=== PATIENT | female | born 1970 | race Caucasian/White ===

== ENCOUNTER 2016-08-02 15:43 | Emergency (ER) | payer SELFPAY ==
--- NOTE | 2016-08-02 16:34 | ER Document Report ---
ED Medical Screen (RME) - General Chief Complaint: Breathing Difficulty Stated Complaint: BREATHING ISSUES Notes: 46 yo female c/o cough and difficulty breathing x 1 month. symptoms worse since New Years Mayela. Seen in ED 07/03 for same. Treated with abx, steroids, inhalers and breathing treatments. Symptoms improved briefly. + wheezing, nonproductive cough. + [place]. no hx/o asthma or COPD. + previous smoker. stopped last month since getting sick. + Hx/o Lupus, Fibro. + fever. + headaches TRAVEL OUTSIDE OF THE [place] IN LAST 30 DAYS: No - Related Data Allergies/Adverse Reactions: acetaminophen [From Percocet] Allergy (Verified 05/09/14 19:49) aspirin [Aspirin] Allergy (Verified 05/09/14 19:49) citalopram hydrobromide [From Celexa] Allergy (Verified 09/20/14 15:21) hydrocortisone [Hydrocortisone] Allergy (Verified 09/20/14 15:21) morphine [Morphine] Allergy (Verified 05/09/14 19:49) NSAIDS (Non-Steroidal Anti-Inflamma [Nsaids] Allergy (Verified 05/09/14 19:49) oxycodone HCl [From Percocet] Allergy (Verified 05/09/14 19:49) pregabalin [From Lyrica] Allergy (Verified 09/20/14 15:21) Sulfa (Sulfonamide Antibiotics) Allergy (Verified 05/09/14 19:49) Past Medical History - Social History Chew tobacco use (# tins/day): No Frequency of alcohol use: None Drug Abuse: None Pulmonary Medical History: Reports: Hx COPD Neurological Medical History: Reports: Hx Migraine - Immunizations Hx Diphtheria, Pertussis, Tetanus Vaccination: No Physical Exam - Vital signs Vitals: Temp Pulse Resp BP Pulse Ox 98.2 F 107 H 20 126/64 H 96 08/02/16 16:03 08/02/16 16:03 08/02/16 16:03 08/02/16 16:03 08/02/16 16:03 Course - Vital Signs Vital signs: Temp Pulse Resp BP Pulse Ox 98.2 F 107 H 20 126/64 H 96 08/02/16 16:03 08/02/16 16:03 08/02/16 16:03 08/02/16 16:03 08/02/16 16:03
[2016-08-02] MEDS ORDERED: PREDNISONE 20 MG TABLET PO ONE ×2 (16:35→18:16)
[2016-08-02] MEDS ORDERED: ALBUTEROL SULFATE 0.083% NEB 2.5 MG/3 ML AMPUL NEB ONE ×2 (16:35→17:48)
[2016-08-02 17:20] LABS: ALANINE AMINOTRANSFERASE 29 U/L (9-52); ALBUMIN 4.9 g/dL (3.5-5.0); ALKALINE PHOSPHATASE 96 U/L (38-126); ANION GAP 14 (5-19); ASPARTATE AMINO TRANSFERASE 21 U/L (14-36); BILIRUBIN,TOTAL 0.4 mg/dL (0.2-1.3); BLOOD UREA NITROGEN 14 mg/dL (7-20); CALCIUM 9.9 mg/dL (8.4-10.2); CARBON DIOXIDE 22 mmol/L (22-30); CHLORIDE 105 mmol/L (98-107); CREATININE RESULT 0.72 mg/dL (0.52-1.25); GLUCOSE 89 mg/dL (75-110); POTASSIUM 4.7 mmol/L (3.6-5.0); SODIUM 141.3 mmol/L (137-145); TOTAL PROTEIN 7.8 g/dL (6.3-8.2)
[2016-08-02] MEDS ORDERED: IPRATROPIUM/ALBUTEROL 0.5-2.5 MG/3 ML AMPUL NEB ONE ×2 (17:47→18:16)
[2016-08-02 17:50] LABS: ABSOLUTE BASOPHILS # (AUTO) 0.1 10^3/uL (0.0-0.2); ABSOLUTE EOSINOPHILS # (AUTO) 0.5 10^3/uL (0.0-0.6); ABSOLUTE LYMPHOCYTES (AUTO) 1.4 10^3/uL (0.5-4.7); ABSOLUTE MONOCYTES (AUTO) 0.4 10^3/uL (0.1-1.4); ABSOLUTE NEUT (AUTO) 2.9 10^3/uL (1.7-8.2); BASOPHILS % (AUTO) 1.3 % (0-2); EOSINOPHILS % (AUTO) 9.4 % (0-6); HEMATOCRIT 31.2 % (36.0-47.0); HEMOGLOBIN 9.5 g/dL (12.0-15.5); HGB HCT DIFFERENCE -2.7; LYMPHOCYTES % (AUTO) 27.5 % (13-45); MEAN CORPUSCULAR HEMOGLOBIN 18.4 pg (27.0-33.4); MEAN CORPUSCULAR HGB CONC 30.5 g/dL (32.0-36.0); MEAN CORPUSCULAR VOLUME 60 fl (80-97); MONOCYTES % (AUTO) 7.1 % (3-13); RED BLOOD COUNT 5.18 10^6/uL (3.72-5.28); RED CELL DISTRIBUTION WIDTH 21.1 % (11.5-14.0); SEGMENTED NEUTROPHILS % (AUTO) 54.7 % (42-78); WHITE BLOOD COUNT 5.2 10^3/uL (4.0-10.5)
[2016-08-02 17:58] LABS: ANISOCYTOSIS 3+; HYPOCHROMASIA SLIGHT; MICROCYTOSIS 3+; OVALOCYTES SLIGHT; TEAR DROP CELLS SLIGHT
[2016-08-02 18:00] LABS: POIKILOCYTOSIS 1+; TARGET CELLS 1+
--- NOTE | 2016-08-02 18:08 | ER Document Report ---
ED Respiratory Problem - General Chief Complaint: Breathing Difficulty Stated Complaint: BREATHING ISSUES Notes: The patient is a 46-year-old female, past medical history former smoker (quit one month ago), presents with 1 month of dry cough. She was placed on azithromycin, steroids and albuterol 4 weeks ago with mild relief of her symptoms. Her symptoms started back when she was running around her [place]. Her family members had similar symptoms, but their cough resolved. She tried her albuterol without much relief. She denies chest pain, fevers, sputum, leg swelling, nausea, vomiting, back pain or recent travel. TRAVEL OUTSIDE OF THE [place] IN LAST 30 DAYS: No - Related Data Allergies/Adverse Reactions: acetaminophen [From Percocet] Allergy (Verified 05/09/14 19:49) aspirin [Aspirin] Allergy (Verified 05/09/14 19:49) citalopram hydrobromide [From Celexa] Allergy (Verified 09/20/14 15:21) hydrocortisone [Hydrocortisone] Allergy (Verified 09/20/14 15:21) morphine [Morphine] Allergy (Verified 05/09/14 19:49) NSAIDS (Non-Steroidal Anti-Inflamma [Nsaids] Allergy (Verified 05/09/14 19:49) oxycodone HCl [From Percocet] Allergy (Verified 05/09/14 19:49) pregabalin [From Lyrica] Allergy (Verified 09/20/14 15:21) Sulfa (Sulfonamide Antibiotics) Allergy (Verified 05/09/14 19:49) Past Medical History - Social History Smoking Status: Current Some Day Smoker Chew tobacco use (# tins/day): No Frequency of alcohol use: None Drug Abuse: None Family History: Reviewed & Not Pertinent Patient has suicidal ideation: No Patient has homicidal ideation: No Pulmonary Medical History: Reports: Hx COPD Neurological Medical History: Reports: Hx Migraine - Immunizations Hx Diphtheria, Pertussis, Tetanus Vaccination: No Review of Systems - Review of Systems Notes: REVIEW OF SYSTEMS: CONSTITUTIONAL: Denies fever, chills, or sweats. Denies recent illness. EENT: Denies eye, ear, throat, or mouth pain or symptoms. Denies nasal or sinus congestion. CARDIOVASCULAR: Denies chest pain. RESPIRATORY: +cough, wheezing GASTROINTESTINAL: Denies abdominal pain. Denies nausea, vomiting, or diarrhea. Denies constipation. Last BM: GENITOURINARY: Denies difficulty urinating, painful urination, burning, frequency, or blood in urine. FEMALE GENITOURINARY: Denies vaginal bleeding, abnormal or irregular periods. MUSCULOSKELETAL: Denies neck or back pain or joint pain or swelling. SKIN: Denies rash or skin lesions. HEMATOLOGIC: Denies easy bruising or bleeding. LYMPHATIC: Denies swollen, enlarged glands. NEUROLOGICAL: Denies altered mental status or loss of consciousness. Denies headache. Denies weakness or paralysis or loss of use of either side. Denies problems with gait or speech. Denies sensory or motor loss. PSYCHIATRIC: Denies anxiety or stress or depression. ALL OTHER SYSTEMS REVIEWED AND NEGATIVE. Physical Exam - Vital signs Vitals: Temp Pulse Resp BP Pulse Ox 98.2 F 107 H 20 126/64 H 96 08/02/16 16:03 08/02/16 16:03 08/02/16 16:03 08/02/16 16:03 08/02/16 16:03 - Notes Notes: PHYSICAL EXAMINATION: GENERAL: Well-appearing, well-nourished and in no acute distress. HEAD: Atraumatic, normocephalic. EYES: Pupils equal round and reactive to light, extraocular movements intact, sclera anicteric, conjunctiva are normal. ENT: nares patent, oropharynx clear without exudates. Moist mucous membranes. NECK: Normal range of motion, supple without lymphadenopathy LUNGS: Mild end-expiratory wheezing. No respiratory distress. HEART: Regular rhythm without murmurs. Tachycardia. ABDOMEN: Soft, nontender, normoactive bowel sounds. No guarding, no rebound. No masses appreciated. EXTREMITIES: Normal range of motion, no pitting or edema. No cyanosis. NEUROLOGICAL: Cranial nerves grossly intact. Normal speech, normal gait. Normal sensory, motor, and reflex exams. PSYCH: Normal mood, normal affect. SKIN: Warm, Dry, normal turgor, no rashes or lesions noted. Course - Re-evaluation Re-evalutation: 08/02/16 19:42 After DuoNeb and steroids, patient's cough and shortness of breath improved. Repeat lung exam does not reveal any wheezing. Chest x-ray does not show any infiltrates. Due to history of smoking and 5 weeks of bronchitis symptoms, will send home with antibiotics, steroids and albuterol. 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 - Vital Signs Vital signs: Temp Pulse Resp BP Pulse Ox 98.2 F 107 H 20 126/64 H 96 08/02/16 16:03 08/02/16 16:03 08/02/16 16:03 08/02/16 16:03 08/02/16 16:03 - Laboratory Result Diagrams: 08/02/16 16:40 08/02/16 16:40 Laboratory results interpreted by me: 08/02/16 16:40 Hgb 9.5 L Hct 31.2 L MCV 60 L MCH 18.4 L MCHC 30.5 L RDW 21.1 H Eosinophils % 9.4 H - Diagnostic Test Radiology reviewed: Image reviewed, Reports reviewed Radiology results interpreted by me: 08/02/16 18:21 NAD Discharge - Discharge Clinical Impression: Chronic bronchitis Qualifiers: Chronic bronchitis type: simple Qualified Code(s): J41.0 - Simple chronic bronchitis Condition: Good Disposition: HOME, SELF-CARE Additional Instructions: BRONCHITIS WITH BRONCHOSPASM (WHEEZING): You have bronchitis with bronchospasm (wheezing). Sometimes people develop wheezing with a chest cold. This occurs either because of an underlying tendency toward asthma or because the virus itself irritates the bronchial tubes. This irritation causes cough, shortness of breath, and wheezing. Emergency treatment of bronchospasm may include adrenaline shots or bronchodilator aerosol. You may feel lightheaded and have a rapid pulse for an hour or two. Rest and get plenty of fluids. At home, we'll treat you with a bronchodilator inhaler. Corticosteroids may be required for some patients. Until you recover, avoid chemical fumes, dusts, pollens, and exercising in very cold or dry air. If you smoke, stop now! Most cases of bronchitis get better without antibiotics. We prescribe antibiotics when we believe bacteria are damaging your airways, or if there's high risk the bronchitis will worsen into pneumonia. Increase your fluid intake. A cool mist humidifier may make your lungs more comfortable. An expectorant (cough medicine that loosens phlegm) can help. Repeated episodes of bronchitis and bronchospasm may result in lung damage -- for example, chronic bronchitis, recurrent pneumonias, or emphysema. If you develop a fever, increased wheezing, chest pain, or severe shortness of breath, you should contact the doctor immediately. COUGH-SUPPRESSANT & EXPECTORANT MEDICATION: You are to use a cough medication as needed for relief of symptoms. This medicine is a combination of an expectorant (to make the mucous thinner and more easily "coughed up") and a cough suppressant (to reduce the frequency of coughing). The cough-suppressant medicine is related to narcotics. You may experience mild nausea and sleepiness. Some patients who are very sensitive to narcotics may have stomach pain from this medicine. Taking the medicine with food reduces these side effects. Do not drive or work with machinery until you know how this medicine affects you. The expectorant should have no side effects. Iodine-containing expectorants (such as organidin) should not be taken by persons with active thyroid disease unless approved by your doctor. Call the doctor if you develop shortness of breath, hives, rash, itching, lightheadedness, or severe nausea and vomiting. INHALED BRONCHODILATORS: You have received a treatment of and/or prescription for an inhaled bronchodilator -- a medication which stimulates the airways in the lung to dilate. This improves the flow of air in asthma, bronchitis, and emphysema. These medicines have some similarity to adrenaline, and can cause similar side effects: shakiness, racing heart, and a sense of nervousness. These side effects decrease with time. Contact your doctor if these side effects are severe. Do not over-use the medicine. Too-frequent use of the inhaler may make it ineffective. Call your doctor if the inhaler is not controlling your symptoms at the prescribed doses. STEROID MEDICATION: You have been given an injection of or oral medicine of the cortisone/ steroid class. This medication is used to control inflammation or allergy. Mark t is usually only given for a short period of time, until the acute process subsides. There are usually no side effects from short-term use of cortisone-like medications. Some persons feel an increased sense of well-being and are not sleepy at bedtime. Long-term use of cortisone medications is best avoided, unless required for a severe condition. If your condition does not remit, or relapses after the course of corticosteroid medication, you should consult your physician. ANTIBIOTIC THERAPY: You have been given an antibiotic prescription. It's important that you take all the medication, unless instructed otherwise by your physician. Failure to complete the entire course can result in relapse of your condition. Common side effects of antibiotics include nausea, intestinal cramping, or diarrhea. Women may develop vaginal yeast infections, and babies can get yeast (thrush) in the mouth following the use of antibiotics. Contact your physician if you develop significant side effects from this medication. Allergy to this antibiotic can result in hives, wheezing, faintness, or itching. If symptoms of allergy occur, stop the medication and call your doctor. AMOXICILLIN: Amoxicillin is a member of the penicillin family. It covers the germs likely to cause ear, bronchial, and urinary infections better than plain penicillin. Amoxicillin can be taken without regard to meals. Nausea after taking the medication is rare, but can occur. Diarrhea can occur, particularly in small children. Vaginal yeast infections and oral thrush in infants are also common. Contact your physician if these problems occur. Allergy to penicillins is common. If you have had an allergic reaction to any drug of the penicillin family, you should never take any other penicillin. Notify your doctor at once if you develop hives, itching, swelling, faintness, or shortness of breath. Less serious side effects can include nausea or diarrhea. USE OF ACETAMINOPHEN (Tylenol): Acetaminophen may be taken for pain relief or fever control. It's much safer than aspirin, offering a wider range of "safe" dosages. It is safe during . Some brand names are Tylenol, Panadol, Datril, Anacin 3, Tempra, and Liquiprin. Acetaminophen can be repeated every four hours. The following are maximum recommended dosages: >89 pounds or adults 650 mg to 900 mg Acetaminophen can be repeated every four hours. Maximum dose not to exceed 4000 mg a day. SMOKING: If you smoke, you should stop smoking. The tar and chemicals in cigarette smoke are harmful. Smoking has been shown to cause: emphysema chronic bronchitis lung cancer mouth and throat cancer stomach and pancreas cancer premature aging defects In addition, smoking increases ear and lung infections in children of smokers. FOLLOW-UP CARE: If you have been referred to a physician for follow-up care, call the physician s office for an appointment as you were instructed or within the next two days. If you experience worsening or a significant change in your symptoms, notify the physician immediately or return to the Emergency Department at any time for re-evaluation. Prescriptions: Benzonatate [Tessalon Perle 100 mg Capsule] 100 mg PO Q8HP PRN #20 cap PRN Reason: Albuterol Sulfate [Albuterol Sulfate 2.5mg/3 mL] 2.5 mg IH Q4H PRN #30 ml PRN Reason: Amoxicillin 500 mg PO BID #14 capsule Prednisone 10 mg PO DAILY 12 Days Referrals: DEISY CAMACHO MD [ACTIVE STAFF] - Follow up as needed
[2016-08-02 20:20] VITALS: BP 142/90
== END 2016-08-02 20:17 | disposition home or self-care (01) ==
LOC: ER 15:43
DX: J41.0 Simple chronic bronchitis (principal); R06.00 Dyspnea, unspecified; R05 Cough; F17.200 Nicotine dependence, unspecified, uncomplicated; J44.9 Chronic obstructive pulmonary disease, unspecified; Z88.6 Allergy status to analgesic agent; Z88.2 Allergy status to sulfonamides
CPT/HCPCS: 94640 ×2; 99285; 36415; 85025; 80053; 71020; J7512; J7620

== ENCOUNTER 2017-03-09 15:12 | Emergency (ER) | payer SELFPAY ==
[2017-03-09] MEDS ORDERED: IPRATROPIUM/ALBUTEROL 0.5-2.5 MG/3 ML AMPUL NEB ONE (15:51)
[2017-03-09] MEDS ORDERED: ALBUTEROL SULFATE 0.083% NEB 2.5 MG/3 ML AMPUL NEB ONE (15:51)
[2017-03-09] MEDS ORDERED: MAGNESIUM SULFATE/D5W 100 ML IV ONE (15:51)
[2017-03-09] MEDS ORDERED: PREDNISONE 20 MG TABLET PO ONE (15:52)
--- NOTE | 2017-03-09 15:58 | ER Document Report ---
ED Medical Screen (RME) - General Chief Complaint: Chest Pain Stated Complaint: SHORTNESS OF BREATH/CHEST PAINS Time Seen by Provider: 03/09/17 15:50 TRAVEL OUTSIDE OF THE [place] IN LAST 30 DAYS: No - HPI Notes: 03/09/17 15:57 Difficulty in breathing for 1 week uses cigarettes - Related Data Allergies/Adverse Reactions: acetaminophen [From Percocet] Allergy (Verified 03/09/17 15:22) aspirin [Aspirin] Allergy (Verified 03/09/17 15:22) citalopram hydrobromide [From Celexa] Allergy (Verified 03/09/17 15:22) hydrocortisone [Hydrocortisone] Allergy (Verified 03/09/17 15:22) morphine [Morphine] Allergy (Verified 03/09/17 15:22) NSAIDS (Non-Steroidal Anti-Inflamma [Nsaids] Allergy (Verified 03/09/17 15:22) oxycodone HCl [From Percocet] Allergy (Verified 03/09/17 15:22) pregabalin [From Lyrica] Allergy (Verified 03/09/17 15:22) Sulfa (Sulfonamide Antibiotics) Allergy (Verified 03/09/17 15:22) Home Medications: Current Home Medications Guaifenesin [Mucinex] 600 mg PO Q4 03/09/17 [History] Past Medical History Pulmonary Medical History: Reports: Hx COPD Neurological Medical History: Reports: Hx Migraine Renal/ Medical History: Denies: Hx Peritoneal Dialysis - Immunizations Hx Diphtheria, Pertussis, Tetanus Vaccination: No Review of Systems - Review of Systems Respiratory: Cough, Short of breath, Wheezing -: Yes All other systems reviewed and negative Physical Exam - Vital signs Vitals: Temp Pulse Resp BP Pulse Ox 98.0 F 100 18 144/83 H 96 03/09/17 15:18 03/09/17 15:18 03/09/17 15:18 03/09/17 15:18 03/09/17 15:18 - General General appearance: Appears well, Alert - HEENT Head: Normocephalic, Atraumatic Eyes: Normal Pupils: PERRL - Respiratory Respiratory status: No respiratory distress Chest status: Nontender Breath sounds: Rhonchi, Wheezing Chest palpation: Normal - Cardiovascular Rhythm: Regular Heart sounds: Normal auscultation Murmur: No - Abdominal Inspection: Normal Distension: No distension Bowel sounds: Normal Tenderness: Nontender Organomegaly: No organomegaly - Back Back: Normal, Nontender - Extremities General upper extremity: Normal inspection, Nontender, Normal color, Normal ROM , Normal temperature General lower extremity: Normal inspection, Nontender, Normal color, Normal ROM , Normal temperature, Normal weight bearing. No: Giuseppe's sign - Neurological Neuro grossly intact: Yes Cognition: Normal Orientation: AAOx4 Willis Coma Scale Eye Opening: Spontaneous Willis Coma Scale Verbal: Oriented Willis Coma Scale Motor: Obeys Commands Willis Coma Scale Total: 15 Speech: Normal Motor strength normal: LUE, RUE, LLE, RLE Sensory: Normal - Psychological Associated symptoms: Normal affect, Normal mood - Skin Skin Temperature: Warm Skin Moisture: Dry Skin Color: Normal Course - Vital Signs Vital signs: Temp Pulse Resp BP Pulse Ox 98.0 F 100 18 144/83 H 96 03/09/17 15:18 03/09/17 15:18 03/09/17 15:18 03/09/17 15:18 03/09/17 15:18
--- NOTE | 2017-03-09 16:28 | ER Document Report ---
ED General - General Chief Complaint: Chest Pain Stated Complaint: SHORTNESS OF BREATH/CHEST PAINS Time Seen by Provider: 03/09/17 15:50 Information source: Patient Notes: 45-year-old female with past medical history including lupus, migraines, vertigo , fibromyalgia, with a long smoking history who presents today stating some runny nose, congestion, cough, and wheezing for the last week. She also states some substernal chest pain with coughing. She also states positive bilateral leg cramps for "many years". She denies any recent trips, travel, with intermittent low-grade fevers. She denies any aggravating or relieving factors. Patient states she stopped smoking 1 week ago. Patient states she had a similar episode of this in July which somewhat cleared and then returned recently. TRAVEL OUTSIDE OF THE [place] IN LAST 30 DAYS: No - HPI Onset: Other - See above Onset/Duration: Gradual Quality of pain: Dull Severity: Mild Pain Level: Denies Associated symptoms: Other - See above Exacerbated by: Denies Relieved by: Denies Similar symptoms previously: Yes Recently seen / treated by doctor: Yes - Related Data Allergies/Adverse Reactions: acetaminophen [From Percocet] Allergy (Verified 03/09/17 15:22) aspirin [Aspirin] Allergy (Verified 03/09/17 15:22) citalopram hydrobromide [From Celexa] Allergy (Verified 03/09/17 15:22) hydrocortisone [Hydrocortisone] Allergy (Verified 03/09/17 15:22) morphine [Morphine] Allergy (Verified 03/09/17 15:22) NSAIDS (Non-Steroidal Anti-Inflamma [Nsaids] Allergy (Verified 03/09/17 15:22) oxycodone HCl [From Percocet] Allergy (Verified 03/09/17 15:22) pregabalin [From Lyrica] Allergy (Verified 03/09/17 15:22) Sulfa (Sulfonamide Antibiotics) Allergy (Verified 03/09/17 15:22) Home Medications: Current Home Medications Guaifenesin [Mucinex] 600 mg PO Q4 03/09/17 [History] Past Medical History - General Information source: Patient - Social History Smoking Status: Former Smoker Cigarette use (# per day): No Chew tobacco use (# tins/day): No Smoking Education Provided: No Frequency of alcohol use: None Drug Abuse: None Family History: Reviewed & Not Pertinent Pulmonary Medical History: Reports: Hx COPD Neurological Medical History: Reports: Hx Migraine Renal/ Medical History: Denies: Hx Peritoneal Dialysis - Immunizations Hx Diphtheria, Pertussis, Tetanus Vaccination: No Review of Systems - Review of Systems Constitutional: denies: Fever EENT: denies: Eye discharge, Nose discharge Cardiovascular: denies: Palpitations, Heart racing, Syncope, Dizziness Respiratory: denies: Short of breath Gastrointestinal: denies: Vomiting Genitourinary: denies: Dysuria Musculoskeletal: denies: Leg swelling Skin: Other - no hives. denies: Rash Neurological/Psychological: Other - no slurred speech -: Yes All other systems reviewed and negative Physical Exam - Vital signs Vitals: Temp Pulse Resp BP Pulse Ox 98.0 F 100 18 144/83 H 96 03/09/17 15:18 03/09/17 15:18 03/09/17 15:18 03/09/17 15:18 03/09/17 15:18 Notes: Reviewed vital signs and nursing note as charted by RN. CONSTITUTIONAL: Alert and oriented and responds appropriately to questions. Well -appearing; well-nourished HEAD: Normocephalic; atraumatic EYES: PERRL; Conjunctivae clear, sclerae non-icteric ENT: Normal nose; no rhinorrhea; moist mucous membranes; pharynx without lesions noted NECK: Supple without meningismus; non-tender; no cervical lymphadenopathy, no masses CARD: Regular rate and rhythm; no murmurs, no clicks, no rubs, no gallops; symmetric distal pulses RESP: Normal chest excursion without splinting or tachypnea; mild tenderness to palpation of the anterior chest wall; breath sounds clear and equal bilaterally ; bilateral end expiratory wheezing without rales or rhonchi ABD/GI: Normal bowel sounds; non-distended; soft, non-tender BACK: The back appears normal and is non-tender to palpation, there is no CVA tenderness EXT: Normal ROM in all joints; non-tender to palpation; no cyanosis, no effusions, no edema SKIN: Normal color for age and race; warm; dry; good turgor; capillary refill < 2 seconds; no acute lesions noted NEURO: Moves all extremities equally; Motor and sensory function intact PSYCH: The patient's mood and manner are appropriate. Grooming and personal hygiene are appropriate. Course - Re-evaluation Re-evalutation: 03/09/17 16:28 Given the above history and physical examination we will order an x-ray of the chest, cardiac panel, d-dimer, x-ray of the chest, provide prednisone and duo nebulizers. Given the patient has a history of lupus, complaining of intermittent calf pain for many years, I will order a d-dimer. 03/09/17 16:36 EKG shows hr or 91, NSR, normal axis, no obvious st elevation or depression 03/09/17 17:24 Chest x-ray shows normal heart, normal mediastinum, no fractures, normal lung snyder, no pneumothorax. D-dimer and troponin as recorded. White count is recorded. Patient's wheezing is improved. Given the above history and physical examination with the laboratory, EKG, and x-ray is recorded, I will order a 4 day course of steroids , albuterol inhaler, with strict return precautions and follow-up with primary provider. - Vital Signs Vital signs: Temp Pulse Resp BP Pulse Ox 98.0 F 100 16 144/83 H 96 03/09/17 15:18 03/09/17 15:18 03/09/17 15:56 03/09/17 15:18 03/09/17 15:18 - Laboratory Result Diagrams: 03/09/17 16:05 03/09/17 16:05 Laboratory results interpreted by me: 03/09/17 03/09/17 16:05 16:05 RBC 5.32 H Hgb 9.9 L Hct 32.7 L MCV 61 L MCH 18.5 L MCHC 30.2 L RDW 21.2 H Eosinophils % (Manual) 8 H Chloride 108 H Carbon Dioxide 18 L Alkaline Phosphatase 148 H Total Protein 8.6 H Discharge - Discharge Clinical Impression: Cough, Wheezing Condition: Good Disposition: HOME, SELF-CARE Additional Instructions: Come back immediately with any worsening cough, fevers or vomiting, calf pain or leg swelling, worsening shortness of breath, or any other acute problems. Please obtain 2 puffs of the albuterol inhaler every 4 hours for the next 2 days and then every 6 hours as needed after that. Prescriptions: Prednisone [Deltasone 20 mg Tablet] 3 tab PO DAILY 5 Days
--- NOTE | 2017-03-09 16:31 | RADIOLOGY REPORT (SQ) ---
EXAM DESCRIPTION: CHEST SINGLE VIEW COMPLETED DATE/TIME: 03/09/2017 4:17 pm REASON FOR STUDY: sob COMPARISON: Two-view chest 08/02/2016 EXAM PARAMETERS: NUMBER OF VIEWS: One view. TECHNIQUE: Single frontal radiographic view of the chest acquired. RADIATION DOSE: NA LIMITATIONS: None. FINDINGS: LUNGS AND PLEURA: No opacities, masses or pneumothorax. No pleural effusion. MEDIASTINUM AND HILAR STRUCTURES: No masses. Contour normal. HEART AND VASCULAR STRUCTURES: Heart normal in size. Normal vasculature. BONES: No acute findings. HARDWARE: None in the chest. OTHER: No other significant finding. IMPRESSION: NO ACUTE RADIOGRAPHIC FINDING IN THE CHEST. TECHNICAL DOCUMENTATION: JOB ID: [id number]
[2017-03-09 16:37] LABS: PROTHROMBIN TIME 12.9 SEC (11.4-15.4)
[2017-03-09 16:38] LABS: HEMATOCRIT 32.7 % (36.0-47.0); HEMOGLOBIN 9.9 g/dL (12.0-15.5); MEAN CORPUSCULAR HEMOGLOBIN 18.5 pg (27.0-33.4); MEAN CORPUSCULAR HGB CONC 30.2 g/dL (32.0-36.0); RED BLOOD COUNT 5.32 10^6/uL (3.72-5.28); RED CELL DISTRIBUTION WIDTH 21.2 % (11.5-14.0); WHITE BLOOD COUNT 6.2 10^3/uL (4.0-10.5)
[2017-03-09 16:53] LABS: ALANINE AMINOTRANSFERASE 36 U/L (9-52); ALBUMIN 4.9 g/dL (3.5-5.0); ALKALINE PHOSPHATASE 148 U/L (38-126); ANION GAP 15 (5-19); ASPARTATE AMINO TRANSFERASE 23 U/L (14-36); BILIRUBIN,DIRECT 0.4 mg/dL (0.0-0.4); BILIRUBIN,TOTAL 0.5 mg/dL (0.2-1.3); BLOOD UREA NITROGEN 11 mg/dL (7-20); CALCIUM 10.1 mg/dL (8.4-10.2); CARBON DIOXIDE 18 mmol/L (22-30); CHLORIDE 108 mmol/L (98-107); CREATININE RESULT 0.73 mg/dL (0.52-1.25); D-DIMER 0.31 ug/mL (0.00-0.50); GLUCOSE 91 mg/dL (75-110); MAGNESIUM 2.2 mg/dL (1.6-2.3); POTASSIUM 4.7 mmol/L (3.6-5.0); SODIUM 141.3 mmol/L (137-145); TOTAL PROTEIN 8.6 g/dL (6.3-8.2)
[2017-03-09 17:04] LABS: BASOPHILS % (MANUAL) 0 % (0-2); EOSINOPHILS % (MANUAL) 8 % (0-6); LYMPHOCYTES % (MANUAL) 25 % (13-45); TOTAL CELLS COUNTED 100
[2017-03-09 17:08] LABS: HYPOCHROMASIA 2+; MICROCYTOSIS 3+; TOXIC GRANULATION SLIGHT
[2017-03-09 17:09] LABS: ANISOCYTOSIS 2+; MEAN CORPUSCULAR VOLUME 61 fl (80-97); POIKILOCYTOSIS 1+; TARGET CELLS SLIGHT
[2017-03-09] MEDS ORDERED: LEVOFLOXACIN 750 MG TABLET PO ONE (17:28)
[2017-03-09] MEDS ORDERED: ALBUTEROL SULFATE HFA (90 MCG/PUFF) 8 GM MDI (1 MDI/ER DISP) IH PRN (17:28)
[2017-03-09 18:08] VITALS: BP 147/77
--- NOTE | 2017-03-10 16:37 | EKG REPORT ---
SEVERITY:- NORMAL ECG - SINUS RHYTHM : Confirmed by: Kurtis Wynn 10-Mar-2017 16:36:34
[2017-03-12 16:19] LABS: PATH REVIEW PATHOLOGIST REVIEWED
== END 2017-03-09 18:03 | disposition home or self-care (01) ==
LOC: ER 15:12
DX: R05 Cough (principal); R06.2 Wheezing; R07.9 Chest pain, unspecified; R06.02 Shortness of breath; R09.81 Nasal congestion; Z87.891 Personal history of nicotine dependence
CPT/HCPCS: 93005; 94640 ×2; 99285; 96365; 36415; 83690; 83735; 85025; 85610; 80053; 84484; 85379; 71010; 93010; J3475; J7512; J3490; J7620

== ENCOUNTER 2017-05-31 05:39 | Inpatient (IN) | payer SELFPAY ==
[2017-05-31] MEDS ORDERED: IPRATROPIUM/ALBUTEROL 0.5-2.5 MG/3 ML AMPUL NEB ONE ×3 (05:41→07:44)
--- NOTE | 2017-05-31 05:45 | ER Document Report ---
ED Medical Screen (RME) - General Stated Complaint: DIFFICULTY BREATHING Time Seen by Provider: 05/31/17 05:41 Notes: 47-year-old female that comes emergency department by EMS for shortness of breath. Patient is not hypoxic per EMS but was found to be breathing rapidly. She was given 2 albuterol treatments Solu-Medrol, 2 g of magnesium and route. Past medical history of COPD, current smoker, denies home oxygen, has home albuterol. Difficult to get additional history out of patient because of difficulty breathing. TRAVEL OUTSIDE OF THE [place] IN LAST 30 DAYS: No - Related Data Allergies/Adverse Reactions: acetaminophen [From Percocet] Allergy (Verified 03/09/17 15:22) aspirin [Aspirin] Allergy (Verified 03/09/17 15:22) citalopram hydrobromide [From Celexa] Allergy (Verified 03/09/17 15:22) hydrocortisone [Hydrocortisone] Allergy (Verified 03/09/17 15:22) morphine [Morphine] Allergy (Verified 03/09/17 15:22) NSAIDS (Non-Steroidal Anti-Inflamma [Nsaids] Allergy (Verified 03/09/17 15:22) oxycodone HCl [From Percocet] Allergy (Verified 03/09/17 15:22) pregabalin [From Lyrica] Allergy (Verified 03/09/17 15:22) Sulfa (Sulfonamide Antibiotics) Allergy (Verified 03/09/17 15:22) Past Medical History Pulmonary Medical History: Reports: Hx COPD Neurological Medical History: Reports: Hx Migraine Renal/ Medical History: Denies: Hx Peritoneal Dialysis - Immunizations Hx Diphtheria, Pertussis, Tetanus Vaccination: No Physical Exam - Respiratory Respiratory status: Respiratory distress - Severe tachypnea, Labored, Tachypnea Breath sounds: Decreased air movement, Rhonchi
--- NOTE | 2017-05-31 05:55 | ER Document Report ---
ED Respiratory Problem - General Stated Complaint: DIFFICULTY BREATHING Time Seen by Provider: 05/31/17 05:41 Notes: Patient is a 47-year-old female that comes emergency department by EMS for shortness of breath. Patient is not hypoxic per EMS but was found to be breathing rapidly. She was given 2 albuterol treatments Solu-Medrol, 2 g of magnesium and route. Past medical history of COPD, current smoker, denies home oxygen, has home albuterol. Difficult to get additional history out of patient because of difficulty breathing. TRAVEL OUTSIDE OF THE [place] IN LAST 30 DAYS: No - Related Data Allergies/Adverse Reactions: acetaminophen [From Percocet] Allergy (Verified 05/31/17 06:17) aspirin [Aspirin] Allergy (Verified 05/31/17 06:17) citalopram hydrobromide [From Celexa] Allergy (Verified 05/31/17 06:17) cortisone Allergy (Verified 05/31/17 06:17) hydrocortisone [Hydrocortisone] Allergy (Verified 05/31/17 06:17) morphine [Morphine] Allergy (Verified 05/31/17 06:17) NSAIDS (Non-Steroidal Anti-Inflamma [Nsaids] Allergy (Verified 05/31/17 06:17) oxycodone HCl [From Percocet] Allergy (Verified 05/31/17 06:17) pregabalin [From Lyrica] Allergy (Verified 05/31/17 06:17) Sulfa (Sulfonamide Antibiotics) Allergy (Verified 05/31/17 06:17) Past Medical History - General Information source: Patient, Emergency Med Personnel - Social History Smoking Status: Current Every Day Smoker Frequency of alcohol use: None Drug Abuse: None Lives with: Spouse/Significant other Family History: Reviewed & Not Pertinent Pulmonary Medical History: Reports: Hx COPD Neurological Medical History: Reports: Hx Migraine Renal/ Medical History: Denies: Hx Peritoneal Dialysis Surgical Hx: Negative - Immunizations Hx Diphtheria, Pertussis, Tetanus Vaccination: No Review of Systems - Review of Systems Constitutional: No symptoms reported EENT: No symptoms reported Cardiovascular: No symptoms reported Respiratory: See HPI Gastrointestinal: No symptoms reported Genitourinary: No symptoms reported Female Genitourinary: No symptoms reported Musculoskeletal: No symptoms reported Skin: No symptoms reported Hematologic/Lymphatic: No symptoms reported Neurological/Psychological: No symptoms reported Physical Exam - Vital signs Vitals: Temp Resp Pulse Ox 97.7 F 31 H 100 05/31/17 05:41 05/31/17 05:41 05/31/17 05:41 Interpretation: Normal - General General appearance: Alert, Anxious In distress: Moderate - HEENT Head: Normocephalic, Atraumatic Eyes: Normal Pupils: PERRL - Respiratory Respiratory status: Respiratory distress, Labored, Retractions, Tachypnea Chest status: Nontender Breath sounds: Decreased air movement, Nonproductive cough, Rhonchi, Wheezing - Cardiovascular Rhythm: Regular Heart sounds: Normal auscultation Murmur: No - Abdominal Inspection: Normal Distension: No distension Bowel sounds: Normal Tenderness: Nontender Organomegaly: No organomegaly - Back Back: Normal, Nontender - Extremities General upper extremity: Normal inspection, Nontender, Normal color, Normal ROM , Normal temperature General lower extremity: Normal inspection, Nontender, Normal color, Normal ROM , Normal temperature, Normal weight bearing. No: Giuseppe's sign - Neurological Neuro grossly intact: Yes Cognition: Normal Orientation: AAOx4 Hector Coma Scale Eye Opening: Spontaneous Hector Coma Scale Verbal: Oriented Hector Coma Scale Motor: Obeys Commands Willis Coma Scale Total: 15 Speech: Normal Motor strength normal: LUE, RUE, LLE, RLE Sensory: Normal - Psychological Associated symptoms: Normal affect, Normal mood - Skin Skin Temperature: Warm Skin Moisture: Diaphoretic Skin Color: Flushed Course - Re-evaluation Re-evalutation: Patient reported that she has been worsening for several days. Has been confirmed this. She denies any medical history other than COPD, she is not on oxygen at home. She denies having any chest pain or any cardiac history. 05/31/17 05:45 Patient is being closely monitored. She was admitted with severe respiratory distress, diaphoretic, tachypnea, retractions, very labored breathing, rhonchi throughout. Decreased breath sounds. No hypoxia. Patient placed on BiPAP immediately. Already given magnesium and Solu-Medrol, giving additional DuoNeb treatments. 05/31/17 05:55 Patient has started to significantly improve breathing has improved although she still has tachypnea. She is more alert and conversational. Will continue to monitor. EKG shows tachycardia at rate of 102, no T-wave inversions or ST segment changes in consecutive leads. Some artifact from tachypnea. No comparison. Chest x-ray unremarkable, chemistry unremarkable, CBC shows no leukocytosis, shows anemia. Cardiac enzyme indeterminate, I suspect this is respiratory in nature, patient came in with respiratory distress, she has denied any chest pain , she has no cardiac history, EKG is nonischemic. Will cycle. Discussed with Dr. Estes, she recommends admitting patient to [facility]. Spoke with Ms. Tyler, patient will be admitted to the [facility]. - Vital Signs Vital signs: Temp Pulse Resp BP Pulse Ox 97.7 F 25 H 112/74 97 05/31/17 05:41 05/31/17 07:01 05/31/17 07:01 05/31/17 07:01 - Laboratory Result Diagrams: 05/31/17 05:47 05/31/17 05:47 Laboratory results interpreted by me: 05/31/17 05/31/17 05:47 05:47 Hgb 10.0 L Hct 32.1 L MCV 62 L MCH 19.3 L MCHC 31.1 L RDW 19.7 H Eosinophils % 6.3 H Carbon Dioxide 21 L Glucose 134 H AST 41 H Critical Care Note - Critical Care Note Total time excluding time spent on procedures (mins): 35 - Respiratory distress , COPD exacerbation Comments: Please allow 35 minutes of critical care time for management of patient with respiratory distress requiring multiple breathing treatments, BiPAP, multiple re -evaluations, antibiotics, consultation and admission to the hospital. Discharge - Discharge Clinical Impression: Respiratory distress, COPD exacerbation, Tobacco abuse Condition: Stable Disposition: ADMITTED INPATIENT Admitting Provider: Hospitalist Unit Admitted: [facility]
[2017-05-31] MEDS ORDERED: CEFTRIAXONE 1 GM/D5W RTU 1 GM/50 ML RTUPB IV ONE (06:03)
[2017-05-31 06:04] LABS: VENOUS BLOOD BASE EXCESS -0.2 mmol/L; VENOUS BLOOD HCO3 25.5 mmol/L (20-32); VENOUS BLOOD PCO2 46.4 mmHg (35-63); VENOUS BLOOD PH 7.36 (7.30-7.42)
[2017-05-31] MEDS ORDERED: AZITHROMYCIN INJ 500 MG VIAL IV ONE (06:04)
[2017-05-31 06:17] LABS: ABSOLUTE BASOPHILS # (AUTO) 0.1 10^3/uL (0.0-0.2); ABSOLUTE EOSINOPHILS # (AUTO) 0.6 10^3/uL (0.0-0.6); ABSOLUTE LYMPHOCYTES (AUTO) 1.9 10^3/uL (0.5-4.7); ABSOLUTE MONOCYTES (AUTO) 0.7 10^3/uL (0.1-1.4); ABSOLUTE NEUT (AUTO) 6.2 10^3/uL (1.7-8.2); BASOPHILS % (AUTO) 0.8 % (0-2); EOSINOPHILS % (AUTO) 6.3 % (0-6); HEMATOCRIT 32.1 % (36.0-47.0); HGB HCT DIFFERENCE -2.1; LYMPHOCYTES % (AUTO) 19.9 % (13-45); MEAN CORPUSCULAR HEMOGLOBIN 19.3 pg (27.0-33.4); MEAN CORPUSCULAR HGB CONC 31.1 g/dL (32.0-36.0); MEAN CORPUSCULAR VOLUME 62 fl (80-97); MONOCYTES % (AUTO) 7.7 % (3-13); RED BLOOD COUNT 5.16 10^6/uL (3.72-5.28); RED CELL DISTRIBUTION WIDTH 19.7 % (11.5-14.0); SEGMENTED NEUTROPHILS % (AUTO) 65.3 % (42-78); WHITE BLOOD COUNT 9.5 10^3/uL (4.0-10.5)
--- NOTE | 2017-05-31 06:23 | RADIOLOGY REPORT (SQ) ---
EXAM DESCRIPTION: CHEST SINGLE VIEW COMPLETED DATE/TIME: 05/31/2017 6:07 am REASON FOR STUDY: shortness of breath COMPARISON: 03/09/2017 EXAM PARAMETERS: NUMBER OF VIEWS: One view. TECHNIQUE: Single frontal radiographic view of the chest acquired. RADIATION DOSE: NA LIMITATIONS: None. FINDINGS: LUNGS AND PLEURA: No opacities, masses or pneumothorax. No pleural effusion. MEDIASTINUM AND HILAR STRUCTURES: No masses. Contour normal. HEART AND VASCULAR STRUCTURES: Heart normal in size. Normal vasculature. BONES: No acute findings. HARDWARE: None in the chest. OTHER: No other significant finding. IMPRESSION: NO ACUTE RADIOGRAPHIC FINDING IN THE CHEST. TECHNICAL DOCUMENTATION: JOB ID: [id number]
[2017-05-31 06:34] LABS: ALANINE AMINOTRANSFERASE 42 U/L (9-52); ALBUMIN 4.8 g/dL (3.5-5.0); ALKALINE PHOSPHATASE 119 U/L (38-126); ANION GAP 17 (5-19); ASPARTATE AMINO TRANSFERASE 41 U/L (14-36); BILIRUBIN,DIRECT 0.4 mg/dL (0.0-0.4); BILIRUBIN,TOTAL 0.5 mg/dL (0.2-1.3); BLOOD UREA NITROGEN 11 mg/dL (7-20); CALCIUM 9.6 mg/dL (8.4-10.2); CARBON DIOXIDE 21 mmol/L (22-30); CHLORIDE 106 mmol/L (98-107); CREATINE KINASE 80 U/L (30-135); CREATININE RESULT 0.64 mg/dL (0.52-1.25); GLUCOSE 134 mg/dL (75-110); POTASSIUM 4.5 mmol/L (3.6-5.0); SODIUM 143.5 mmol/L (137-145); TOTAL PROTEIN 8.2 g/dL (6.3-8.2)
[2017-05-31 06:45] LABS: CREATINE KINASE MB 1.46 ng/mL (<4.55)
[2017-05-31] MEDS ORDERED: LORAZEPAM INJ 2 MG/1 ML VIAL IV ONE (06:45)
[2017-05-31 06:47] LABS: TROPONIN I 0.05 ng/mL
[2017-05-31 07:01] LABS: ANISOCYTOSIS 2+; HYPOCHROMASIA 1+; MICROCYTOSIS 3+; POIKILOCYTOSIS 1+; ROULEAUX SLIGHT; TEAR DROP CELLS SLIGHT; TOXIC GRANULATION SLIGHT
[2017-05-31 07:02] LABS: SCHISTOCYTES SLIGHT
[2017-05-31] MEDS ORDERED: ONDANSETRON HCL INJ/PF 4 MG/2 ML SDV IV ONE (07:53)
[2017-05-31] MEDS ORDERED: ALBUTEROL SULFATE 0.083% NEB 2.5 MG/3 ML AMPUL NEB PRN (08:27)
[2017-05-31] MEDS ORDERED: ALBUTEROL SULFATE HFA (90 MCG/PUFF) 200 PUFF/8.5 GM MDI IH PRN (08:27)
[2017-05-31] MEDS ORDERED: METHYLPREDNISOLONE INJ 125 MG/2 ML SDV IV SCH (09:00)
[2017-05-31] MEDS ORDERED: VANCOMYCIN HCL 0 MG in DEXTROSE 5%-WATER 250 ML IV NR (09:00)
[2017-05-31 09:09] LABS: ARTERIAL BLOOD BASE EXCESS -2.7 mmol/L; ARTERIAL BLOOD O2 SATURATION 95.1 % (94-98)
[2017-05-31] MEDS ORDERED: TUBERCULIN,PURIF.PROT.DERIV. 5 TU/0.1 ML TEST 1 ML VIAL ID ONE (10:00)
[2017-05-31] MEDS: LEVOFLOXACIN 500 MG/D5W RTU 500 MG/100 ML RTUPB IV SCH (10:40)
[2017-05-31] MEDS: GUAIFENESIN 600 MG TABLET.SA PO SCH ×2 (10:43→22:11)
[2017-05-31] MEDS: DEXTROSE 5%-1/2 NORMAL SALINE 1,000 ML IV PRN (10:51)
[2017-05-31] MEDS: IPRATROPIUM/ALBUTEROL 0.5-2.5 MG/3 ML AMPUL NEB SCH ×3 (11:51→20:33)
[2017-05-31] MEDS: TIOTROPIUM BROMIDE DPI 5 CAP/KIT (18 MCG/CAP) IH SCH (12:36)
--- NOTE | 2017-05-31 13:41 | RADIOLOGY REPORT (SQ) ---
EXAM DESCRIPTION: CT CHEST WITH COMPLETED DATE/TIME: 05/31/2017 1:01 pm REASON FOR STUDY: eval for lung cancer has had 40lb wt loss in 2 mo COMPARISON: None. TECHNIQUE: CT scan of the chest performed using helical scanning technique with dynamic intravenous contrast injection. Images reviewed with lung, soft tissue and bone windows. Reconstructed coronal and sagittal MPR images reviewed. All images stored on PACS. All CT scanners at this facility use dose modulation, iterative reconstruction, and/or weight based d osing when appropriate to reduce radiation dose to as low as reasonably achievable (ALARA). [facility]: Dose Right [facility]: CareDose [facility]: Dose Right [facility]: Teradose 4D [facility]: [employer] CONTRAST TYPE AND DOSE: contrast/concentration: Isovue 370.00 mg/ml; Total Contrast Delivered: 80.0 ml; Total Saline Delivered: 55.0 ml RENAL FUNCTION: Creatinine 0.7 BUN 11 RADIATION DOSE: Up-to-date CT equipment and radiation dose reduction techniques were employed. CTDIv ol: 8.5 mGy. DLP: 327 mGy-cm. . LIMITATIONS: None. FINDINGS: LUNGS AND PLEURA: No opacities, nodules, masses. No pneumothorax. No effusions. HILAR AND MEDIASTINAL STRUCTURES: There are few nonspecific upper mediastinal nodes. No hilar masses . HEART AND VASCULAR STRUCTURES: No aneurysm or dissection. No central pulmonary emboli. No pericardi al effusion. HARDWARE: None in the chest. UPPER ABDOMEN: No significant findings. Limited exam. THYROID AND OTHER SOFT TISSUES: No masses. No adenopathy. BONES: No significant finding. OTHER: No other significant finding. IMPRESSION: NORMAL CT OF THE CHEST WITH IV CONTRAST. TECHNICAL DOCUMENTATION: JOB ID: [id number] Quality ID # [id number]: Final reports with documentation of one or more dose reduction techniques (e.g., Au tomated exposure control, adjustment of the mA and/or kV according to patient size, use of iterative reconstruction technique) 2010 [employer]- All Rights Reserved
--- NOTE | 2017-05-31 13:51 | RADIOLOGY REPORT (SQ) ---
EXAM DESCRIPTION: CT FACIAL AREA WITHOUT COMPLETED DATE/TIME: 05/31/2017 1:01 pm REASON FOR STUDY: facial ear pain COMPARISON: None. TECHNIQUE: Noncontrasted images through the facial bones and orbits windowed for bone and soft tissu e. Additional coronal and sagittal reconstructed images reviewed. All images stored on PACS. All CT scanners at this facility use dose modulation, iterative reconstruction, and/or weight based d osing when appropriate to reduce radiation dose to as low as reasonably achievable (ALARA). [facility]: Dose Right [facility]: CareDose [facility]: Dose Right [facility]: Teradose 4D [facility]: [employer] RADIATION DOSE: 44.3mGy. LIMITATIONS: None. FINDINGS: FACIAL BONES: No fracture or bone lesion. ORBITS: Intact. No fracture. Symmetric intact globes and retroorbital soft tissues. PARANASAL SINUSES: There is some a moderate amount of fluid in the left maxillary sinus and there is a small amount of fluid in the right maxillary sinus. There are minimal mucoperiosteal changes in th e maxillary sinuses. There is opacification of a few ethmoid air cells. No nasal polyps. Maxillary sinus outlets are patent. SOFT TISSUES: No mass or edema. INFERIOR BRAIN: Limited view. No acute findings. OTHER: The external and internal auditory canals, the structures of the middle ears, and mastoid air cells are normal. IMPRESSION: Mild sinus disease. TECHNICAL DOCUMENTATION: JOB ID: [id number] Quality ID # [id number]: Final reports with documentation of one or more dose reduction techniques (e.g., Au tomated exposure control, adjustment of the mA and/or kV according to patient size, use of iterative reconstruction technique) 2010 [employer]- All Rights Reserved
[2017-05-31] MEDS ORDERED: ACETAMINOPHEN 325 MG TABLET PO PRN (14:01)
[2017-05-31] MEDS: HEPARIN SOD (PORCINE) 5,000 UNIT/ML 1 ML SYRINGE SUBCUT SCH ×2 (14:14→22:12)
[2017-05-31] MEDS: ONDANSETRON HCL INJ/PF 4 MG/2 ML SDV IV SCH ×2 (14:14→22:13)
[2017-05-31] MEDS: METHYLPREDNISOLONE INJ 40 MG/1 ML SDV IV SCH ×2 (14:15→17:22)
[2017-05-31] MEDS: NYSTATIN 500000 UNIT/5 ML UDCUP PO SCH ×3 (14:15→22:11)
[2017-05-31] MEDS: VANCOMYCIN HCL 1,000 MG in DEXTROSE 5%-WATER 250 ML IV SCH ×2 (14:15→22:12)
--- NOTE | 2017-05-31 14:16 | PDOC CONSULTATION ---
Consultation Consult Date: 05/31/17 Attending physician:: VIANNEY MONTENEGRO Consult reason:: resp failure History of Present Illness Admission Date/PCP: 05/31/17 08:46 History of Present Illness: ARIA MCBRIDE is a 47 year old female complains of increasing shortness of breath and cough productive of yellow phlegm that increased over the preceding 5 days to the point where she could not breathe and presented to the emergency room where she was subsequently admitted. She missed to having blood-streaked sputum once or twice but no andres hemoptysis her PPD was negative dates unknown she denies history of chronic lung disease as a child or adolescent she does admit exposure to passive smoke as a child as well as an adult she herself is smoked a half a pack a day for 35 years and smoked up until 1 week prior to admission she is worked in [employer] industry where she exposed large amounts of chemicals. 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 She has 1 cat inside and a lot of chickens and dogs outside. She denies angina-like chest pain sleeps on one pillow no PND occasional nocturnal cough no edema. She admits to snoring restless sleep nocturia 3 to 3-4 times per night unrestful sleep and excessive daytime somnolence. Past Medical History Cardiac Medical History: Reports: Hypertension Pulmonary Medical History: Reports: Chronic Obstructive Pulmonary Disease (COPD) Neurological Medical History: Reports: Migraine, Seizures - hx of, Other - vagus nerve seizures GI Medical History: Reports: Gastroesophageal Reflux Disease Psychiatric Medical History: Reports: Tobacco Dependency Hematology: Reports: Anemia Past Surgical History Past Surgical History: Reports: Orthopedic Surgery - R knee, Tubal Ligation Social History Information Source: Patient, [employer] Lives with: Spouse/Significant other Smoking Status: Current Every Day Smoker Cigarettes Packs Per Day: 1 Number of Years Smokin Last Time Smoked: 1 week ago Passive smoke exposure as: Both Frequency of Alcohol Use: Rare Hx Recreational Drug Use: No Hx Prescription Drug Abuse: No Do you have pets?: Yes Have you had any respiratory illnesses as a child?: No Have you been exposed to any sick contacts recently?: No Have you travelled outside of [place] in the past 12 months?: No - Advance Directive Resuscitation Status: Full Code Family History Family History: CAD, CVA, Hypertension, Malignancy Parental Family History Reviewed: Yes Children Family History Reviewed: Yes Sibling(s) Family History Reviewed.: Yes Medication/Allergy Home Medications: No Home Medications 05/31/17 Allergies/Adverse Reactions: acetaminophen [From Percocet] Allergy (Verified 05/31/17 06:17) aspirin [Aspirin] Allergy (Verified 05/31/17 06:17) citalopram hydrobromide [From Celexa] Allergy (Verified 05/31/17 06:17) cortisone Allergy (Verified 05/31/17 06:17) hydrocortisone [Hydrocortisone] Allergy (Verified 05/31/17 06:17) morphine [Morphine] Allergy (Verified 05/31/17 06:17) NSAIDS (Non-Steroidal Anti-Inflamma [Nsaids] Allergy (Verified 05/31/17 06:17) oxycodone HCl [From Percocet] Allergy (Verified 05/31/17 06:17) pregabalin [From Lyrica] Allergy (Verified 05/31/17 06:17) Sulfa (Sulfonamide Antibiotics) Allergy (Verified 05/31/17 06:17) Review of Systems Constitutional: PRESENT: weight loss - 35 lbs. ABSENT: anorexia, chills, fatigue, fever(s), night sweats Eyes: ABSENT: visual disturbances Ears: ABSENT: hearing changes Nose, Mouth, and Throat: ABSENT: sore throat Cardiovascular: PRESENT: dyspnea on exertion. ABSENT: chest pain, edema, orthropnea, palpitations Respiratory: PRESENT: cough, dyspnea, hemoptysis, sputum Gastrointestinal: PRESENT: heartburn. ABSENT: abdominal pain, bloating, coffee ground emesis, constipation, diarrhea, dysphagia, hematemesis, hematochezia, melena Genitourinary: PRESENT: nocturia. ABSENT: difficulty urinating, dysuria, hematuria Musculoskeletal: PRESENT: back pain Neurological: ABSENT: abnormal movements, abnormal speech, confusion, convulsions, focal weakness, frequent falls, lack of coordination, syncope, tremor(s), vertigo Psychiatric: ABSENT: anxiety, depression, hallucinations, homidical ideation, suicidal ideation Endocrine: ABSENT: cold intolerance, flushing, heat intolerance, menstrual abnormalities, polydipsia, polyphagia, polyuria Hematologic/Lymphatic: ABSENT: easy bleeding, easy bruising Physical Exam Vital Signs: Temp Pulse Resp BP Pulse Ox 97.7 F 26 H 112/74 100 05/31/17 05:41 05/31/17 09:35 05/31/17 07:01 05/31/17 09:35 General appearance: PRESENT: cooperative, disheveled, mild distress, thin, well- developed Head exam: PRESENT: atraumatic, normocephalic Eye exam: PRESENT: conjunctiva pale, EOMI Mouth exam: PRESENT: dry mucosa, neck supple, tongue midline Teeth exam: PRESENT: poor dentation Throat exam: ABSENT: post pharyngeal erythema, tonsillar erythema, tonsillar exudate, tonsillogmegaly Neck exam: ABSENT: carotid bruit, JVD, lymphadenopathy, thyromegaly Respiratory exam: PRESENT: decreased breath sounds, prolonged expiratory phas, retraction, rhonchi, symmetrical, tachypnea, wheezes. ABSENT: accessory muscle use, chest wall tenderness, crackles, rales, stridor Cardiovascular exam: PRESENT: RRR, +S1, +S2 Pulses: PRESENT: normal radial pulses GI/Abdominal exam: PRESENT: normal bowel sounds, soft. ABSENT: distended, guarding, mass, organolmegaly, rebound, tenderness Extremities exam: ABSENT: full ROM Musculoskeletal exam: PRESENT: ambulatory, full ROM Neurological exam: PRESENT: alert, awake Psychiatric exam: PRESENT: normal mood Skin exam: PRESENT: dry, pallor, warm Results Laboratory Results: 05/31/17 08:48 Carbonic Acid 0.94 L HCO3/H2CO3 Ratio 22:1 ABG pH 7.44 ABG pCO2 31.1 L ABG pO2 70.9 L ABG HCO3 20.7 ABG O2 Saturation 95.1 ABG Base Excess -2.7 FiO2 30% Impressions: Chest X-Ray 05/31/17 05:41 IMPRESSION: NO ACUTE RADIOGRAPHIC FINDING IN THE CHEST. Assessment & Plan - Diagnosis (1) COPD exacerbation Is this a current diagnosis for this admission?: Yes Plan: Generic Name Dose Route Start Last Admin Trade Name Freq PRN Reason Stop Dose Admin Methylprednisolone Sodium Succinate 60 mg 05/31/17 10:00 Solu-Medrol Inj/Pf 40 Mg/1 Ml Sdv IV 06/30/17 09:59 Q8A JAIR Ipratropium [place] 2 puff 06/01/17 10:00 Atrovent Hfa Inhalation Aerosol 12.9 Gm Mdi IH 07/01/17 09:59 DAILY JAIR Tiotropium [place] 1 cap 05/31/17 10:00 Spiriva [place]hal[place] 5 Cap/Kit (18 Mcg/Cap) IH 06/30/17 09:59 DAILY JAIR Albuterol 2 puff 05/31/17 08:27 Proair Hfa Inhalation Aerosol 8.5 Gm Mdi IH 06/30/17 08:26 Q4HP PRN Albuterol 2.5 mg 05/31/17 08:27 Ventolin 0.083% Neb 2.5 Mg/3 Ml Ampul NEB 06/30/17 08:26 [id number] PRN Albuterol/Ipratropium 3 ml 05/31/17 12:00 Duoneb 3 Ml Ampul NEB 06/30/17 11:59 [id number] JAIR Guaifenesin 1,200 mg 05/31/17 10:00 Mucinex Sr 600 Mg Tablet.Sa PO 06/30/17 09:59 Q12 JAIR suggest dc spiriva,ipatropium and albuterol mdi until discharge consider adding pulmicort (2) Respiratory distress Is this a current diagnosis for this admission?: Yes Plan: adjust bipap to AVAPS as patient states it is more comfortable; does eosinophillia, suggest overlap syndrome Labs - All tests 24 hr 05/31/17 05/31/17 05/31/17 05:47 05:47 08:48 WBC 9.5 Hgb 10.0 L Hct 32.1 L MCV 62 L Plt Count 419 Seg Neutrophils % 65.3 Lymphocytes % 19.9 Monocytes % 7.7 Eosinophils % 6.3 H ABG pH 7.44 ABG pCO2 31.1 L ABG pO2 70.9 L Sodium 143.5 Potassium 4.5 Chloride 106 Carbon Dioxide 21 L Anion Gap 17 BUN 11 Creatinine 0.64 (3) Tobacco abuse Is this a current diagnosis for this admission?: Yes Plan: transdermal nicotine (4) Sinusitis Is this a current diagnosis for this admission?: Yes Plan: [id number] conside ENT (5) Weight loss Is this a current diagnosis for this admission?: Yes Plan: concerned etiology not certain (6) Daytime hypersomnolence Is this a current diagnosis for this admission?: Yes Plan: schedule sleep study at time of discharge
--- NOTE | 2017-05-31 15:28 | PDOC H&P ---
History of Present Illness Admission Date/PCP: 05/31/17 08:28 Patient complains of: Trouble breathing History of Present Illness: ARIA MCBRIDE is a 47 year old female complains of increasing shortness of breath and cough productive of yellow phlegm that increased over the preceding 5 days to the point where she could not breathe and presented to the emergency room where she was subsequently admitted. Patient states she has been sick for about 3 weeks. She denies fever. Patient has had increased sputum On admission patient had a venous pH is 7.36 venous CO2 46.4 bicarb 25.5 and repeat ABGs approximately 4 hours later after being on BiPAP bionic acid 0.94 bicarb 22.1 pH 7.44 CO2 31.1 PaO2 70.9 on admission her carbon dioxide was 21 she had a elevated troponin of 0.0 5 repeat was 0.373Patient states she currently does not have a manufacturing controller. Not currently on any COPD medications asthma medications. She has had 4 hospitalizations in the last 10 months for shortness of breath requiring BiPAP with acute respiratory failure elevated CO2 levels. Patient is a current smoker. Patient states she feels like she was about to this. She denies any chest pain, edema, hemopytsis, patient states she currently does not have any health insurance Past Medical History Cardiac Medical History: Reports: Hypertension Pulmonary Medical History: Reports: Asthma, Bronchitis, Pneumonia, Respiratory Failure Neurological Medical History: Reports: Migraine, Seizures - hx of, Other - vagus nerve seizures Malignancy Medical History: Reports: None GI Medical History: Reports: Gastroesophageal Reflux Disease Musculoskeltal Medical History: Reports: Arthritis, Fibromyalgia Skin Medical History: Denies: None, Eczema, Psoriasis, Other Psychiatric Medical History: Reports: Depression, General Anxiety Disorder, Tobacco Dependency Hematology: Reports: Anemia Infectious Medical History: Denies: None, Clostridium Difficile, Hepatitis B, Hepatitis C, HIV, Methicillin-Resistant Staph Aureus, Vancomycin-Resistant Enterococci, Other Past Surgical History Past Surgical History: Reports: Orthopedic Surgery - R knee, Tubal Ligation Social History Lives with: Spouse/Significant other Smoking Status: Current Every Day Smoker Cigarettes Packs Per Day: 1 Number of Years Smokin Last Time Smoked: 1 week ago Frequency of Alcohol Use: Rare Hx Recreational Drug Use: No Drugs: None Hx Prescription Drug Abuse: No - Advance Directive Resuscitation Status: Full Code Family History Family History: CAD, CVA, Hypertension, Malignancy Parental Family History Reviewed: No Children Family History Reviewed: NA Sibling(s) Family History Reviewed.: NA Medication/Allergy Home Medications: No Home Medications 05/31/17 Allergies/Adverse Reactions: acetaminophen [From Percocet] Allergy (Verified 05/31/17 06:17) aspirin [Aspirin] Allergy (Verified 05/31/17 06:17) citalopram hydrobromide [From Celexa] Allergy (Verified 05/31/17 06:17) cortisone Allergy (Verified 05/31/17 06:17) hydrocortisone [Hydrocortisone] Allergy (Verified 05/31/17 06:17) morphine [Morphine] Allergy (Verified 05/31/17 06:17) NSAIDS (Non-Steroidal Anti-Inflamma [Nsaids] Allergy (Verified 05/31/17 06:17) oxycodone HCl [From Percocet] Allergy (Verified 05/31/17 06:17) pregabalin [From Lyrica] Allergy (Verified 05/31/17 06:17) Sulfa (Sulfonamide Antibiotics) Allergy (Verified 05/31/17 06:17) Review of Systems Constitutional: ABSENT: chills, fever(s), headache(s), weight gain, weight loss Eyes: ABSENT: visual disturbances Ears: ABSENT: hearing changes Cardiovascular: PRESENT: dyspnea on exertion, orthropnea. ABSENT: chest pain, edema, palpitations Respiratory: PRESENT: as per HPI, cough, dyspnea, sputum, other. ABSENT: hemoptysis Gastrointestinal: PRESENT: dysphagia, heartburn. ABSENT: abdominal pain, constipation, diarrhea, hematemesis, hematochezia, nausea, vomiting Genitourinary: ABSENT: dysuria, hematuria Musculoskeletal: PRESENT: as per HPI. ABSENT: joint swelling Integumentary: PRESENT: as per HPI. ABSENT: rash, wounds Neurological: PRESENT: as per HPI Psychiatric: PRESENT: as per HPI. ABSENT: anxiety, depression, homidical ideation, suicidal ideation Hematologic/Lymphatic: ABSENT: easy bleeding, easy bruising Physical Exam Vital Signs: Temp Pulse Resp BP Pulse Ox 97.7 F 105 H 24 H 115/70 98 05/31/17 05:41 05/31/17 11:50 05/31/17 11:50 05/31/17 09:21 05/31/17 11:50 General appearance: PRESENT: cooperative, disheveled, mild distress, thin Head exam: PRESENT: atraumatic, normocephalic Eye exam: PRESENT: conjunctiva pink, EOMI, PERRLA. ABSENT: scleral icterus Ear exam: PRESENT: normal external ear exam Mouth exam: PRESENT: moist, tongue midline Neck exam: ABSENT: carotid bruit, JVD, lymphadenopathy, thyromegaly Respiratory exam: PRESENT: accessory muscle use, chest wall tenderness, decreased breath sounds, prolonged expiratory phas, rhonchi, tachypnea, wheezes. ABSENT: clear to auscultation daniel, rales, unlabored Cardiovascular exam: PRESENT: RRR. ABSENT: diastolic murmur, rubs, systolic murmur Pulses: PRESENT: normal dorsalis pedis pul Vascular exam: PRESENT: normal capillary refill GI/Abdominal exam: PRESENT: normal bowel sounds, soft. ABSENT: distended, guarding, mass, organolmegaly, rebound, tenderness Rectal exam: PRESENT: deferred Extremities exam: PRESENT: full ROM. ABSENT: calf tenderness, clubbing, pedal edema Neurological exam: PRESENT: alert, awake, oriented to person, oriented to place , oriented to time, oriented to situation, CN II-XII grossly intact. ABSENT: motor sensory deficit Psychiatric exam: PRESENT: appropriate affect, normal mood. ABSENT: homicidal ideation, suicidal ideation Skin exam: PRESENT: dry, intact, warm. ABSENT: cyanosis, rash Results Laboratory Results: 05/31/17 08:48 Carbonic Acid 0.94 L HCO3/H2CO3 Ratio 22:1 ABG pH 7.44 ABG pCO2 31.1 L ABG pO2 70.9 L ABG HCO3 20.7 ABG O2 Saturation 95.1 ABG Base Excess -2.7 FiO2 30% 05/31/17 08:30 Troponin I 0.373 Impressions: Chest CT 05/31/17 00:00 IMPRESSION: NORMAL CT OF THE CHEST WITH IV CONTRAST. Facial Bones CT 05/31/17 00:00 IMPRESSION: Mild sinus disease. Chest X-Ray 05/31/17 05:41 IMPRESSION: NO ACUTE RADIOGRAPHIC FINDING IN THE CHEST. Assessment & Plan - Diagnosis (1) COPD exacerbation Is this a current diagnosis for this admission?: Yes Plan: Patient was started on IV antibiotics, steroids, bronchodilators,Guaifenesin, she did require and will continue to use BiPAP as needed to titrate until patient's comfortable repeat ABGs in 4 hours. Will get blood cultures and monitor her O2 sats closely. Patient refused need of nicotine patch at this time (2) Daytime hypersomnolence Is this a current diagnosis for this admission?: Yes Plan: Encourage patient use BiPAP during the daytime to prevent somnolence (3) Respiratory distress Is this a current diagnosis for this admission?: Yes Plan: Patient was admitted and monitored for COPD exacerbation will go ahead and treat prophylaxis on IV antibiotics since she was very frail and toxic appearing. Consult manufacturing controller appreciate his input (4) Sinusitis Qualifiers: Sinusitis location: frontal Chronicity: chronic Qualified Code(s): J32.1 - Chronic frontal sinusitis Is this a current diagnosis for this admission?: Yes Plan: She is currently on coverage broad-spectrum (5) Tobacco abuse Is this a current diagnosis for this admission?: Yes (6) Weight loss Is this a current diagnosis for this admission?: Yes Plan: May consider some Remeron and or need to get her COPD better managed so that she can gain weight - Inpatient Certification Based on my medical assessment, after consideration of the patient's comorbidities, presenting symptoms, or acuity I expect that the services needed warrant INPATIENT care.: Yes I certify that my determination is in accordance with my understanding of Medicare's requirements for reasonable and necessary INPATIENT services [42 CFR 412.3e].: Yes Medical Necessity: Significant Comorbidiites Make Outpatient Treatment Too Risky , Need Close Monitoring Due to Risk of Patient Decompensation, Need For IV Fluids, Need For Continuous Telemetry Monitoring, Need for Nebulizer Therapy and Monitoring of Response, Need for IV Antibiotics, Risk of Complication if Not Cared For in Hospital, Risk of Diagnosis Which Will Require Inpatient Eval/ Care/Monitoring Post Hospital Care: D/C Activities Assistant Documentation
[2017-05-31] MEDS: BUTALB/ACETAMINOPHEN/CAFFEINE 1 TAB EACH PO PRN (17:22)
--- NOTE | 2017-05-31 21:49 | EKG REPORT ---
SEVERITY:- BORDERLINE ECG - SINUS TACHYCARDIA PROBABLE LEFT ATRIAL ABNORMALITY LOW VOLTAGE WITH RIGHT AXIS DEVIATION : Confirmed by: Kurtis Wynn 31-May-2017 21:47:53
[2017-06-01] MEDS: METHYLPREDNISOLONE INJ 40 MG/1 ML SDV IV SCH ×3 (03:11→17:39)
[2017-06-01] MEDS: BUTALB/ACETAMINOPHEN/CAFFEINE 1 TAB EACH PO PRN ×2 (03:49→21:40)
[2017-06-01] MEDS: DEXTROSE 5%-1/2 NORMAL SALINE 1,000 ML IV PRN (03:50)
[2017-06-01] MEDS: CEFTRIAXONE 1 GM/D5W RTU 1 GM/50 ML RTUPB IV SCH (05:55)
[2017-06-01] MEDS: VANCOMYCIN HCL 1,000 MG in DEXTROSE 5%-WATER 250 ML IV SCH ×3 (05:55→21:34)
[2017-06-01] MEDS: HEPARIN SOD (PORCINE) 5,000 UNIT/ML 1 ML SYRINGE SUBCUT SCH ×3 (05:57→21:33)
[2017-06-01] MEDS: ONDANSETRON HCL INJ/PF 4 MG/2 ML SDV IV SCH ×3 (05:57→21:35)
[2017-06-01 06:31] LABS: ABSOLUTE LYMPHOCYTES (AUTO) 0.8 10^3/uL (0.5-4.7); ABSOLUTE MONOCYTES (AUTO) 0.4 10^3/uL (0.1-1.4); ABSOLUTE NEUT (AUTO) 8.3 10^3/uL (1.7-8.2); BASOPHILS % (AUTO) 0.2 % (0-2); HEMATOCRIT 31.1 % (36.0-47.0); HEMOGLOBIN 9.5 g/dL (12.0-15.5); HGB HCT DIFFERENCE -2.6; MEAN CORPUSCULAR HEMOGLOBIN 19.1 pg (27.0-33.4); MEAN CORPUSCULAR HGB CONC 30.5 g/dL (32.0-36.0); MEAN CORPUSCULAR VOLUME 63 fl (80-97); MONOCYTES % (AUTO) 4.2 % (3-13); RED BLOOD COUNT 4.98 10^6/uL (3.72-5.28); RED CELL DISTRIBUTION WIDTH 20.3 % (11.5-14.0); SEGMENTED NEUTROPHILS % (AUTO) 87.6 % (42-78); WHITE BLOOD COUNT 9.4 10^3/uL (4.0-10.5)
[2017-06-01 06:48] LABS: ARTERIAL BLOOD BASE EXCESS 0.5 mmol/L; ARTERIAL BLOOD O2 SATURATION 60.6 % (94-98)
[2017-06-01 06:50] LABS: ALANINE AMINOTRANSFERASE 35 U/L (9-52); ALBUMIN 4.3 g/dL (3.5-5.0); ALKALINE PHOSPHATASE 99 U/L (38-126); ANION GAP 17 (5-19); ASPARTATE AMINO TRANSFERASE 26 U/L (14-36); BILIRUBIN,DIRECT 0.3 mg/dL (0.0-0.4); BILIRUBIN,TOTAL 0.3 mg/dL (0.2-1.3); BLOOD UREA NITROGEN 9 mg/dL (7-20); CALCIUM 10.4 mg/dL (8.4-10.2); CARBON DIOXIDE 20 mmol/L (22-30); CHLORIDE 107 mmol/L (98-107); CREATINE KINASE 166 U/L (30-135); CREATININE RESULT 0.63 mg/dL (0.52-1.25); GLUCOSE 139 mg/dL (75-110); MAGNESIUM 2.2 mg/dL (1.6-2.3); POTASSIUM 4.9 mmol/L (3.6-5.0); SODIUM 143.9 mmol/L (137-145); TOTAL PROTEIN 7.6 g/dL (6.3-8.2)
[2017-06-01 07:01] LABS: HYPOCHROMASIA 1+
[2017-06-01 07:02] LABS: ANISOCYTOSIS 2+; MICROCYTOSIS 3+; OVALOCYTES 1+; POIKILOCYTOSIS 1+; TEAR DROP CELLS SLIGHT
--- NOTE | 2017-06-01 07:55 | RADIOLOGY REPORT (SQ) ---
EXAM DESCRIPTION: CHEST PA/LAT COMPLETED DATE/TIME: 06/01/2017 7:47 am REASON FOR STUDY: re-eval COMPARISON: Chest CT scan dated 05/31/2017 EXAM PARAMETERS: NUMBER OF VIEWS: two views TECHNIQUE: Digital Frontal and Lateral radiographic views of the chest acquired. RADIATION DOSE: NA LIMITATIONS: none FINDINGS: LUNGS AND PLEURA: No opacities, masses or pneumothorax. No pleural effusion. MEDIASTINUM AND HILAR STRUCTURES: No masses or contour abnormalities. HEART AND VASCULAR STRUCTURES: Heart normal size. No evidence for failure. BONES: No acute findings. HARDWARE: None in the chest. OTHER: No other significant finding. IMPRESSION: NO SIGNIFICANT RADIOGRAPHIC FINDING IN THE CHEST. TECHNICAL DOCUMENTATION: JOB ID: [id number] [employer]- All Rights Reserved
[2017-06-01] MEDS ORDERED: FUROSEMIDE INJ/PF 40 MG/4 ML SDV IV ONE (08:26)
[2017-06-01] MEDS: IPRATROPIUM/ALBUTEROL 0.5-2.5 MG/3 ML AMPUL NEB SCH ×4 (08:49→19:49)
[2017-06-01 09:09] LABS: ARTERIAL BLOOD BASE EXCESS -1.3 mmol/L; ARTERIAL BLOOD O2 SATURATION 96.5 % (94-98)
[2017-06-01] MEDS: NYSTATIN 500000 UNIT/5 ML UDCUP PO SCH ×4 (09:23→21:34)
[2017-06-01] MEDS: TIOTROPIUM BROMIDE DPI 5 CAP/KIT (18 MCG/CAP) IH SCH (09:23)
[2017-06-01] MEDS: GUAIFENESIN 600 MG TABLET.SA PO SCH ×2 (09:23→21:33)
[2017-06-01] MEDS: LEVOFLOXACIN 500 MG/D5W RTU 500 MG/100 ML RTUPB IV SCH (09:25)
[2017-06-01] MEDS: IPRATROPIUM BROMIDE HFA 17 MCG/PUFF 200 PUFF/12.9 GM MDI IH SCH (09:40)
--- NOTE | 2017-06-01 11:46 | PDOC PROGRESS REPORT ---
Subjective Progress Note for:: 06/01/17 - Acute on chronic respiratory failure Subjective:: Feel better but I had a hard time sleeping Physical Exam Vital Signs: Temp Pulse Resp BP Pulse Ox 97.8 F 93 28 H 103/55 L 99 06/01/17 04:39 06/01/17 07:00 06/01/17 04:39 06/01/17 04:39 06/01/17 04:39 Pulse Oximeter Continuous Start: 05/31/17 12: 44 Freq: RTQ4 Status: Active Document 06/01/17 03:58 EAL (Rec: 06/01/17 06:16 [email or web address] [email or web address]) Pulse Oximetry Assessment Oxygen Saturation (92-100) 98 Oxygen Flow Rate (L/min) 2 Oxygen Delivery Method Nasal Cannula Fraction of Inspired Oxygen (FIO2) 28 Equipment Usage Equipment in Use Continuous SpO2 Machine # 11 Intake & Output 05/31/17 06/01/17 06/02/17 06:59 06:59 06:59 Intake Total 2312 Balance 2312 Weight 75.1 kg General appearance: PRESENT: cooperative, disheveled, mild distress, thin, well- developed Head exam: PRESENT: atraumatic, normocephalic Eye exam: PRESENT: conjunctiva pale, EOMI Mouth exam: PRESENT: dry mucosa, neck supple, tongue midline Neck exam: ABSENT: carotid bruit, JVD, lymphadenopathy, thyromegaly Respiratory exam: PRESENT: decreased breath sounds, prolonged expiratory phas, rhonchi, symmetrical, unlabored, wheezes. ABSENT: accessory muscle use, chest wall tenderness, clear to auscultation daniel, crackles, rales, retraction, stridor , tachypnea Cardiovascular exam: PRESENT: RRR, +S1, +S2 Pulses: PRESENT: normal radial pulses GI/Abdominal exam: PRESENT: normal bowel sounds, soft. ABSENT: distended, guarding, mass, organolmegaly, rebound, tenderness Extremities exam: ABSENT: calf tenderness, clubbing Musculoskeletal exam: ABSENT: deformity, dislocation, tenderness Neurological exam: ABSENT: alert, awake Psychiatric exam: PRESENT: normal mood Skin exam: PRESENT: dry, pallor, warm Results Laboratory Results: 06/01/17 05:29 06/01/17 05:29 06/01/17 06/01/17 06/01/17 05:29 05:29 06:30 WBC 9.4 RBC 4.98 Hgb 9.5 L Hct 31.1 L MCV 63 L MCH 19.1 L MCHC 30.5 L RDW 20.3 H Plt Count 454 H Seg Neutrophils % 87.6 H Lymphocytes % 8.0 L Monocytes % 4.2 Eosinophils % 0.0 Basophils % 0.2 Absolute Neutrophils 8.3 H Absolute Lymphocytes 0.8 Absolute Monocytes 0.4 Absolute Eosinophils 0.0 Absolute Basophils 0.0 Carbonic Acid 1.12 HCO3/H2CO3 Ratio 21:1 ABG pH 7.44 ABG pCO2 37.3 ABG pO2 30.4 L* ABG HCO3 24.5 ABG O2 Saturation 60.6 L ABG Base Excess 0.5 FiO2 32% Sodium 143.9 Potassium 4.9 Chloride 107 Carbon Dioxide 20 L Anion Gap 17 BUN 9 Creatinine 0.63 Est GFR ( Amer) > 60 Est GFR (Non-Af Amer) > 60 Glucose 139 H Lactic Acid Calcium 10.4 H Magnesium 2.2 Total Bilirubin 0.3 AST 26 ALT 35 Alkaline Phosphatase 99 Total Protein 7.6 Albumin 4.3 06/01/17 06/01/17 06/01/17 08:45 09:57 09:57 WBC RBC Hgb Hct MCV MCH MCHC RDW Plt Count Seg Neutrophils % Lymphocytes % Monocytes % Eosinophils % Basophils % Absolute Neutrophils Absolute Lymphocytes Absolute Monocytes Absolute Eosinophils Absolute Basophils Carbonic Acid 0.88 L HCO3/H2CO3 Ratio 24:1 ABG pH 7.48 H ABG pCO2 29.4 L ABG pO2 77.8 L ABG HCO3 21.4 ABG O2 Saturation 96.5 ABG Base Excess -1.3 FiO2 3L Sodium Potassium Chloride Carbon Dioxide Anion Gap BUN Creatinine Est GFR ( Amer) Est GFR (Non-Af Amer) Glucose Lactic Acid Cancelled 3.2 H Calcium Magnesium Total Bilirubin AST ALT Alkaline Phosphatase Total Protein Albumin 05/31/17 06/01/17 06/01/17 08:30 05:29 05:29 Creatine Kinase 166 H Troponin I 0.373 NT-Pro-B Natriuret Pep 2150 H Impressions: Chest CT 05/31/17 00:00 IMPRESSION: NORMAL CT OF THE CHEST WITH IV CONTRAST. Facial Bones CT 05/31/17 00:00 IMPRESSION: Mild sinus disease. Chest X-Ray 06/01/17 08:38 IMPRESSION: NO SIGNIFICANT RADIOGRAPHIC FINDING IN THE CHEST. Assessment & Plan - Diagnosis (1) COPD exacerbation Is this a current diagnosis for this admission?: Yes Plan: Labs- All tests 24 hr 06/01/17 08:45 ABG pH 7.48 H ABG pCO2 29.4 L ABG pO2 77.8 L ABG O2 Saturation 96.5 FiO2 3L Ajusted AVAPS to an inspiratory pressure max of 16 inspiratory pressure minimum of 6 and FiO2 24 and I time 0.8 (2) Respiratory distress Is this a current diagnosis for this admission?: Yes Plan: less distressed today continue AVAPS 05/31/17 05/31/17 05/31/17 05:47 05:47 08:48 WBC 9.5 Hgb 10.0 L Hct 32.1 L MCV 62 L Plt Count 419 Seg Neutrophils % 65.3 Lymphocytes % 19.9 Monocytes % 7.7 Eosinophils % 6.3 H ABG pH 7.44 ABG pCO2 31.1 L ABG pO2 70.9 L Sodium 143.5 Potassium 4.5 Chloride 106 Carbon Dioxide 21 L Anion Gap 17 BUN 11 Creatinine 0.64 (3) Tobacco abuse Is this a current diagnosis for this admission?: Yes Plan: transdermal nicotine (4) Sinusitis Qualifiers: Sinusitis location: frontal Chronicity: chronic Qualified Code(s): J32.1 - Chronic frontal sinusitis Is this a current diagnosis for this admission?: Yes (5) Weight loss Is this a current diagnosis for this admission?: Yes (6) Daytime hypersomnolence Is this a current diagnosis for this admission?: Yes Plan: schedule sleep study at time of discharge
[2017-06-01] MEDS: HYDROCODONE/ACETAMINOPHEN 5-325 MG TABLET PO PRN ×2 (12:01→19:10)
[2017-06-01 14:21] LABS: CREATININE RESULT 0.79 mg/dL (0.52-1.25)
--- NOTE | 2017-06-01 16:35 | XCELERA REPORT ---
[address] [address] Transthoracic Echocardiogram Report Name: ARIA MCBRIDE Age: 47 yrs Gender: Female : 1970 Patient Status: Inpatient Patient Location: [address] [place] [address] Study Date: 06/01/2017 10:26 AM Height: 69 in Weight: 165 lb BSA: 1.9 m2 Procedure: A two-dimensional transthoracic echocardiogram with color flow and Doppler was performed. Study Quality: Fair. Reason For Study: CHF History: CHF. Ordering Physician: MARIA ELENA TEAGUE Performed By: Charla Bailey Interpretation Summary The left ventricle is normal in size. There is normal left ventricular wall thickness. LV EF is 55% TO 60% Left ventricular systolic function is normal. Doppler measurements suggest normal left ventricular diastolic function The left ventricular wall motion is normal. There is no thrombus. The right atrium is normal. The left atrial size is normal. The interatrial septum is intact with no evidence for an atrial septal defect. There is no evidence of mitral valve prolapse. There is no mitral regurgitation noted. There is no aortic valve stenosis There is no LVOT obstruction. No aortic regurgitation is present. There is no tricuspid stenosis. No tricuspid regurgitation. Uable to calculate RVSP due to insfficient TR jet. There is no pericardial effusion. MMode/2D Measurements & Calculations RVDd: 1.4 cm LVIDd: 4.6 cm FS: 27.5 % Ao root diam: 2.7 cm IVSd: 0.99 cm LVIDs: 3.3 cm EDV(Teich): 97.7 ml LVPWd: 1.0 cm ESV(Teich): 45.5 ml Ao root area: 5.9 cm2 EF(Teich): 53.4 % LA dimension: 3.0 cm Doppler Measurements & Calculations MV E max zander: MV P1/2t max zander: Ao V2 max: LV V1 max P.7 cm/sec 71.7 cm/sec 123.7 cm/sec 4.9 mmHg MV A max zander: MV P1/2t: 81.9 msec Ao max PG: LV V1 max: 55.5 cm/sec 6.1 mmHg 111.1 cm/sec MV E/A: 1.3 MVA(P1/2t): 2.7 cm2 MV dec slope: 256.5 cm/sec2 MV dec time: 0.27 sec PA V2 max: 99.7 cm/sec PA max P.0 mmHg Left Ventricle The left ventricle is normal in size. There is normal left ventricular wall thickness. LV EF is 55% TO 60%. Left ventricular systolic function is normal. Doppler measurements suggest normal left ventricular diastolic function. The left ventricular wall motion is normal. There is no thrombus. There is no ventricular septal defect visualized. Right Ventricle The right ventricle is normal in size and function. Atria The right atrium is normal. The left atrial size is normal. The interatrial septum is intact with no evidence for an atrial septal defect. Mitral Valve There is no evidence of mitral valve prolapse. There is no vegetation seen on the mitral valve. There is no mitral valve stenosis. There is no mitral regurgitation noted. Aortic Valve There is no aortic valve stenosis. There is no LVOT obstruction. No aortic regurgitation is present. Tricuspid Valve There is no tricuspid stenosis. No tricuspid regurgitation. Uable to calculate RVSP due to insfficient TR jet. Pulmonic Valve There is no pulmonic valvular stenosis. There is no pulmonic valvular regurgitation. Great Vessels The aortic root is normal size. Effusions There is no pericardial effusion. : MARIA ELENA TEAGUE > Ann-Marie Brand
[2017-06-02] MEDS: METHYLPREDNISOLONE INJ 40 MG/1 ML SDV IV SCH ×3 (03:48→18:22)
[2017-06-02] MEDS: HYDROCODONE/ACETAMINOPHEN 5-325 MG TABLET PO PRN ×3 (03:52→22:03)
[2017-06-02] MEDS: ONDANSETRON HCL INJ/PF 4 MG/2 ML SDV IV SCH ×3 (05:40→21:59)
[2017-06-02] MEDS: HEPARIN SOD (PORCINE) 5,000 UNIT/ML 1 ML SYRINGE SUBCUT SCH ×3 (05:54→21:48)
[2017-06-02] MEDS: CEFTRIAXONE 1 GM/D5W RTU 1 GM/50 ML RTUPB IV SCH (05:54)
[2017-06-02] MEDS: VANCOMYCIN HCL 1,000 MG in DEXTROSE 5%-WATER 250 ML IV SCH ×3 (05:54→21:47)
[2017-06-02 06:13] LABS: ARTERIAL BLOOD BASE EXCESS -1.6 mmol/L; ARTERIAL BLOOD O2 SATURATION 97.1 % (94-98)
[2017-06-02 06:54] LABS: ABSOLUTE LYMPHOCYTES (AUTO) 0.8 10^3/uL (0.5-4.7); ABSOLUTE MONOCYTES (AUTO) 0.4 10^3/uL (0.1-1.4); ABSOLUTE NEUT (AUTO) 7.3 10^3/uL (1.7-8.2); HEMATOCRIT 30.5 % (36.0-47.0); HEMOGLOBIN 9.6 g/dL (12.0-15.5); HGB HCT DIFFERENCE -1.7; LYMPHOCYTES % (AUTO) 9.8 % (13-45); MEAN CORPUSCULAR HEMOGLOBIN 19.6 pg (27.0-33.4); MEAN CORPUSCULAR HGB CONC 31.6 g/dL (32.0-36.0); MEAN CORPUSCULAR VOLUME 62 fl (80-97); MONOCYTES % (AUTO) 4.5 % (3-13); RED BLOOD COUNT 4.93 10^6/uL (3.72-5.28); RED CELL DISTRIBUTION WIDTH 19.1 % (11.5-14.0); SEGMENTED NEUTROPHILS % (AUTO) 85.7 % (42-78); WHITE BLOOD COUNT 8.5 10^3/uL (4.0-10.5)
[2017-06-02 07:22] LABS: ANISOCYTOSIS 2+; HYPOCHROMASIA 2+; OVALOCYTES 1+; POIKILOCYTOSIS 1+; TEAR DROP CELLS 1+
[2017-06-02 07:23] LABS: MICROCYTOSIS 3+
[2017-06-02 07:31] LABS: ALANINE AMINOTRANSFERASE 39 U/L (9-52); ALBUMIN 4.5 g/dL (3.5-5.0); ALKALINE PHOSPHATASE 84 U/L (38-126); ANION GAP 17 (5-19); ASPARTATE AMINO TRANSFERASE 25 U/L (14-36); BILIRUBIN,DIRECT 0.3 mg/dL (0.0-0.4); BILIRUBIN,TOTAL 0.3 mg/dL (0.2-1.3); BLOOD UREA NITROGEN 17 mg/dL (7-20); CALCIUM 10.1 mg/dL (8.4-10.2); CARBON DIOXIDE 22 mmol/L (22-30); CHLORIDE 103 mmol/L (98-107); CREATININE RESULT 0.77 mg/dL (0.52-1.25); GLUCOSE 115 mg/dL (75-110); POTASSIUM 4.4 mmol/L (3.6-5.0); SODIUM 141.6 mmol/L (137-145); TOTAL PROTEIN 7.7 g/dL (6.3-8.2)
[2017-06-02] MEDS: BUTALB/ACETAMINOPHEN/CAFFEINE 1 TAB EACH PO PRN ×2 (07:42→19:53)
[2017-06-02] MEDS: IPRATROPIUM/ALBUTEROL 0.5-2.5 MG/3 ML AMPUL NEB SCH ×4 (08:45→20:26)
[2017-06-02] MEDS: LEVOFLOXACIN 500 MG/D5W RTU 500 MG/100 ML RTUPB IV SCH (10:41)
[2017-06-02] MEDS: GUAIFENESIN 600 MG TABLET.SA PO SCH ×2 (10:41→21:46)
[2017-06-02] MEDS: NYSTATIN 500000 UNIT/5 ML UDCUP PO SCH ×4 (10:42→21:47)
[2017-06-02] MEDS: IPRATROPIUM BROMIDE HFA 17 MCG/PUFF 200 PUFF/12.9 GM MDI IH SCH (10:42)
[2017-06-02] MEDS: TIOTROPIUM BROMIDE DPI 5 CAP/KIT (18 MCG/CAP) IH SCH (10:43)
--- NOTE | 2017-06-02 11:45 | EKG REPORT ---
SEVERITY:- ABNORMAL ECG - SINUS RHYTHM NONSPECIFIC T ABNORMALITIES, LATERAL LEADS BORDERLINE PROLONGED QT INTERVAL : Confirmed by: Kurtis Wynn 02-Jun-2017 11:45:08
--- NOTE | 2017-06-02 13:18 | PDOC PROGRESS REPORT ---
Subjective Subjective:: Patient appears to be a little better today. States she is responding well to antibiotics. White blood count improved, she did have an elevated BNP of 2150 yesterday so I have given her some Lasix and held her IV fluids. Physical Exam Vital Signs: Temp Pulse Resp BP Pulse Ox 98.3 F 95 16 130/71 H 94 06/02/17 03:52 06/02/17 12:24 06/02/17 12:24 06/02/17 03:52 06/02/17 12:24 Pulse Oximeter Continuous Start: 05/31/17 12: 44 Freq: RTQ4 Status: Active Document 06/02/17 12:24 LDA (Rec: 06/02/17 12:34 LDA [email or web address]) Pulse Oximetry Assessment Oxygen Saturation (92-100) 93 Oxygen Flow Rate (L/min) 3 Oxygen Delivery Method Nasal Cannula Equipment Usage Equipment in Use Continuous SpO2 Machine # 11 Intake & Output 06/01/17 06/02/17 06/03/17 06:59 06:59 05:59 Intake Total 2312 2375 Balance 2312 2375 Weight 75.1 kg 75 kg General appearance: PRESENT: no acute distress, well-developed, well-nourished Head exam: PRESENT: atraumatic, normocephalic Eye exam: PRESENT: conjunctiva pink, EOMI, PERRLA. ABSENT: scleral icterus Ear exam: PRESENT: normal external ear exam Mouth exam: PRESENT: moist, tongue midline Neck exam: ABSENT: carotid bruit, JVD, lymphadenopathy, thyromegaly Respiratory exam: PRESENT: rhonchi, unlabored, wheezes. ABSENT: rales Cardiovascular exam: PRESENT: RRR. ABSENT: diastolic murmur, rubs, systolic murmur Pulses: PRESENT: normal dorsalis pedis pul Vascular exam: PRESENT: normal capillary refill GI/Abdominal exam: PRESENT: normal bowel sounds, soft. ABSENT: distended, guarding, mass, organolmegaly, rebound, tenderness Rectal exam: PRESENT: deferred Extremities exam: PRESENT: full ROM. ABSENT: calf tenderness, clubbing, pedal edema Musculoskeletal exam: PRESENT: ambulatory Neurological exam: PRESENT: alert, awake, oriented to person, oriented to place , oriented to time, oriented to situation, CN II-XII grossly intact. ABSENT: motor sensory deficit Psychiatric exam: PRESENT: appropriate affect, normal mood. ABSENT: homicidal ideation, suicidal ideation Skin exam: PRESENT: dry, intact, warm. ABSENT: cyanosis, rash Results Laboratory Results: 06/02/17 06:23 06/02/17 06:23 06/01/17 06/01/17 06/02/17 13:45 14:33 05:58 WBC RBC Hgb Hct MCV MCH MCHC RDW Plt Count Seg Neutrophils % Lymphocytes % Monocytes % Eosinophils % Basophils % Absolute Neutrophils Absolute Lymphocytes Absolute Monocytes Absolute Eosinophils Absolute Basophils Carbonic Acid 0.87 L HCO3/H2CO3 Ratio 24:1 ABG pH 7.48 H ABG pCO2 28.9 L ABG pO2 84.9 ABG HCO3 21.1 ABG O2 Saturation 97.1 ABG Base Excess -1.6 FiO2 28% Sodium Potassium Chloride Carbon Dioxide Anion Gap BUN Creatinine 0.79 Est GFR ( Amer) > 60 Est GFR (Non-Af Amer) > 60 Glucose Lactic Acid 2.3 H Calcium Total Bilirubin AST ALT Alkaline Phosphatase Total Protein Albumin 06/02/17 06/02/17 06:23 06:23 WBC 8.5 RBC 4.93 Hgb 9.6 L Hct 30.5 L MCV 62 L MCH 19.6 L MCHC 31.6 L RDW 19.1 H Plt Count 437 Seg Neutrophils % 85.7 H Lymphocytes % 9.8 L Monocytes % 4.5 Eosinophils % 0.0 Basophils % 0.0 Absolute Neutrophils 7.3 Absolute Lymphocytes 0.8 Absolute Monocytes 0.4 Absolute Eosinophils 0.0 Absolute Basophils 0.0 Carbonic Acid HCO3/H2CO3 Ratio ABG pH ABG pCO2 ABG pO2 ABG HCO3 ABG O2 Saturation ABG Base Excess FiO2 Sodium 141.6 Potassium 4.4 Chloride 103 Carbon Dioxide 22 Anion Gap 17 BUN 17 Creatinine 0.77 Est GFR ( Amer) > 60 Est GFR (Non-Af Amer) > 60 Glucose 115 H Lactic Acid Calcium 10.1 Total Bilirubin 0.3 AST 25 ALT 39 Alkaline Phosphatase 84 Total Protein 7.7 Albumin 4.5 05/31/17 06/01/17 06/01/17 08:30 05:29 05:29 Creatine Kinase 166 H Troponin I 0.373 NT-Pro-B Natriuret Pep 2150 H Impressions: Chest CT 05/31/17 00:00 IMPRESSION: NORMAL CT OF THE CHEST WITH IV CONTRAST. Facial Bones CT 05/31/17 00:00 IMPRESSION: Mild sinus disease. Chest X-Ray 06/01/17 08:38 IMPRESSION: NO SIGNIFICANT RADIOGRAPHIC FINDING IN THE CHEST. Assessment & Plan - Diagnosis (1) Acute respiratory failure Qualifiers: Respiratory failure complication: hypoxia and hypercapnia Qualified Code(s) : J96.01 - Acute respiratory failure with hypoxia; J96.02 - Acute respiratory failure with hypercapnia; J96.02 - Acute respiratory failure with hypercapnia; J96.02 - Acute respiratory failure with hypercapnia Is this a current diagnosis for this admission?: Yes Plan: Patient came in with acute respiratory failure. She was placed on BiPAP. Was suspected that she may end up on the ventilator with she greatly improved her O2 sats, and hypercarbia with nebulizers, bronchodilators, and antibiotics. Continue to monitor cultures (2) COPD exacerbation Is this a current diagnosis for this admission?: Yes Plan: Patient was started on IV antibiotics, steroids, bronchodilators,Guaifenesin, she did require and will continue to use BiPAP as needed to titrate until patient's comfortable repeat ABGs in 4 hours. Will get blood cultures and monitor her O2 sats closely. Patient refused need of nicotine patch at this time CT chest negative for mass. able to wean down on her BiPAP. Patient's on nasal cannula while sitting up eating breakfast. She had elevated BNP so I have stopped her IV fluids and will give her a dose of Lasix today Past social work/project planner to assist patient in home medication she will probably need to go home on some COPD meds. (3) Daytime hypersomnolence Is this a current diagnosis for this admission?: Yes (4) Respiratory distress Is this a current diagnosis for this admission?: Yes Plan: Patient was admitted and monitored for COPD exacerbation will go ahead and treat prophylaxis on IV antibiotics since she was very frail and toxic appearing. Consult pilot plant operator helper appreciate his input. Patient slowly improving physically (5) Sinusitis Qualifiers: Sinusitis location: frontal Chronicity: chronic Qualified Code(s): J32.1 - Chronic frontal sinusitis Is this a current diagnosis for this admission?: Yes (6) Tobacco abuse Is this a current diagnosis for this admission?: Yes (7) Weight loss Is this a current diagnosis for this admission?: Yes
[2017-06-03] MEDS: METHYLPREDNISOLONE INJ 40 MG/1 ML SDV IV SCH ×3 (01:07→17:48)
[2017-06-03] MEDS: BUTALB/ACETAMINOPHEN/CAFFEINE 1 TAB EACH PO PRN ×2 (01:22→17:48)
[2017-06-03] MEDS: HYDROCODONE/ACETAMINOPHEN 5-325 MG TABLET PO PRN ×2 (05:39→14:01)
[2017-06-03] MEDS: HEPARIN SOD (PORCINE) 5,000 UNIT/ML 1 ML SYRINGE SUBCUT SCH ×3 (05:46→21:54)
[2017-06-03] MEDS: CEFTRIAXONE 1 GM/D5W RTU 1 GM/50 ML RTUPB IV SCH (05:46)
[2017-06-03] MEDS: ONDANSETRON HCL INJ/PF 4 MG/2 ML SDV IV SCH ×3 (05:48→21:54)
[2017-06-03 06:05] LABS: ABSOLUTE MONOCYTES (AUTO) 0.3 10^3/uL (0.1-1.4); ABSOLUTE NEUT (AUTO) 8.4 10^3/uL (1.7-8.2); BASOPHILS % (AUTO) 0.1 % (0-2); HEMATOCRIT 29.7 % (36.0-47.0); HEMOGLOBIN 9.4 g/dL (12.0-15.5); HGB HCT DIFFERENCE -1.5; LYMPHOCYTES % (AUTO) 10.4 % (13-45); MEAN CORPUSCULAR HEMOGLOBIN 19.4 pg (27.0-33.4); MEAN CORPUSCULAR HGB CONC 31.6 g/dL (32.0-36.0); MEAN CORPUSCULAR VOLUME 62 fl (80-97); MONOCYTES % (AUTO) 2.6 % (3-13); RED BLOOD COUNT 4.83 10^6/uL (3.72-5.28); RED CELL DISTRIBUTION WIDTH 19.3 % (11.5-14.0); SEGMENTED NEUTROPHILS % (AUTO) 86.9 % (42-78); WHITE BLOOD COUNT 9.7 10^3/uL (4.0-10.5)
[2017-06-03 06:23] LABS: ALANINE AMINOTRANSFERASE 39 U/L (9-52); ALBUMIN 4.2 g/dL (3.5-5.0); ALKALINE PHOSPHATASE 72 U/L (38-126); ANION GAP 15 (5-19); ASPARTATE AMINO TRANSFERASE 18 U/L (14-36); BILIRUBIN,DIRECT 0.2 mg/dL (0.0-0.4); BILIRUBIN,TOTAL 0.3 mg/dL (0.2-1.3); BLOOD UREA NITROGEN 16 mg/dL (7-20); CALCIUM 9.8 mg/dL (8.4-10.2); CARBON DIOXIDE 22 mmol/L (22-30); CHLORIDE 105 mmol/L (98-107); CREATININE RESULT 0.74 mg/dL (0.52-1.25); GLUCOSE 114 mg/dL (75-110); POTASSIUM 4.5 mmol/L (3.6-5.0); SODIUM 141.6 mmol/L (137-145); TOTAL PROTEIN 7.4 g/dL (6.3-8.2)
[2017-06-03] MEDS: VANCOMYCIN HCL 1,000 MG in DEXTROSE 5%-WATER 250 ML IV SCH ×3 (06:47→21:54)
[2017-06-03 07:00] LABS: ANISOCYTOSIS 2+; HYPOCHROMASIA 2+; MICROCYTOSIS 3+; POIKILOCYTOSIS 1+; POLYCHROMASIA SLIGHT
[2017-06-03 07:01] LABS: TARGET CELLS SLIGHT; TEAR DROP CELLS 1+
[2017-06-03] MEDS: IPRATROPIUM/ALBUTEROL 0.5-2.5 MG/3 ML AMPUL NEB SCH ×4 (08:35→19:58)
[2017-06-03] MEDS: GUAIFENESIN 600 MG TABLET.SA PO SCH ×2 (10:58→21:53)
[2017-06-03] MEDS: NYSTATIN 500000 UNIT/5 ML UDCUP PO SCH ×4 (10:58→21:53)
[2017-06-03] MEDS: IPRATROPIUM BROMIDE HFA 17 MCG/PUFF 200 PUFF/12.9 GM MDI IH SCH (10:59)
[2017-06-03] MEDS: TIOTROPIUM BROMIDE DPI 5 CAP/KIT (18 MCG/CAP) IH SCH (10:59)
[2017-06-03] MEDS: LEVOFLOXACIN 500 MG/D5W RTU 500 MG/100 ML RTUPB IV SCH (10:59)
[2017-06-03] MEDS ORDERED: BENZONATATE 100 MG CAPSULE PO ONE (12:00)
[2017-06-03] MEDS ORDERED: CIPROFLOXACIN-HC OTIC SUSP 10 ML AD ONE (13:00)
[2017-06-03] MEDS ORDERED: LORATADINE/PSEUDOEPHEDRINE SUL 10-240 MG TAB.SR.24H PO ONE (13:00)
[2017-06-03] MEDS: GUAIFENESIN/CODEINE PHOS 100-10 MG/ 5 ML UDC PO PRN ×2 (14:00→20:03)
--- NOTE | 2017-06-03 17:36 | PDOC PROGRESS REPORT ---
Subjective Progress Note for:: 06/03/17 Subjective:: Patient appears to be a little better today. States she is responding well to antibiotics. White blood count improved, she did have an elevated BNP of 2150 yesterday so I have given her some Lasix and held her IV fluids. Physical Exam Vital Signs: Temp Pulse Resp BP Pulse Ox 98.1 F 95 16 144/65 H 92 06/02/17 23:28 06/03/17 16:10 06/03/17 16:10 06/02/17 23:28 06/03/17 16:10 Pulse Oximeter Continuous Start: 05/31/17 12: 44 Freq: RTQ4 Status: Active Document 06/03/17 16:10 LDA (Rec: 06/03/17 16:35 LDA [email or web address]) Pulse Oximetry Assessment Oxygen Saturation (92-100) 92 Oxygen Delivery Method Room Air Fraction of Inspired Oxygen (FIO2) 21 Equipment Usage Equipment in Use Continuous SpO2 Machine # 11 Intake & Output 06/02/17 06/03/17 06/04/17 07:59 06:59 06:59 Intake Total Balance Weight General appearance: PRESENT: no acute distress, well-developed, well-nourished Head exam: PRESENT: atraumatic, normocephalic Eye exam: PRESENT: conjunctiva pink, EOMI, PERRLA. ABSENT: scleral icterus Ear exam: PRESENT: normal external ear exam Mouth exam: PRESENT: moist, tongue midline Neck exam: ABSENT: carotid bruit, JVD, lymphadenopathy, thyromegaly Respiratory exam: PRESENT: accessory muscle use, clear to auscultation daniel, rhonchi, tachypnea, wheezes. ABSENT: rales Cardiovascular exam: PRESENT: RRR. ABSENT: diastolic murmur, rubs, systolic murmur Pulses: PRESENT: normal dorsalis pedis pul Vascular exam: PRESENT: normal capillary refill GI/Abdominal exam: PRESENT: normal bowel sounds, soft. ABSENT: distended, guarding, mass, organolmegaly, rebound, tenderness Rectal exam: PRESENT: deferred Extremities exam: PRESENT: full ROM. ABSENT: calf tenderness, clubbing, pedal edema Neurological exam: PRESENT: alert, awake, oriented to person, oriented to place , oriented to time, oriented to situation, CN II-XII grossly intact. ABSENT: motor sensory deficit Psychiatric exam: PRESENT: appropriate affect, normal mood. ABSENT: homicidal ideation, suicidal ideation Skin exam: PRESENT: dry, intact, warm. ABSENT: cyanosis, rash Results Laboratory Results: 06/03/17 05:20 06/03/17 05:20 06/03/17 06/03/17 05:20 05:20 WBC 9.7 RBC 4.83 Hgb 9.4 L Hct 29.7 L MCV 62 L MCH 19.4 L MCHC 31.6 L RDW 19.3 H Plt Count 427 Seg Neutrophils % 86.9 H Lymphocytes % 10.4 L Monocytes % 2.6 L Eosinophils % 0.0 Basophils % 0.1 Absolute Neutrophils 8.4 H Absolute Lymphocytes 1.0 Absolute Monocytes 0.3 Absolute Eosinophils 0.0 Absolute Basophils 0.0 Sodium 141.6 Potassium 4.5 Chloride 105 Carbon Dioxide 22 Anion Gap 15 BUN 16 Creatinine 0.74 Est GFR ( Amer) > 60 Est GFR (Non-Af Amer) > 60 Glucose 114 H Calcium 9.8 Total Bilirubin 0.3 AST 18 ALT 39 Alkaline Phosphatase 72 Total Protein 7.4 Albumin 4.2 05/31/17 06/01/17 06/01/17 08:30 05:29 05:29 Creatine Kinase 166 H Troponin I 0.373 NT-Pro-B Natriuret Pep 2150 H Impressions: Chest CT 05/31/17 00:00 IMPRESSION: NORMAL CT OF THE CHEST WITH IV CONTRAST. Facial Bones CT 05/31/17 00:00 IMPRESSION: Mild sinus disease. Chest X-Ray 06/01/17 08:38 IMPRESSION: NO SIGNIFICANT RADIOGRAPHIC FINDING IN THE CHEST. Assessment & Plan - Diagnosis (1) COPD exacerbation Is this a current diagnosis for this admission?: Yes Plan: Patient was started on IV antibiotics, steroids, bronchodilators,Guaifenesin, she did require and will continue to use BiPAP as needed to titrate until patient's comfortable repeat ABGs in 4 hours. Will get blood cultures and monitor her O2 sats closely. Patient refused need of nicotine patch at this time CT chest negative for mass. able to wean down on her BiPAP. Patient's on nasal cannula while sitting up eating breakfast. She had elevated BNP so I have stopped her IV fluids and will give her a dose of Lasix today Past social work/systems planner to assist patient in home medication she will probably need to go home on some COPD meds. 06/03/17 continue nebulizer treatment and BiPAP as needed. (2) Acute respiratory failure Qualifiers: Respiratory failure complication: hypoxia and hypercapnia Qualified Code(s) : J96.01 - Acute respiratory failure with hypoxia; J96.02 - Acute respiratory failure with hypercapnia; J96.02 - Acute respiratory failure with hypercapnia; J96.02 - Acute respiratory failure with hypercapnia Is this a current diagnosis for this admission?: Yes Plan: Patient came in with acute respiratory failure. She was placed on BiPAP. Was suspected that she may end up on the ventilator with she greatly improved her O2 sats, and hypercarbia with nebulizers, bronchodilators, and antibiotics. Continue to monitor cultures 06/03/17 cultures show no growth so far. Patient continues to need BiPAP periodically throughout the day and night. She continues to cough and wheeze. Continue IV antibiotics, steroids, nebulizers and oxygen as needed. Consider discharge in 2-3 days. Shown some improvement but still very frail. I have given her a antihistamine for her right ear pain and eardrops for discomfort. (3) Daytime hypersomnolence Is this a current diagnosis for this admission?: Yes (4) Respiratory distress Is this a current diagnosis for this admission?: Yes Plan: Patient was admitted and monitored for COPD exacerbation will go ahead and treat prophylaxis on IV antibiotics since she was very frail and toxic appearing. Consult supervisor joiners appreciate his input. Patient slowly improving physically she continues to cough and wheeze. Continue monitor blood cultures continue IV antibiotics. (5) Sinusitis Qualifiers: Sinusitis location: frontal Chronicity: chronic Qualified Code(s): J32.1 - Chronic frontal sinusitis Is this a current diagnosis for this admission?: Yes Plan: She is currently on coverage broad-spectrum patient complained of headache she was given Fioricet yesterday has some relief but requested something little stronger today I give patient antihistamine and some Cipro eardrops for comfort. Here she may have some fluid buildup behind her right ear (6) Tobacco abuse Is this a current diagnosis for this admission?: Yes Plan: Patient was encouraged smoking cessation for improvement of her COPD and she is currently getting a nicotine patch (7) Weight loss Is this a current diagnosis for this admission?: Yes
[2017-06-03] MEDS: BENZONATATE 100 MG CAPSULE PO SCH (17:48)
[2017-06-03] MEDS: CIPROFLOXACIN-HC OTIC SUSP 10 ML AD SCH (22:10)
[2017-06-04] MEDS: BUTALB/ACETAMINOPHEN/CAFFEINE 1 TAB EACH PO PRN (01:00)
[2017-06-04] MEDS: BENZONATATE 100 MG CAPSULE PO SCH ×3 (01:05→18:27)
[2017-06-04] MEDS: METHYLPREDNISOLONE INJ 40 MG/1 ML SDV IV SCH ×2 (01:05→10:58)
[2017-06-04] MEDS: VANCOMYCIN HCL 1,000 MG in DEXTROSE 5%-WATER 250 ML IV SCH ×2 (05:44→13:51)
[2017-06-04] MEDS: HEPARIN SOD (PORCINE) 5,000 UNIT/ML 1 ML SYRINGE SUBCUT SCH ×3 (05:44→23:39)
[2017-06-04] MEDS: CEFTRIAXONE 1 GM/D5W RTU 1 GM/50 ML RTUPB IV SCH (05:44)
[2017-06-04] MEDS: LORATADINE/PSEUDOEPHEDRINE SUL 10-240 MG TAB.SR.24H PO SCH ×2 (05:45→18:28)
[2017-06-04] MEDS: GUAIFENESIN/CODEINE PHOS 100-10 MG/ 5 ML UDC PO PRN ×2 (05:47→13:51)
[2017-06-04] MEDS: ONDANSETRON HCL INJ/PF 4 MG/2 ML SDV IV SCH ×3 (05:49→23:37)
[2017-06-04] MEDS: HYDROCODONE/ACETAMINOPHEN 5-325 MG TABLET PO PRN ×3 (07:58→23:33)
[2017-06-04] MEDS: IPRATROPIUM/ALBUTEROL 0.5-2.5 MG/3 ML AMPUL NEB SCH ×4 (08:08→20:01)
[2017-06-04 09:25] LABS: MEAN CORPUSCULAR HEMOGLOBIN 19.3 pg (27.0-33.4); MEAN CORPUSCULAR HGB CONC 31.1 g/dL (32.0-36.0); MEAN CORPUSCULAR VOLUME 62 fl (80-97); RED BLOOD COUNT 5.18 10^6/uL (3.72-5.28); RED CELL DISTRIBUTION WIDTH 19.5 % (11.5-14.0); WHITE BLOOD COUNT 7.8 10^3/uL (4.0-10.5)
--- NOTE | 2017-06-04 09:26 | PDOC PROGRESS REPORT ---
Subjective Progress Note for:: 06/04/17 - Respiratory distress/exacerbation of COPD Subjective:: Feeling better extremely dyspneic with exertion Physical Exam Vital Signs: Temp Pulse Resp BP Pulse Ox 98.4 F 87 16 122/80 92 06/04/17 07:27 06/04/17 08:08 06/04/17 08:08 06/04/17 07:27 06/04/17 08:08 Pulse Oximeter Continuous Start: 05/31/17 12: 44 Freq: RTQ4 Status: Active Document 06/04/17 08:08 TPO (Rec: 06/04/17 08:22 TPO [email or web address]) Pulse Oximetry Assessment Oxygen Saturation (92-100) 92 Oxygen Delivery Method Room Air Fraction of Inspired Oxygen (FIO2) 21 Equipment Usage Equipment in Use Continuous SpO2 Machine # 11 Intake & Output 06/03/17 06/04/17 06/05/17 06:59 06:59 06:59 Intake Total 4105 Balance 4105 Weight 77.4 kg General appearance: PRESENT: no acute distress, cooperative, disheveled, thin Head exam: PRESENT: atraumatic, normocephalic Eye exam: PRESENT: conjunctiva pale, EOMI Mouth exam: PRESENT: dry mucosa, neck supple, tongue midline Respiratory exam: PRESENT: decreased breath sounds, prolonged expiratory phas, rhonchi, symmetrical, unlabored. ABSENT: accessory muscle use, chest wall tenderness, clear to auscultation daniel, crackles, rales, retraction, stridor, tachypnea Cardiovascular exam: PRESENT: RRR, +S1, +S2. ABSENT: tachycardia Pulses: PRESENT: normal radial pulses GI/Abdominal exam: PRESENT: normal bowel sounds, soft. ABSENT: distended, guarding, mass, organolmegaly, rebound, tenderness Gentrourinary exam: PRESENT: indwelling catheter Extremities exam: ABSENT: calf tenderness, joint swelling, pedal edema Musculoskeletal exam: ABSENT: deformity, dislocation, tenderness Neurological exam: PRESENT: alert, awake Psychiatric exam: PRESENT: normal mood Skin exam: PRESENT: dry, warm Results Laboratory Results: 06/03/17 05:20 05/31/17 06/01/17 06/01/17 08:30 05:29 05:29 Creatine Kinase 166 H Troponin I 0.373 NT-Pro-B Natriuret Pep 2150 H Impressions: Chest CT 05/31/17 00:00 IMPRESSION: NORMAL CT OF THE CHEST WITH IV CONTRAST. Facial Bones CT 05/31/17 00:00 IMPRESSION: Mild sinus disease. Chest X-Ray 06/01/17 08:38 IMPRESSION: NO SIGNIFICANT RADIOGRAPHIC FINDING IN THE CHEST. Assessment & Plan - Diagnosis (1) COPD exacerbation Is this a current diagnosis for this admission?: Yes Plan: Improving continue current therapy (2) Respiratory distress Is this a current diagnosis for this admission?: Yes Plan: Remains extremely dyspneic with any exertion but improved with rest (3) Tobacco abuse Is this a current diagnosis for this admission?: Yes Plan: transdermal nicotine (4) Sinusitis Qualifiers: Sinusitis location: frontal Chronicity: chronic Qualified Code(s): J32.1 - Chronic frontal sinusitis Is this a current diagnosis for this admission?: Yes Plan: [id number]-jshccoyrpoar conside ENT (5) Weight loss Is this a current diagnosis for this admission?: Yes (6) Daytime hypersomnolence Is this a current diagnosis for this admission?: Yes Plan: schedule sleep study at time of discharge
[2017-06-04] MEDS: CIPROFLOXACIN-HC OTIC SUSP 10 ML AD SCH ×2 (10:57→22:00)
[2017-06-04] MEDS: NYSTATIN 500000 UNIT/5 ML UDCUP PO SCH ×4 (10:57→23:36)
[2017-06-04] MEDS: GUAIFENESIN 600 MG TABLET.SA PO SCH ×2 (10:57→23:34)
[2017-06-04] MEDS: IPRATROPIUM BROMIDE HFA 17 MCG/PUFF 200 PUFF/12.9 GM MDI IH SCH (10:57)
[2017-06-04] MEDS: TIOTROPIUM BROMIDE DPI 5 CAP/KIT (18 MCG/CAP) IH SCH (10:58)
[2017-06-04] MEDS: LEVOFLOXACIN 500 MG/D5W RTU 500 MG/100 ML RTUPB IV SCH (10:59)
[2017-06-04] MEDS ORDERED: FUROSEMIDE INJ/PF 40 MG/4 ML SDV IV ONE (14:15)
[2017-06-04] MEDS ORDERED: GUAIFENESIN/CODEINE PHOS 100-10 MG/ 5 ML UDC PO PRN (14:30)
[2017-06-04] MEDS ORDERED: ALBUTEROL SULFATE HFA (90 MCG/PUFF) 200 PUFF/8.5 GM MDI IH PRN (14:30)
--- NOTE | 2017-06-04 15:21 | RADIOLOGY REPORT (SQ) ---
EXAM DESCRIPTION: PICC INSERTION; FLUORO/CV PLACEMENT; U/S GUIDE FOR VASCULAR ACCESS COMPLETED DATE/TIME: 06/04/2017 3:12 pm REASON FOR STUDY: no iv access; NO IV ACCESS COMPARISON: Two-view chest 06/01/2017 FLUOROSCOPY TIME: 17 seconds 1 ultrasound and 1 digital chest images saved to PACS. TECHNIQUE: Fluoroscopic and ultrasound guided PICC placement. LIMITATIONS: None. PROCEDURE: After written consent and assessment were obtained, the patient was brought into the fluo roscopy room and place supine on the table. Ultrasound was used on the patient's right arm for PICC access. The right arm was prepped and draped in a sterile fashion along with the ultrasound probe. Th e entry site was anesthetized with 1% lidocaine. A 21 gauge 7 cm needle was advanced through the skin and into the basilic vein under live ultrasound guidance. An ultrasound image was saved to PACS con firming access site. A .018 guide wire was then inserted through the needle and into the venous syst em. The needle was the removed and an 11 blade scalpel was used to make a 1cm skin incision. A 5 fr peel-away sheath was advanced over the wire and into the venous system. A measurement was then made u sing the existing wire and live fluoroscopic guidance. The wire was then removed and the trimmed. The PICC was advanced through the peel-away sheath and into the venous system. The peel-away sheath was removed and the catheter was adhered to the patients arm with a stat lock. The catheter was then aspi rated and flushed and a sterile bandage was placed over the access site. A fluoroscopic spot image w as saved to PACS confirming the catheter tip within the superior vena cava. IMPRESSION: SUCCESSFUL PLACEMENT OF A 5 FR DUAL LUMEN 32 CM PICC IN THE RIGHT BASILIC VEIN. COMMENT: Patient medication list reviewed: Yes- Quality ID# [id number]:Eligible professional attests to doc umenting in the medical record they obtained, updated, or reviewed the patient's current medications. . Quality ID 145: Final reports for procedures using fluoroscopy that document radiation exposure francoise filippo, or exposure time and number of fluorographic images (if radiation exposure indices are not avail able) Quality ID #[id number]: The patient was prepped and draped using maximum sterile barrier technique including cap, mask, sterile gown, sterile gloves, a large sterile sheet, hand hygiene, and 2% Chlorhexidine fo r cutaneous antisepsis. When ultrasound is used, sterile ultrasound techniques are followed requiring sterile gel and sterile probes. TECHNICAL DOCUMENTATION: JOB ID: [id number] [employer]- All Rights Reserved
--- NOTE | 2017-06-04 16:40 | PDOC PROGRESS REPORT ---
Subjective Progress Note for:: 06/04/17 Subjective:: Patient appears to be a little better today. States she is responding well to antibiotics. White blood count improved, she did have an elevated BNP of 2150 yesterday so I have given her some Lasix and held her IV fluids. Physical Exam Vital Signs: Temp Pulse Resp BP Pulse Ox 98.4 F 131 H 30 H 122/80 98 06/04/17 07:27 06/04/17 13:03 06/04/17 13:42 06/04/17 07:27 06/04/17 13:42 Pulse Oximeter Continuous Start: 05/31/17 12: 44 Freq: RTQ4 Status: Active Document 06/04/17 12:24 TPO (Rec: 06/04/17 12:30 TPO [email or web address]) Pulse Oximetry Assessment Oxygen Saturation (92-100) 93 Oxygen Delivery Method Room Air Fraction of Inspired Oxygen (FIO2) 21 Equipment Usage Equipment in Use Continuous SpO2 Machine # 11 Intake & Output 06/03/17 06/04/17 06/05/17 06:59 06:59 06:59 Intake Total 4105 Balance 4105 Weight 77.4 kg General appearance: PRESENT: no acute distress, mild distress, well-developed, well-nourished Head exam: PRESENT: atraumatic, normocephalic Eye exam: PRESENT: conjunctiva pink, EOMI, PERRLA. ABSENT: scleral icterus Ear exam: PRESENT: normal external ear exam Mouth exam: PRESENT: moist, tongue midline Neck exam: ABSENT: carotid bruit, JVD, lymphadenopathy, thyromegaly Respiratory exam: PRESENT: accessory muscle use, prolonged expiratory phas, rhonchi, tachypnea, wheezes. ABSENT: rales Cardiovascular exam: PRESENT: RRR. ABSENT: diastolic murmur, rubs, systolic murmur Pulses: PRESENT: normal dorsalis pedis pul Vascular exam: PRESENT: normal capillary refill GI/Abdominal exam: PRESENT: normal bowel sounds, soft. ABSENT: distended, guarding, mass, organolmegaly, rebound, tenderness Rectal exam: PRESENT: deferred Extremities exam: PRESENT: full ROM. ABSENT: calf tenderness, clubbing, pedal edema Neurological exam: PRESENT: alert, awake, oriented to person, oriented to place , oriented to time, oriented to situation, CN II-XII grossly intact. ABSENT: motor sensory deficit Psychiatric exam: PRESENT: appropriate affect, normal mood. ABSENT: homicidal ideation, suicidal ideation Skin exam: PRESENT: dry, intact, warm. ABSENT: cyanosis, rash Results Laboratory Results: 06/04/17 08:45 06/03/17 05:20 06/04/17 08:45 WBC 7.8 RBC 5.18 Hgb 10.0 L Hct 32.0 L MCV 62 L MCH 19.3 L MCHC 31.1 L RDW 19.5 H Plt Count 399 05/31/17 06/01/17 06/01/17 08:30 05:29 05:29 Creatine Kinase 166 H Troponin I 0.373 NT-Pro-B Natriuret Pep 2150 H Impressions: Chest CT 05/31/17 00:00 IMPRESSION: NORMAL CT OF THE CHEST WITH IV CONTRAST. Facial Bones CT 05/31/17 00:00 IMPRESSION: Mild sinus disease. Chest X-Ray 06/01/17 08:38 IMPRESSION: NO SIGNIFICANT RADIOGRAPHIC FINDING IN THE CHEST. Assessment & Plan - Diagnosis (1) Respiratory distress Is this a current diagnosis for this admission?: Yes Plan: Patient was admitted and monitored for COPD exacerbation will go ahead and treat prophylaxis on IV antibiotics since she was very frail and toxic appearing. Consult twister tender appreciate his input. Patient slowly improving physically she continues to cough and wheeze. Continue monitor blood cultures continue IV antibiotics. (2) Acute respiratory failure Qualifiers: Respiratory failure complication: hypoxia and hypercapnia Qualified Code(s) : J96.01 - Acute respiratory failure with hypoxia; J96.02 - Acute respiratory failure with hypercapnia; J96.02 - Acute respiratory failure with hypercapnia; J96.02 - Acute respiratory failure with hypercapnia Is this a current diagnosis for this admission?: Yes Plan: Patient came in with acute respiratory failure. She was placed on BiPAP. Was suspected that she may end up on the ventilator with she greatly improved her O2 sats, and hypercarbia with nebulizers, bronchodilators, and antibiotics. Continue to monitor cultures 06/03/17 cultures show no growth so far. Patient continues to need BiPAP periodically throughout the day and night. She continues to cough and wheeze. Continue IV antibiotics, steroids, nebulizers and oxygen as needed. Consider discharge in 2-3 days. Shown some improvement but still very frail. I have given her a antihistamine for her right ear pain and eardrops for discomfort. Patient not showing a lot of signs of improvement last few days. So I will give her a dose of Lasix IV to see if some of this could be fluid related (3) COPD exacerbation Is this a current diagnosis for this admission?: Yes Plan: Patient was started on IV antibiotics, steroids, bronchodilators,Guaifenesin, she did require and will continue to use BiPAP as needed to titrate until patient's comfortable repeat ABGs in 4 hours. Will get blood cultures and monitor her O2 sats closely. Patient refused need of nicotine patch at this time CT chest negative for mass. able to wean down on her BiPAP. Patient's on nasal cannula while sitting up eating breakfast. She had elevated BNP so I have stopped her IV fluids and will give her a dose of Lasix today Past social work/senior buyer planner to assist patient in home medication she will probably need to go home on some COPD meds. 06/04/17 continue nebulizer treatment and BiPAP as needed. Patient had a normal chest CT. (4) Daytime hypersomnolence Is this a current diagnosis for this admission?: Yes (5) Sinusitis Qualifiers: Sinusitis location: frontal Chronicity: chronic Qualified Code(s): J32.1 - Chronic frontal sinusitis Is this a current diagnosis for this admission?: Yes (6) Tobacco abuse Is this a current diagnosis for this admission?: Yes (7) Weight loss Is this a current diagnosis for this admission?: Yes
[2017-06-04] MEDS: METHYLPREDNISOLONE INJ 125 MG/2 ML SDV IV SCH (18:28)
[2017-06-04] MEDS: NORMAL SALINE 10 ML SDV (SCHEDULED) IV SCH (23:40)
[2017-06-04] MEDS: NORMAL SALINE 10 ML SDV (AFTER EACH USE) IV PRN (23:41)
[2017-06-05] MEDS: BENZONATATE 100 MG CAPSULE PO SCH ×3 (03:09→17:10)
[2017-06-05] MEDS: NORMAL SALINE 10 ML SDV (AFTER EACH USE) IV PRN ×2 (03:11→05:29)
[2017-06-05] MEDS: METHYLPREDNISOLONE INJ 125 MG/2 ML SDV IV SCH ×3 (03:11→17:09)
[2017-06-05 04:19] LABS: ABSOLUTE LYMPHOCYTES (AUTO) 1.9 10^3/uL (0.5-4.7); ABSOLUTE MONOCYTES (AUTO) 0.6 10^3/uL (0.1-1.4); ABSOLUTE NEUT (AUTO) 6.5 10^3/uL (1.7-8.2); BASOPHILS % (AUTO) 0.2 % (0-2); EOSINOPHILS % (AUTO) 0.2 % (0-6); HEMATOCRIT 31.7 % (36.0-47.0); HEMOGLOBIN 9.9 g/dL (12.0-15.5); LYMPHOCYTES % (AUTO) 21.3 % (13-45); MEAN CORPUSCULAR HEMOGLOBIN 19.3 pg (27.0-33.4); MEAN CORPUSCULAR HGB CONC 31.3 g/dL (32.0-36.0); MEAN CORPUSCULAR VOLUME 62 fl (80-97); MONOCYTES % (AUTO) 6.2 % (3-13); RED BLOOD COUNT 5.14 10^6/uL (3.72-5.28); RED CELL DISTRIBUTION WIDTH 19.2 % (11.5-14.0); SEGMENTED NEUTROPHILS % (AUTO) 72.1 % (42-78)
[2017-06-05 04:36] LABS: ANION GAP 17 (5-19); BLOOD UREA NITROGEN 21 mg/dL (7-20); CALCIUM 9.7 mg/dL (8.4-10.2); CARBON DIOXIDE 24 mmol/L (22-30); CHLORIDE 99 mmol/L (98-107); CREATININE RESULT 0.81 mg/dL (0.52-1.25); GLUCOSE 96 mg/dL (75-110); POTASSIUM 4.2 mmol/L (3.6-5.0); SODIUM 140.1 mmol/L (137-145)
[2017-06-05 04:42] LABS: ANISOCYTOSIS 2+; HYPOCHROMASIA 2+; MICROCYTOSIS 3+; OVALOCYTES 1+; POIKILOCYTOSIS 1+; TARGET CELLS SLIGHT
[2017-06-05] MEDS: HEPARIN SOD (PORCINE) 5,000 UNIT/ML 1 ML SYRINGE SUBCUT SCH ×3 (05:24→21:22)
[2017-06-05] MEDS: ONDANSETRON HCL INJ/PF 4 MG/2 ML SDV IV SCH ×3 (05:26→21:30)
[2017-06-05] MEDS: BUTALB/ACETAMINOPHEN/CAFFEINE 1 TAB EACH PO PRN (05:26)
[2017-06-05] MEDS: CEFTRIAXONE 1 GM/D5W RTU 1 GM/50 ML RTUPB IV SCH (05:27)
[2017-06-05] MEDS: LORATADINE/PSEUDOEPHEDRINE SUL 10-240 MG TAB.SR.24H PO SCH ×2 (05:28→17:10)
[2017-06-05] MEDS: IPRATROPIUM/ALBUTEROL 0.5-2.5 MG/3 ML AMPUL NEB SCH ×4 (07:54→20:35)
[2017-06-05] MEDS: HYDROCODONE/ACETAMINOPHEN 5-325 MG TABLET PO PRN ×3 (08:04→21:22)
[2017-06-05] MEDS: NYSTATIN 500000 UNIT/5 ML UDCUP PO SCH ×4 (09:29→21:24)
[2017-06-05] MEDS: GUAIFENESIN 600 MG TABLET.SA PO SCH ×2 (09:29→21:23)
[2017-06-05] MEDS: IPRATROPIUM BROMIDE HFA 17 MCG/PUFF 200 PUFF/12.9 GM MDI IH SCH (09:30)
[2017-06-05] MEDS: CIPROFLOXACIN-HC OTIC SUSP 10 ML AD SCH ×2 (09:31→21:26)
[2017-06-05] MEDS: NORMAL SALINE 10 ML SDV (SCHEDULED) IV SCH ×2 (09:35→21:30)
[2017-06-05] MEDS: LEVOFLOXACIN 500 MG/D5W RTU 500 MG/100 ML RTUPB IV SCH (09:35)
--- NOTE | 2017-06-05 10:16 | PDOC PROGRESS REPORT ---
Subjective Progress Note for:: 06/05/17 - Acute on chronic respiratory failure Subjective:: Resting comfortably on AVAPS Physical Exam Vital Signs: Temp Pulse Resp BP Pulse Ox 98.4 F 81 18 121/84 94 06/05/17 07:24 06/05/17 07:54 06/05/17 07:54 06/05/17 07:24 06/05/17 07:54 Pulse Oximeter Continuous Start: 05/31/17 12: 44 Freq: RTQ4 Status: Active Document 06/05/17 07:54 LDA (Rec: 06/05/17 08:42 LDA [email or web address]) Pulse Oximetry Assessment Oxygen Saturation (92-100) 94 Oxygen Flow Rate (L/min) 2 Equipment Usage Equipment in Use Continuous SpO2 Machine # 11 Intake & Output 06/04/17 06/05/17 06/06/17 06:59 06:59 06:59 Intake Total 4105 2266 Balance 4105 2266 Weight 77.4 kg 76.1 kg General appearance: PRESENT: no acute distress, disheveled, thin, well-developed Head exam: PRESENT: atraumatic, normocephalic Eye exam: PRESENT: conjunctiva pale, EOMI Mouth exam: PRESENT: dry mucosa, neck supple, tongue midline Neck exam: ABSENT: carotid bruit, JVD, lymphadenopathy, thyromegaly Respiratory exam: PRESENT: decreased breath sounds, prolonged expiratory phas, rhonchi, symmetrical, unlabored. ABSENT: accessory muscle use, chest wall tenderness, clear to auscultation daniel, crackles, rales, retraction, stridor, tachypnea, wheezes Cardiovascular exam: PRESENT: RRR, +S1, +S2. ABSENT: bradycardia, tachycardia Pulses: PRESENT: normal radial pulses GI/Abdominal exam: PRESENT: normal bowel sounds, soft. ABSENT: distended, guarding, mass, organolmegaly, rebound, tenderness Extremities exam: ABSENT: calf tenderness, clubbing, joint swelling, pedal edema , tenderness Musculoskeletal exam: PRESENT: normal inspection. ABSENT: deformity, dislocation, tenderness Neurological exam: PRESENT: awake Skin exam: PRESENT: dry, warm Results Laboratory Results: 06/05/17 03:55 06/05/17 03:55 06/05/17 06/05/17 03:55 03:55 WBC 9.0 RBC 5.14 Hgb 9.9 L Hct 31.7 L MCV 62 L MCH 19.3 L MCHC 31.3 L RDW 19.2 H Plt Count 460 H Seg Neutrophils % 72.1 Lymphocytes % 21.3 Monocytes % 6.2 Eosinophils % 0.2 Basophils % 0.2 Absolute Neutrophils 6.5 Absolute Lymphocytes 1.9 Absolute Monocytes 0.6 Absolute Eosinophils 0.0 Absolute Basophils 0.0 Sodium 140.1 Potassium 4.2 Chloride 99 Carbon Dioxide 24 Anion Gap 17 BUN 21 H Creatinine 0.81 Est GFR ( Amer) > 60 Est GFR (Non-Af Amer) > 60 Glucose 96 Calcium 9.7 06/02/17 10:55 Sputum Gram Stain - Final 05/31/17 06/01/17 06/01/17 08:30 05:29 05:29 Creatine Kinase 166 H Troponin I 0.373 NT-Pro-B Natriuret Pep 2150 H Impressions: Chest CT 05/31/17 00:00 IMPRESSION: NORMAL CT OF THE CHEST WITH IV CONTRAST. Facial Bones CT 05/31/17 00:00 IMPRESSION: Mild sinus disease. Chest X-Ray 06/01/17 08:38 IMPRESSION: NO SIGNIFICANT RADIOGRAPHIC FINDING IN THE CHEST. Guidance Fluoroscopy 06/04/17 00:00 IMPRESSION: SUCCESSFUL PLACEMENT OF A 5 FR DUAL LUMEN 32 CM PICC IN THE RIGHT BASILIC VEIN. Interventional Vascular Procedure 06/04/17 00:00 IMPRESSION: SUCCESSFUL PLACEMENT OF A 5 FR DUAL LUMEN 32 CM PICC IN THE RIGHT BASILIC VEIN. PICC Line Insertion 06/04/17 00:00 IMPRESSION: SUCCESSFUL PLACEMENT OF A 5 FR DUAL LUMEN 32 CM PICC IN THE RIGHT BASILIC VEIN. Assessment & Plan - Diagnosis (1) COPD exacerbation Is this a current diagnosis for this admission?: Yes Plan: Slight improvement over last 24 hours continue current therapy (2) Respiratory distress Is this a current diagnosis for this admission?: No (3) Tobacco abuse Is this a current diagnosis for this admission?: Yes Plan: transdermal nicotine (4) Sinusitis Qualifiers: Sinusitis location: frontal Chronicity: chronic Qualified Code(s): J32.1 - Chronic frontal sinusitis Is this a current diagnosis for this admission?: Yes (5) Weight loss Is this a current diagnosis for this admission?: Yes (6) Daytime hypersomnolence Is this a current diagnosis for this admission?: Yes
[2017-06-05] MEDS: TIOTROPIUM BROMIDE DPI 5 CAP/KIT (18 MCG/CAP) IH SCH (10:59)
[2017-06-05] MEDS ORDERED: ATORVASTATIN CALCIUM 40 MG TABLET PO ONE (14:30)
--- NOTE | 2017-06-05 14:43 | PDOC PROGRESS REPORT ---
Subjective Progress Note for:: 06/05/17 Subjective:: Patient is seen on morning rounds, resting comfortably with BiPAP in place. She does remove BiPAP to talk with me this morning. She is conversational without dyspnea and maintains oxygen saturation, however, she does become tachycardic with a heart rate averaging 120. She states that her breathing is slightly improved. She does continue to wear BiPAP nightly and as needed during the day. She states that she remains on BiPAP more often than not. She asks about continued Lasix dosing, stating that she did feel that her breathing improved slightly after receiving Lasix yesterday. She denies a history of CHF or requirement of diuretics in the past. She does report a remote history of dysrhythmia that required Toprol. She states that she has been off the medication for several years related to having lost her health insurance and does not recall exactly what heart rhythm she had. Additionally, she reports substernal chest pain that radiates to her back and jaw. The pain first started approximately 3 weeks ago and woke her from sleep. It was accompanied by extreme fatigue and dyspnea, resolving spontaneously within 20-30 minutes. The following morning she developed difficulty breathing and it progressively worsened until she sought medical care which led to her current admission. She reports that she continues to have substernal chest pain , described as tight/heavy. The pain is nonradiating, not appreciably worsened with activity, and seemingly improves with rest and BiPAP use. She denies associated bach, dizziness, diaphoresis, and nausea. Physical Exam Vital Signs: Temp Pulse Resp BP Pulse Ox 98.3 F 89 16 135/75 H 90 L 06/05/17 11:43 06/05/17 11:50 06/05/17 11:50 06/05/17 11:43 06/05/17 11:50 Pulse Oximeter Continuous Start: 05/31/17 12: 44 Freq: RTQ4 Status: Active Document 06/05/17 11:50 LDA (Rec: 06/05/17 12:11 LDA [email or web address]) Pulse Oximetry Assessment Oxygen Saturation (92-100) 90 Oxygen Delivery Method Room Air Fraction of Inspired Oxygen (FIO2) 21 Equipment Usage Equipment in Use Continuous SpO2 Machine # 11 Intake & Output 06/04/17 06/05/17 06/06/17 06:59 06:59 06:59 Intake Total 4105 2266 Balance 4105 2266 Weight 77.4 kg 76.1 kg General appearance: PRESENT: mild distress, well-developed, well-nourished Head exam: PRESENT: atraumatic, normocephalic Eye exam: PRESENT: conjunctiva pink, EOMI, PERRLA. ABSENT: scleral icterus Ear exam: PRESENT: normal external ear exam Mouth exam: PRESENT: moist, tongue midline Neck exam: ABSENT: carotid bruit, JVD, lymphadenopathy, thyromegaly Respiratory exam: PRESENT: decreased breath sounds, tachypnea, wheezes - Expiratory wheeze throughout. ABSENT: rales, rhonchi Cardiovascular exam: PRESENT: RRR, tachycardia. ABSENT: diastolic murmur, rubs , systolic murmur Pulses: PRESENT: normal dorsalis pedis pul Vascular exam: PRESENT: normal capillary refill GI/Abdominal exam: PRESENT: normal bowel sounds, soft. ABSENT: distended, guarding, mass, organolmegaly, rebound, tenderness Rectal exam: PRESENT: deferred Extremities exam: PRESENT: full ROM. ABSENT: calf tenderness, clubbing, pedal edema, +1 edema Neurological exam: PRESENT: alert, awake, oriented to person, oriented to place , oriented to time, oriented to situation, CN II-XII grossly intact. ABSENT: motor sensory deficit Psychiatric exam: PRESENT: appropriate affect, normal mood. ABSENT: homicidal ideation, suicidal ideation Skin exam: PRESENT: dry, intact, warm. ABSENT: cyanosis, rash Results Laboratory Results: 06/05/17 03:55 06/05/17 03:55 06/05/17 06/05/17 03:55 03:55 WBC 9.0 RBC 5.14 Hgb 9.9 L Hct 31.7 L MCV 62 L MCH 19.3 L MCHC 31.3 L RDW 19.2 H Plt Count 460 H Seg Neutrophils % 72.1 Lymphocytes % 21.3 Monocytes % 6.2 Eosinophils % 0.2 Basophils % 0.2 Absolute Neutrophils 6.5 Absolute Lymphocytes 1.9 Absolute Monocytes 0.6 Absolute Eosinophils 0.0 Absolute Basophils 0.0 Sodium 140.1 Potassium 4.2 Chloride 99 Carbon Dioxide 24 Anion Gap 17 BUN 21 H Creatinine 0.81 Est GFR ( Amer) > 60 Est GFR (Non-Af Amer) > 60 Glucose 96 Calcium 9.7 06/02/17 10:55 Sputum Gram Stain - Final 05/31/17 06/01/17 06/01/17 08:30 05:29 05:29 Creatine Kinase 166 H Troponin I 0.373 NT-Pro-B Natriuret Pep 2150 H 06/05/17 12:45 Creatine Kinase Troponin I NT-Pro-B Natriuret Pep 1090 H Impressions: Chest CT 05/31/17 00:00 IMPRESSION: NORMAL CT OF THE CHEST WITH IV CONTRAST. Facial Bones CT 05/31/17 00:00 IMPRESSION: Mild sinus disease. Chest X-Ray 06/01/17 08:38 IMPRESSION: NO SIGNIFICANT RADIOGRAPHIC FINDING IN THE CHEST. Guidance Fluoroscopy 06/04/17 00:00 IMPRESSION: SUCCESSFUL PLACEMENT OF A 5 FR DUAL LUMEN 32 CM PICC IN THE RIGHT BASILIC VEIN. Interventional Vascular Procedure 06/04/17 00:00 IMPRESSION: SUCCESSFUL PLACEMENT OF A 5 FR DUAL LUMEN 32 CM PICC IN THE RIGHT BASILIC VEIN. PICC Line Insertion 06/04/17 00:00 IMPRESSION: SUCCESSFUL PLACEMENT OF A 5 FR DUAL LUMEN 32 CM PICC IN THE RIGHT BASILIC VEIN. Assessment & Plan - Diagnosis (1) Acute respiratory failure Qualifiers: Respiratory failure complication: hypoxia and hypercapnia Qualified Code(s) : J96.01 - Acute respiratory failure with hypoxia; J96.02 - Acute respiratory failure with hypercapnia; J96.02 - Acute respiratory failure with hypercapnia; J96.02 - Acute respiratory failure with hypercapnia Is this a current diagnosis for this admission?: Yes Plan: She was admitted with acute respiratory failure secondary to COPD exacerbation. She has had a slow but progressive improvement in her respiratory status now requiring BiPAP only periodically throughout the day and at night. She does continue to have a productive cough, dyspnea with minimal exertion, and audible wheezing. Final blood cultures: no growth Sputum culture: Gram-negative rods 1- Supplemental oxygen to keep O2 sats greater than 90% 2- BiPAP nightly and as needed 3- Albuterol and DuoNeb's as needed 4- Continue IV Solu-Medrol 5- Appreciate Pulmonology consultation and recommendations 6- Continue IV Rocephin and IV Levaquin for presumed pneumonia; will narrow as sputum cultures result (2) COPD exacerbation Is this a current diagnosis for this admission?: Yes Plan: Plan as above. (3) Respiratory distress Is this a current diagnosis for this admission?: Yes Plan: Respiratory status with noted improvement after discontinuing IV fluids and provide a one-time dose of Lasix. Repeat proBNP trending down (2150-->1090). Echocardiogram completed. Plan as above. (4) Chest pain Qualifiers: Chest pain type: unspecified Qualified Code(s): R07.9 - Chest pain, unspecified Is this a current diagnosis for this admission?: Yes Plan: Patient reports intermittent chest pain described as heaviness and tightness. She reports the pain occasionally radiates to her right jaw. Pain is not appreciably worsened by activity, however does improve with rest and BiPAP use. Of note, patient reports that the chest pain precipitated her respiratory difficulties. Admission labs did show an initial upward trend of troponin from 0.050 to 0.373. Echocaradiogram completed. Pt reports an aspirin allergy; otherwise will start her on a Statin 1- Appreciate cardiology consultation and recommendation; will require a stress test once stable and prior to discharge. 2- Start Atorvastatin; will check lipid panel 3- Remain on telemetry (5) Elevated troponin Is this a current diagnosis for this admission?: Yes Plan: Elevated troponin of uncertain etiology (0.050--> 0.373); patient presented with acute respiratory failure secondary to COPD exacerbation. However, she does have risk factors for coronary artery disease. Will ask Dr. Wynn to evaluate the patient. She has an aspirin allergy and so will be unable to start ASA. Will check lipids and start on a statin. Echocardiogram completed. Will require a stress test prior to discharge. 1- Plan as above. (6) Sinusitis Qualifiers: Sinusitis location: frontal Chronicity: chronic Qualified Code(s): J32.1 - Chronic frontal sinusitis Is this a current diagnosis for this admission?: Yes Plan: Currently on broad-spectrum antibiotics; will not require antibiotics at discharge for chronic bronchitis. Will benefit primarily from symptomatic treatment such as occasional NSAID, decongestant use, and nasal flushing such as that by a Krystle pot. (7) Tobacco abuse Is this a current diagnosis for this admission?: Yes Plan: Smoking cessation advised, patient declines nicotine replacement therapy at this time. - Time Time Spent with patient: 35 or more minutes Smoking Cessation Education: 3 to 10 minutes Medications reviewed and adjusted accordingly: Yes - Inpatient Certification Based on my medical assessment, after consideration of the patient's comorbidities, presenting symptoms, or acuity I expect that the services needed warrant INPATIENT care.: Yes I certify that my determination is in accordance with my understanding of Medicare's requirements for reasonable and necessary INPATIENT services [42 CFR 412.3e].: Yes Medical Necessity: Failure to Improve With Outpatient Therapy, Need Close Monitoring Due to Risk of Patient Decompensation, Need For Continuous Telemetry Monitoring, Need for IV Antibiotics
--- NOTE | 2017-06-05 19:36 | PDOC CONSULTATION ---
Consultation Consult Date: 06/05/17 Attending physician:: DAYA HAGAN Consult reason:: Abnormal troponin I elevation History of Present Illness Admission Date/PCP: 05/31/17 08:28 Patient complains of: Chest pain prior to admission History of Present Illness: ARIA MCBRIDE is a 47 year old female complains of increasing shortness of breath and cough productive of yellow phlegm that increased over the preceding 5 days to the point where she could not breathe and presented to the emergency room where she was subsequently admitted. Patient states she has been sick for about 3 weeks. She denies fever. 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 Not currently on any COPD medications asthma medications. She has had 4 hospitalizations in the last 10 months for shortness of breath requiring BiPAP with acute respiratory failure elevated CO2 levels. Patient is a current smoker. Patient states she feels like she was about to this. She denies any chest pain, edema, hemopytsis, patient states she currently does not have any health insurance. This history was reviewed and confirmed. Subsequently patient was interviewed this morning with her being present. Patient had a episode of severe chest pain radiating to both arms few days prior to admission. This lasted for about 10-15 minutes and then resolved spontaneously. Since then patient has had no recurrence of chest pain. Patient denied any prior history of myocardial infarction, angina or congestive heart failure. She does have history of smoking but denied any history of hypertension, diabetes, dyslipidemia. Patient does give strong family history of premature coronary artery disease. Patient did however tell me that she quit smoking about 3 weeks prior to admission. Past Medical History Cardiac Medical History: Reports: Hypertension Pulmonary Medical History: Reports: Asthma, Bronchitis, Chronic Obstructive Pulmonary Disease (COPD), Pneumonia, Respiratory Failure Neurological Medical History: Reports: Migraine, Seizures - hx of, Other - vagus nerve seizures Malignancy Medical History: Reports: None GI Medical History: Reports: Gastroesophageal Reflux Disease Musculoskeltal Medical History: Reports: Arthritis, Fibromyalgia Skin Medical History: Denies: None, Eczema, Psoriasis, Other Psychiatric Medical History: Reports: Depression, General Anxiety Disorder, Tobacco Dependency Hematology: Reports: Anemia Infectious Medical History: Denies: None, Clostridium Difficile, Hepatitis B, Hepatitis C, HIV, Methicillin-Resistant Staph Aureus, Vancomycin-Resistant Enterococci, Other Past Surgical History Past Surgical History: Reports: Orthopedic Surgery - R knee, Tubal Ligation Social History Information Source: Patient Lives with: Spouse/Significant other Smoking Status: Current Every Day Smoker Cigarettes Packs Per Day: 1 Number of Years Smokin Last Time Smoked: 1 week ago Frequency of Alcohol Use: Rare Hx Recreational Drug Use: No Drugs: None Hx Prescription Drug Abuse: No - Advance Directive Resuscitation Status: Full Code Surrogate healthcare decision maker:: Patient spouse is the surrogate decision-maker Family History Family History: CAD, CVA, Hypertension, Malignancy Parental Family History Reviewed: Yes Children Family History Reviewed: Yes Sibling(s) Family History Reviewed.: Yes - Patient describes family history of premature coronary artery disease Medication/Allergy Home Medications: No Home Medications 05/31/17 Allergies/Adverse Reactions: acetaminophen [From Percocet] Allergy (Verified 05/31/17 06:17) aspirin [Aspirin] Allergy (Verified 05/31/17 06:17) citalopram hydrobromide [From Celexa] Allergy (Verified 05/31/17 06:17) morphine [Morphine] Allergy (Verified 05/31/17 06:17) NSAIDS (Non-Steroidal Anti-Inflamma [Nsaids] Allergy (Verified 05/31/17 06:17) oxycodone HCl [From Percocet] Allergy (Verified 05/31/17 06:17) pregabalin [From Lyrica] Allergy (Verified 05/31/17 06:17) Sulfa (Sulfonamide Antibiotics) Allergy (Verified 05/31/17 06:17) Review of Systems Review of Systems: Please see history of present illness and past medical history as wall. Constitutional: No fever or chills reported. Head : No recent chronic headaches, recent head injury. Eyes: No recent eye pain, diplopia, redness, discharge, acute visual changes. Ears: No recent chronic ear pain, acute hearing loss, ear discharge. Oral cavity: No recent ulcerations, bleeding, oral cavity discomfort. Neck: No recent acute neck pain reported. Hematologic: No recent easy bruising or bleeding or hematologic malignancy reported. Lymphatic: No recent lymphatic malignancy, chronic lymphadenopathy reported yet Cardiovascular system review: See history of present illness. Respiratory system review: History positive for chronic cough, denied any hemoptysis, denied blood clots in the lungs reported. Mild Shortness of breath on exertion. More recently severely short of breath on mild exertion. Gastrointestinal system review: Negative for any recent acute or chronic abdominal pain, hematemesis, melena, recent change in bowel habits. Genitourinary system review: No recent acute or chronic hematuria, flank pain, UTI etc. reported. Skin system review: Negative for any recent abnormal bruising, no rash, no pruritus reported. Neurologic: No prior history of strokes, mini strokes, seizure disorder. Psychologic: No history of major psychosis or major depression reported. Musculoskeletal: Minor aches and pains reported. No acute joint swelling reported. Endocrine: No recent polyuria, polydipsia, recent heat or cold intolerance. Patient has been noted loud snoring, restless sleep. Physical Exam Vital Signs: Temp Pulse Resp BP Pulse Ox 98.3 F 85 14 135/75 H 92 06/05/17 11:43 06/05/17 15:33 06/05/17 15:33 06/05/17 11:43 06/05/17 15:33 Pulse Oximeter Continuous Start: 05/31/17 12: 44 Freq: RTQ4 Status: Active Document 06/05/17 15:33 LDA (Rec: 06/05/17 15:35 LDA [email or web address]) Pulse Oximetry Assessment Oxygen Saturation (92-100) 92 Oxygen Delivery Method Room Air Fraction of Inspired Oxygen (FIO2) 21 Equipment Usage Equipment in Use Continuous SpO2 Machine # 11 Intake & Output 06/04/17 06/05/17 06/06/17 06:59 06:59 06:59 Intake Total 4105 2266 460 Balance 4105 2266 460 Weight 77.4 kg 76.1 kg Exam: GENERAL: well-nourished and in no acute distress. Alert and oriented x3 HEAD: Atraumatic, normocephalic. EYES: Pupils equal round and reactive to light, extraocular movements intact, sclera anicteric, conjunctiva are normal. ENT: TMs normal, nares patent, oropharynx clear without exudates. Moist mucous membranes. No oral ulcerations or bleeding gums noted NECK: supple without lymphadenopathy. Trachea is central. No cervical or axillary lymphadenopathy noted. Carotids are 2+, JVD WNL LUNGS: Respiration seems nonlabored, no significant accessory muscle action noted. Bilateral wheezes rales or rhonchi noted. No significant dullness noted on percussion. CHEST: Palpation of the chest wall shows no significant chest wall tenderness. No other significant abnormalities noted. HEART: [place] DIRECTOR CLINICAL APPLICATIONS, No PSH, 1/6 MEHRDAD aortic area, 1/6 liao systolic murmur mitral area, no rubs, no gallops. ABDOMEN: Soft, no significant tenderness appreciated, normoactive bowel sounds. No guarding, no rebound. No rigidity noted . No masses appreciated. EXTREMITIES: Pedal pulses are 1-2+, no calf tenderness noted. No clubbing or cyanosis.trace to 1+ pedal edema noted NEUROLOGICAL: Focused neurological exam showed no significant neurologic deficit. Normal speech, no focal weakness appreciated. PSYCH: Normal mood, normal affect. Judgment and insight within normal limits. SKIN: No significant ecchymosis, rash, ulcerations or signs of pruritus noted. MUSCULOSKELETAL EXAM: No significant joint swelling noted. Results Laboratory Results: 06/05/17 03:55 06/05/17 03:55 06/05/17 06/05/17 03:55 03:55 WBC 9.0 RBC 5.14 Hgb 9.9 L Hct 31.7 L MCV 62 L MCH 19.3 L MCHC 31.3 L RDW 19.2 H Plt Count 460 H Seg Neutrophils % 72.1 Lymphocytes % 21.3 Monocytes % 6.2 Eosinophils % 0.2 Basophils % 0.2 Absolute Neutrophils 6.5 Absolute Lymphocytes 1.9 Absolute Monocytes 0.6 Absolute Eosinophils 0.0 Absolute Basophils 0.0 Sodium 140.1 Potassium 4.2 Chloride 99 Carbon Dioxide 24 Anion Gap 17 BUN 21 H Creatinine 0.81 Est GFR ( Amer) > 60 Est GFR (Non-Af Amer) > 60 Glucose 96 Calcium 9.7 06/02/17 10:55 Sputum Gram Stain - Final 05/31/17 06/01/17 06/01/17 08:30 05:29 05:29 Creatine Kinase 166 H Troponin I 0.373 NT-Pro-B Natriuret Pep 2150 H 06/05/17 12:45 Creatine Kinase Troponin I NT-Pro-B Natriuret Pep 1090 H EKG Comments: Sinus rhythm, no acute ST-T wave changes are noted Impressions: Chest CT 05/31/17 00:00 IMPRESSION: NORMAL CT OF THE CHEST WITH IV CONTRAST. Facial Bones CT 05/31/17 00:00 IMPRESSION: Mild sinus disease. Chest X-Ray 06/01/17 08:38 IMPRESSION: NO SIGNIFICANT RADIOGRAPHIC FINDING IN THE CHEST. Guidance Fluoroscopy 06/04/17 00:00 IMPRESSION: SUCCESSFUL PLACEMENT OF A 5 FR DUAL LUMEN 32 CM PICC IN THE RIGHT BASILIC VEIN. Interventional Vascular Procedure 06/04/17 00:00 IMPRESSION: SUCCESSFUL PLACEMENT OF A 5 FR DUAL LUMEN 32 CM PICC IN THE RIGHT BASILIC VEIN. PICC Line Insertion 06/04/17 00:00 IMPRESSION: SUCCESSFUL PLACEMENT OF A 5 FR DUAL LUMEN 32 CM PICC IN THE RIGHT BASILIC VEIN. Assessment & Plan - Diagnosis (1) Elevated troponin Is this a current diagnosis for this admission?: Yes (2) Chest pain Qualifiers: Chest pain type: unspecified Qualified Code(s): R07.9 - Chest pain, unspecified Is this a current diagnosis for this admission?: Yes (3) COPD exacerbation Is this a current diagnosis for this admission?: Yes (4) Daytime hypersomnolence Is this a current diagnosis for this admission?: Yes (5) Tobacco abuse Is this a current diagnosis for this admission?: Yes - Notes Notes: Elevated troponin I: This elevation was in the non-STEMI range. Exact etiology not clear but could well be COPD exacerbation, hypoxemia etc. Will repeat an EKG in morning. Will consider stress test prior to discharge. Currently patient is having significant wheezing. Chest pain: Chest pain preceded recent admission by few days. There are multiple differential diagnosis. To be evaluated further with a nuclear stress test. Differential diagnosis includes cardiac ischemic pain, gastroesophageal reflux, anxiety panic disorder, musculoskeletal pain etc. COPD with exacerbation: This is a significant problem and currently patient having active wheezing. Daytime sleepiness: Possibly related to underlying sleep apnea syndrome. To be evaluated further as an outpatient. Tobacco abuse: Patient advised against continuing tobacco use and advised about cessation. - Time Time Spent: 30 to 50 Minutes - CODE STATUS was discussed, patient remains full code. Surrogate decision-maker patient's . Multiple medical problems were addressed. More than 50% of the time spent coordinating care, discussing management plans with involved caregivers. Management plans discussed with involved personnels. Medical decision making was of moderate to high complexity , patient's has multiple comorbidities. Smoking Education Provided: Over 3 minutes
[2017-06-06] MEDS: METHYLPREDNISOLONE INJ 125 MG/2 ML SDV IV SCH ×3 (01:34→17:44)
[2017-06-06] MEDS: BENZONATATE 100 MG CAPSULE PO SCH ×3 (01:34→17:48)
[2017-06-06] MEDS: NORMAL SALINE 10 ML SDV (AFTER EACH USE) IV PRN ×4 (01:35→05:26)
[2017-06-06] MEDS: BUTALB/ACETAMINOPHEN/CAFFEINE 1 TAB EACH PO PRN ×2 (01:43→21:03)
[2017-06-06] MEDS: HYDROCODONE/ACETAMINOPHEN 5-325 MG TABLET PO PRN ×2 (03:36→12:55)
[2017-06-06] MEDS: HEPARIN SOD (PORCINE) 5,000 UNIT/ML 1 ML SYRINGE SUBCUT SCH ×3 (05:05→21:05)
[2017-06-06] MEDS: ONDANSETRON HCL INJ/PF 4 MG/2 ML SDV IV SCH ×3 (05:06→21:03)
[2017-06-06] MEDS: CEFTRIAXONE 1 GM/D5W RTU 1 GM/50 ML RTUPB IV SCH (05:16)
[2017-06-06 06:12] LABS: HEMATOCRIT 30.8 % (36.0-47.0); HEMOGLOBIN 9.6 g/dL (12.0-15.5); MEAN CORPUSCULAR HEMOGLOBIN 19.2 pg (27.0-33.4); MEAN CORPUSCULAR HGB CONC 31.2 g/dL (32.0-36.0); MEAN CORPUSCULAR VOLUME 62 fl (80-97); RED CELL DISTRIBUTION WIDTH 19.6 % (11.5-14.0); WHITE BLOOD COUNT 7.3 10^3/uL (4.0-10.5)
[2017-06-06 06:22] LABS: ANION GAP 12 (5-19); BLOOD UREA NITROGEN 26 mg/dL (7-20); CALCIUM 9.6 mg/dL (8.4-10.2); CARBON DIOXIDE 24 mmol/L (22-30); CHLORIDE 101 mmol/L (98-107); CHOLESTEROL 172.39 mg/dL (0-200); CREATININE RESULT 0.82 mg/dL (0.52-1.25); Direct HDL 66 mg/dL (>40); GLUCOSE 111 mg/dL (75-110); POTASSIUM 4.4 mmol/L (3.6-5.0); TRIGLYCERIDES 93 mg/dL (<150)
[2017-06-06 06:33] LABS: DIRECT LDL 92 mg/dL (<100)
[2017-06-06] MEDS: LORATADINE/PSEUDOEPHEDRINE SUL 10-240 MG TAB.SR.24H PO SCH ×2 (07:45→17:48)
[2017-06-06] MEDS: IPRATROPIUM/ALBUTEROL 0.5-2.5 MG/3 ML AMPUL NEB SCH ×4 (08:15→20:24)
--- NOTE | 2017-06-06 10:03 | PDOC PROGRESS REPORT ---
Subjective Progress Note for:: 06/06/17 - Acute on chronic respiratory failure Subjective:: Dependent on BiPAP rest and exertion;extremely dyspneic with exertion Physical Exam Vital Signs: Temp Pulse Resp BP Pulse Ox 98.2 F 89 16 130/76 H 97 06/06/17 04:29 06/06/17 08:02 06/06/17 08:02 06/06/17 04:29 06/06/17 08:02 Pulse Oximeter Continuous Start: 05/31/17 12: 44 Freq: RTQ4 Status: Active Document 06/06/17 08:02 LDA (Rec: 06/06/17 09:35 LDA [email or web address]) Pulse Oximetry Assessment Oxygen Saturation (92-100) 97 Oxygen Flow Rate (L/min) 2 Oxygen Delivery Method Nasal Cannula Equipment Usage Equipment in Use Continuous SpO2 Machine # 11 Intake & Output 06/05/17 06/06/17 06/07/17 06:59 06:59 06:59 Intake Total 2266 980 Balance 2266 980 Weight 76.1 kg 75.8 kg General appearance: PRESENT: cooperative, disheveled, thin, well-developed Head exam: PRESENT: atraumatic, normocephalic Eye exam: PRESENT: conjunctiva pale, EOMI Mouth exam: PRESENT: neck supple, tongue midline. ABSENT: dry mucosa Neck exam: ABSENT: carotid bruit, JVD, lymphadenopathy, thyromegaly Respiratory exam: PRESENT: decreased breath sounds, prolonged expiratory phas, rhonchi, symmetrical, unlabored, wheezes. ABSENT: accessory muscle use, chest wall tenderness, clear to auscultation daniel, crackles, rales, retraction, stridor , tachypnea Cardiovascular exam: PRESENT: bradycardia, RRR, +S1, +S2, systolic murmur Pulses: PRESENT: normal radial pulses GI/Abdominal exam: PRESENT: normal bowel sounds, soft. ABSENT: distended, guarding, mass, organolmegaly, rebound, tenderness Rectal exam: PRESENT: deferred Extremities exam: ABSENT: calf tenderness, clubbing, joint swelling, pedal edema Musculoskeletal exam: PRESENT: ambulatory, normal inspection. ABSENT: deformity , dislocation, full ROM Neurological exam: PRESENT: alert, awake Psychiatric exam: PRESENT: normal mood Skin exam: PRESENT: dry, warm Results Laboratory Results: 06/06/17 05:00 06/06/17 05:00 06/06/17 06/06/17 05:00 05:00 WBC 7.3 RBC 5.00 Hgb 9.6 L Hct 30.8 L MCV 62 L MCH 19.2 L MCHC 31.2 L RDW 19.6 H Plt Count 399 Sodium 137.0 Potassium 4.4 Chloride 101 Carbon Dioxide 24 Anion Gap 12 BUN 26 H Creatinine 0.82 Est GFR ( Amer) > 60 Est GFR (Non-Af Amer) > 60 Glucose 111 H Calcium 9.6 Triglycerides 93 Cholesterol 172.39 LDL Cholesterol Direct 92 VLDL Cholesterol 19.0 HDL Cholesterol 66 06/02/17 10:55 Sputum Gram Stain - Final 05/31/17 06/01/17 06/01/17 08:30 05:29 05:29 Creatine Kinase 166 H Troponin I 0.373 NT-Pro-B Natriuret Pep 2150 H 06/05/17 12:45 Creatine Kinase Troponin I NT-Pro-B Natriuret Pep 1090 H Impressions: Chest CT 05/31/17 00:00 IMPRESSION: NORMAL CT OF THE CHEST WITH IV CONTRAST. Facial Bones CT 05/31/17 00:00 IMPRESSION: Mild sinus disease. Chest X-Ray 06/01/17 08:38 IMPRESSION: NO SIGNIFICANT RADIOGRAPHIC FINDING IN THE CHEST. Guidance Fluoroscopy 06/04/17 00:00 IMPRESSION: SUCCESSFUL PLACEMENT OF A 5 FR DUAL LUMEN 32 CM PICC IN THE RIGHT BASILIC VEIN. Interventional Vascular Procedure 06/04/17 00:00 IMPRESSION: SUCCESSFUL PLACEMENT OF A 5 FR DUAL LUMEN 32 CM PICC IN THE RIGHT BASILIC VEIN. PICC Line Insertion 06/04/17 00:00 IMPRESSION: SUCCESSFUL PLACEMENT OF A 5 FR DUAL LUMEN 32 CM PICC IN THE RIGHT BASILIC VEIN. Assessment & Plan - Diagnosis (1) COPD exacerbation Is this a current diagnosis for this admission?: Yes Plan: no change continue current therapy (2) Respiratory distress Is this a current diagnosis for this admission?: Yes Plan: Remains extremely dyspneic with any exertion minimally improved with rest (3) Tobacco abuse Is this a current diagnosis for this admission?: Yes Plan: transdermal nicotine (4) Sinusitis Qualifiers: Sinusitis location: frontal Chronicity: chronic Qualified Code(s): J32.1 - Chronic frontal sinusitis Is this a current diagnosis for this admission?: Yes Plan: [id number] (5) Weight loss Is this a current diagnosis for this admission?: Yes (6) Daytime hypersomnolence Is this a current diagnosis for this admission?: Yes Plan: schedule sleep study at time of discharge
--- NOTE | 2017-06-06 10:47 | PDOC PROGRESS REPORT ---
Subjective Progress Note for:: 06/06/17 Subjective:: Patient is seen on morning rounds, resting comfortably while on supplemental oxygen via nasal cannula 4 L/min. She is noted to be maintaining her saturations well conversational at greater than 96% without labored respirations. She reports continued productive cough, dyspnea at rest, and extreme dyspnea with minimal exertion. She reports continued chest heaviness noted to be more severe on the left upper chest that worsens with inspiration. Denies radiation of the chest pain or associated symptoms such as dizziness, headache, diaphoresis, nausea. Pain is not appreciably worsened by activity, does continue to improve with rest and BiPAP use. Overall, she reports that she is feeling slightly improved from yesterday. She has no new questions or concerns. Physical Exam Vital Signs: Temp Pulse Resp BP Pulse Ox 98.2 F 89 16 130/76 H 97 06/06/17 04:29 06/06/17 08:02 06/06/17 08:02 06/06/17 04:29 06/06/17 08:02 Pulse Oximeter Continuous Start: 05/31/17 12: 44 Freq: RTQ4 Status: Active Document 06/06/17 08:02 LDA (Rec: 06/06/17 09:35 LDA [email or web address]) Pulse Oximetry Assessment Oxygen Saturation (92-100) 97 Oxygen Flow Rate (L/min) 2 Oxygen Delivery Method Nasal Cannula Equipment Usage Equipment in Use Continuous SpO2 Machine # 11 Intake & Output 06/05/17 06/06/17 06/07/17 06:59 06:59 06:59 Intake Total 2266 980 Balance 2266 980 Weight 76.1 kg 75.8 kg General appearance: PRESENT: mild distress, well-developed, well-nourished Head exam: PRESENT: atraumatic, normocephalic Eye exam: PRESENT: conjunctiva pink, EOMI, PERRLA. ABSENT: scleral icterus Ear exam: PRESENT: normal external ear exam Mouth exam: PRESENT: moist, tongue midline Neck exam: ABSENT: carotid bruit, JVD, lymphadenopathy, thyromegaly Respiratory exam: PRESENT: rhonchi - throughout, tachypnea, wheezes - inspiratory and expiratory wheezing throughout. ABSENT: rales Cardiovascular exam: PRESENT: RRR, tachycardia. ABSENT: diastolic murmur, rubs , systolic murmur Pulses: PRESENT: normal dorsalis pedis pul Vascular exam: PRESENT: normal capillary refill GI/Abdominal exam: PRESENT: normal bowel sounds, soft. ABSENT: distended, guarding, mass, organolmegaly, rebound, tenderness Rectal exam: PRESENT: deferred Extremities exam: PRESENT: full ROM. ABSENT: calf tenderness, clubbing, pedal edema Neurological exam: PRESENT: alert, awake, oriented to person, oriented to place , oriented to time, oriented to situation, CN II-XII grossly intact. ABSENT: motor sensory deficit Psychiatric exam: PRESENT: appropriate affect, normal mood. ABSENT: homicidal ideation, suicidal ideation Skin exam: PRESENT: dry, intact, warm. ABSENT: cyanosis, rash Results Laboratory Results: 06/06/17 05:00 06/06/17 05:00 06/06/17 06/06/17 05:00 05:00 WBC 7.3 RBC 5.00 Hgb 9.6 L Hct 30.8 L MCV 62 L MCH 19.2 L MCHC 31.2 L RDW 19.6 H Plt Count 399 Sodium 137.0 Potassium 4.4 Chloride 101 Carbon Dioxide 24 Anion Gap 12 BUN 26 H Creatinine 0.82 Est GFR ( Amer) > 60 Est GFR (Non-Af Amer) > 60 Glucose 111 H Calcium 9.6 Triglycerides 93 Cholesterol 172.39 LDL Cholesterol Direct 92 VLDL Cholesterol 19.0 HDL Cholesterol 66 06/02/17 10:55 Sputum Gram Stain - Final 05/31/17 06/01/17 06/01/17 08:30 05:29 05:29 Creatine Kinase 166 H Troponin I 0.373 NT-Pro-B Natriuret Pep 2150 H 06/05/17 12:45 Creatine Kinase Troponin I NT-Pro-B Natriuret Pep 1090 H Impressions: Chest CT 05/31/17 00:00 IMPRESSION: NORMAL CT OF THE CHEST WITH IV CONTRAST. Facial Bones CT 05/31/17 00:00 IMPRESSION: Mild sinus disease. Chest X-Ray 06/01/17 08:38 IMPRESSION: NO SIGNIFICANT RADIOGRAPHIC FINDING IN THE CHEST. Guidance Fluoroscopy 06/04/17 00:00 IMPRESSION: SUCCESSFUL PLACEMENT OF A 5 FR DUAL LUMEN 32 CM PICC IN THE RIGHT BASILIC VEIN. Interventional Vascular Procedure 06/04/17 00:00 IMPRESSION: SUCCESSFUL PLACEMENT OF A 5 FR DUAL LUMEN 32 CM PICC IN THE RIGHT BASILIC VEIN. PICC Line Insertion 06/04/17 00:00 IMPRESSION: SUCCESSFUL PLACEMENT OF A 5 FR DUAL LUMEN 32 CM PICC IN THE RIGHT BASILIC VEIN. Assessment & Plan - Diagnosis (1) Acute respiratory failure Qualifiers: Respiratory failure complication: hypoxia and hypercapnia Qualified Code(s) : J96.01 - Acute respiratory failure with hypoxia; J96.02 - Acute respiratory failure with hypercapnia; J96.02 - Acute respiratory failure with hypercapnia; J96.02 - Acute respiratory failure with hypercapnia Is this a current diagnosis for this admission?: Yes Plan: She was admitted with acute on chronic respiratory failure secondary to COPD exacerbation. She has had a slow but progressive improvement in her respiratory status now requiring BiPAP only periodically throughout the day and at night. She does continue to have a productive cough, dyspnea with minimal exertion, and audible wheezing. Final blood cultures: no growth Sputum culture: Gram-negative rods (pending) 1- Supplemental oxygen to keep O2 sats greater than 90% 2- BiPAP nightly and as needed 3- Albuterol and DuoNeb's as needed 4- Continue IV Solu-Medrol 5- Appreciate Pulmonology consultation and recommendations 6- Continue IV Rocephin and IV Levaquin for presumed pneumonia; will narrow as sputum cultures result (2) COPD exacerbation Is this a current diagnosis for this admission?: Yes Plan: Plan as above. (3) Respiratory distress Is this a current diagnosis for this admission?: Yes Plan: Respiratory status with noted improvement after discontinuing IV fluids and provide a one-time dose of Lasix. Repeat proBNP trending down (2150-->1090). Weight is appropriately down 2 kg from 06/04/17. D-dimer negative. Echocardiogram completed. Plan as above. (4) Chest pain Qualifiers: Chest pain type: unspecified Qualified Code(s): R07.9 - Chest pain, unspecified Is this a current diagnosis for this admission?: Yes Plan: Patient reports intermittent chest pain described as heaviness and tightness. Pain is not appreciably worsened by activity, however does improve with rest and BiPAP use. Of note, patient reports that the chest pain precipitated her respiratory difficulties. Admission labs did show an initial upward trend of troponin from 0.050 to 0.373. Echocaradiogram completed. D-dimer negative. Pt reports an aspirin allergy; otherwise will start her on a Statin. 1- Appreciate cardiology consultation and recommendations; will require a stress test once stable and prior to discharge. 2- Atorvastatin qHS 3- Remain on telemetry (5) Elevated troponin Is this a current diagnosis for this admission?: Yes Plan: Elevated troponin of uncertain etiology (0.050--> 0.373); patient presented with acute respiratory failure secondary to COPD exacerbation. However, she does have risk factors for coronary artery disease. Apperciate Dr. Wynn's recommendations. She has an aspirin allergy and so will be unable to start ASA. Started on statin. Echocardiogram completed. Will require a stress test prior to discharge. 1- Plan as above. (6) Sinusitis Qualifiers: Sinusitis location: frontal Chronicity: chronic Qualified Code(s): J32.1 - Chronic frontal sinusitis Is this a current diagnosis for this admission?: Yes Plan: Currently on broad-spectrum antibiotics; will not require antibiotics at discharge for chronic sinusitis. Will benefit primarily from symptomatic treatment such as occasional NSAID, decongestant use, and nasal flushing such as that by a [place] pot. (7) Tobacco abuse Is this a current diagnosis for this admission?: Yes Plan: Smoking cessation advised, patient declines nicotine replacement therapy at this time. - Time Time Spent with patient: 15-24 minutes Smoking Cessation Education: 3 to 10 minutes Medications reviewed and adjusted accordingly: Yes - Inpatient Certification Medical Necessity: Failure to Improve With Outpatient Therapy, Need Close Monitoring Due to Risk of Patient Decompensation, Need for Nebulizer Therapy and Monitoring of Response, Need for IV Antibiotics
[2017-06-06] MEDS: GUAIFENESIN 600 MG TABLET.SA PO SCH ×2 (11:57→21:03)
[2017-06-06] MEDS: NYSTATIN 500000 UNIT/5 ML UDCUP PO SCH ×4 (11:58→21:03)
[2017-06-06] MEDS: TIOTROPIUM BROMIDE DPI 5 CAP/KIT (18 MCG/CAP) IH SCH (11:59)
[2017-06-06] MEDS: IPRATROPIUM BROMIDE HFA 17 MCG/PUFF 200 PUFF/12.9 GM MDI IH SCH (12:00)
[2017-06-06] MEDS: LEVOFLOXACIN 500 MG/D5W RTU 500 MG/100 ML RTUPB IV SCH (12:01)
[2017-06-06] MEDS: NORMAL SALINE 10 ML SDV (SCHEDULED) IV SCH ×2 (12:02→21:04)
[2017-06-06] MEDS: CIPROFLOXACIN-HC OTIC SUSP 10 ML AD SCH ×2 (12:02→21:05)
[2017-06-06] MEDS: CYCLOBENZAPRINE HCL 10 MG TABLET PO PRN (17:48)
--- NOTE | 2017-06-06 18:42 | PDOC PROGRESS REPORT ---
Subjective Progress Note for:: 06/06/17 Subjective:: Patient seems to be doing better with gradual improvement. Pt is denying any chest arm or neck discomfort. Patient denying any PND, orthopnea. Patient denied any sustained palpitations, dizziness, syncope, near syncope. Patient denying any fever chills. Patient denying any other significant discomfort. Patient still has shortness of breath but is significantly improved. Patient is maintaining sinus rhythm. Review of systems: Rest review of systems negative. Medications: Medications have been reviewed. Physical Exam Vital Signs: Temp Pulse Resp BP Pulse Ox 98.2 F 96 18 124/74 97 06/06/17 12:08 06/06/17 16:19 06/06/17 16:19 06/06/17 12:08 06/06/17 16:19 Pulse Oximeter Continuous Start: 05/31/17 12: 44 Freq: RTQ4 Status: Active Document 06/06/17 16:19 [facility] (Rec: 06/06/17 17:31 [facility] [email or web address]) Pulse Oximetry Assessment Oxygen Saturation (92-100) 97 Oxygen Delivery Method Room Air Fraction of Inspired Oxygen (FIO2) 21 Equipment Usage Equipment in Use Continuous SpO2 Machine # [id number] Intake & Output 06/05/17 06/06/17 06/07/17 06:59 06:59 06:59 Intake Total 2266 980 150 Balance 2266 980 150 Weight 76.1 kg 75.8 kg Exam: GENERAL: well-nourished and in no acute distress. Alert and oriented x3 HEAD: Atraumatic, normocephalic. EYES: Pupils equal round and reactive to light, extraocular movements intact, sclera anicteric, conjunctiva are normal. ENT: TMs normal, nares patent, oropharynx clear without exudates. Moist mucous membranes. No oral ulcerations or bleeding gums noted NECK: supple without lymphadenopathy. Trachea is central. No cervical or axillary lymphadenopathy noted. Carotids are 2+, JVD WNL LUNGS: Respiration seems nonlabored, no significant accessory muscle action noted. Mild bilateral wheezes rales or rhonchi noted. No significant dullness noted on percussion. Lung findings seems improved from yesterday. CHEST: Palpation of the chest wall shows no significant chest wall tenderness. No other significant abnormalities noted. HEART: [place] [employer], No PSH, 1/6 MEHRDAD aortic area, 1/6 liao systolic murmur mitral area, no rubs, no gallops. ABDOMEN: Soft, no significant tenderness appreciated, normoactive bowel sounds. No guarding, no rebound. No rigidity noted . No masses appreciated. EXTREMITIES: Pedal pulses are 1-2+, no calf tenderness noted. No clubbing or cyanosis. Trace pedal edema noted NEUROLOGICAL: Focused neurological exam showed no significant neurologic deficit. Normal speech, no focal weakness appreciated. PSYCH: Normal mood, normal affect. Judgment and insight within normal limits. SKIN: No significant ecchymosis, rash, ulcerations or signs of pruritus noted. MUSCULOSKELETAL EXAM: No significant joint swelling noted. Results Laboratory Results: 06/06/17 05:00 06/06/17 05:00 06/06/17 06/06/17 05:00 05:00 WBC 7.3 RBC 5.00 Hgb 9.6 L Hct 30.8 L MCV 62 L MCH 19.2 L MCHC 31.2 L RDW 19.6 H Plt Count 399 Sodium 137.0 Potassium 4.4 Chloride 101 Carbon Dioxide 24 Anion Gap 12 BUN 26 H Creatinine 0.82 Est GFR ( Amer) > 60 Est GFR (Non-Af Amer) > 60 Glucose 111 H Calcium 9.6 Triglycerides 93 Cholesterol 172.39 LDL Cholesterol Direct 92 VLDL Cholesterol 19.0 HDL Cholesterol 66 06/02/17 10:55 Sputum Gram Stain - Final 06/02/17 10:55 Sputum Sputum Culture - Final Pseudomonas Stutzeri Reduced Normal Pascale 05/31/17 06/01/17 06/01/17 08:30 05:29 05:29 Creatine Kinase 166 H Troponin I 0.373 NT-Pro-B Natriuret Pep 2150 H 06/05/17 12:45 Creatine Kinase Troponin I NT-Pro-B Natriuret Pep 1090 H EKG Comments: Telemetry strips reviewed showed sinus rhythm and intermittent sinus tachycardia. Impressions: Chest CT 05/31/17 00:00 IMPRESSION: NORMAL CT OF THE CHEST WITH IV CONTRAST. Facial Bones CT 05/31/17 00:00 IMPRESSION: Mild sinus disease. Chest X-Ray 06/01/17 08:38 IMPRESSION: NO SIGNIFICANT RADIOGRAPHIC FINDING IN THE CHEST. Guidance Fluoroscopy 06/04/17 00:00 IMPRESSION: SUCCESSFUL PLACEMENT OF A 5 FR DUAL LUMEN 32 CM PICC IN THE RIGHT BASILIC VEIN. Interventional Vascular Procedure 06/04/17 00:00 IMPRESSION: SUCCESSFUL PLACEMENT OF A 5 FR DUAL LUMEN 32 CM PICC IN THE RIGHT BASILIC VEIN. PICC Line Insertion 06/04/17 00:00 IMPRESSION: SUCCESSFUL PLACEMENT OF A 5 FR DUAL LUMEN 32 CM PICC IN THE RIGHT BASILIC VEIN. Assessment & Plan - Diagnosis (1) Elevated troponin Is this a current diagnosis for this admission?: Yes (2) Chest pain Qualifiers: Chest pain type: unspecified Qualified Code(s): R07.9 - Chest pain, unspecified Is this a current diagnosis for this admission?: Yes (3) COPD exacerbation Is this a current diagnosis for this admission?: Yes (4) Daytime hypersomnolence Is this a current diagnosis for this admission?: Yes (5) Tobacco abuse Is this a current diagnosis for this admission?: Yes - Notes Notes: Nuclear stress test procedure discussed. This is scheduled for tomorrow. Elevated troponin I: This elevation was in the non-STEMI range. Exact etiology not clear but could well be COPD exacerbation, hypoxemia etc. recommend stress test prior to discharge. Wheezing seems improved therefore put her on the list for stress test. Chest pain: Chest pain preceded recent admission by few days. There are multiple differential diagnosis. To be evaluated further with a nuclear stress test. Differential diagnosis includes cardiac ischemic pain, gastroesophageal reflux, anxiety panic disorder, musculoskeletal pain etc. COPD with exacerbation: This is a significant problem and currently patient having active wheezing. Daytime sleepiness: Possibly related to underlying sleep apnea syndrome. To be evaluated further as an outpatient. Tobacco abuse: Continue with nicotine patch. - Time Time with patient: 15-25 minutes - CODE STATUS was discussed, patient remains full code. Surrogate decision-maker unchanged. Multiple medical problems were addressed. More than 50% of the time spent coordinating care, discussing management plans with involved caregivers. Management plans discussed with involved personnels. Medical decision making was of moderate to high complexity , patient's has multiple comorbidities.
[2017-06-06] MEDS: ATORVASTATIN CALCIUM 40 MG TABLET PO SCH (21:03)
[2017-06-07] MEDS: BENZONATATE 100 MG CAPSULE PO SCH ×3 (01:17→17:32)
[2017-06-07] MEDS: METHYLPREDNISOLONE INJ 125 MG/2 ML SDV IV SCH ×2 (01:17→11:12)
[2017-06-07] MEDS: NORMAL SALINE 10 ML SDV (AFTER EACH USE) IV PRN ×2 (01:21→05:00)
[2017-06-07] MEDS: HYDROCODONE/ACETAMINOPHEN 5-325 MG TABLET PO PRN ×3 (01:21→20:32)
[2017-06-07] MEDS: HEPARIN SOD (PORCINE) 5,000 UNIT/ML 1 ML SYRINGE SUBCUT SCH ×3 (05:00→21:31)
[2017-06-07] MEDS: ONDANSETRON HCL INJ/PF 4 MG/2 ML SDV IV SCH ×3 (05:00→21:34)
[2017-06-07] MEDS: CEFTRIAXONE 1 GM/D5W RTU 1 GM/50 ML RTUPB IV SCH (05:01)
[2017-06-07] MEDS: LORATADINE/PSEUDOEPHEDRINE SUL 10-240 MG TAB.SR.24H PO SCH ×2 (05:01→17:32)
[2017-06-07] MEDS: CYCLOBENZAPRINE HCL 10 MG TABLET PO PRN (05:14)
[2017-06-07] MEDS: IPRATROPIUM/ALBUTEROL 0.5-2.5 MG/3 ML AMPUL NEB SCH ×4 (08:00→20:13)
--- NOTE | 2017-06-07 10:31 | PDOC PROGRESS REPORT ---
Subjective Progress Note for:: 06/07/17 Subjective:: Patient seems to be doing better with gradual improvement. Pt is denying any chest arm or neck discomfort. Patient denying any PND, orthopnea. Patient denied any sustained palpitations, dizziness, syncope, near syncope. Patient denying any fever chills. Patient denying any other significant discomfort. Patient still has shortness of breath but is significantly improved. Patient was walked on the floor with oxygen monitor. After walking approximately 30 yards, patient became tachycardic and was very shaky. Oximetry information pending. Patient did get injected for rest imaging. Will complete rest imaging today. Hopefully patient will be able to complete stress testing tomorrow. Patient is maintaining sinus rhythm. Review of systems: Rest review of systems negative. Medications: Medications have been reviewed. Physical Exam Vital Signs: Temp Pulse Resp BP Pulse Ox 98.4 F 105 H 20 122/83 95 06/07/17 07:28 06/07/17 08:00 06/07/17 08:00 06/07/17 07:28 06/07/17 08:00 Pulse Oximeter Continuous Start: 05/31/17 12: 44 Freq: RTQ4 Status: Active Document 06/07/17 08:00 LDA (Rec: 06/07/17 10:06 LDA [email or web address]) Pulse Oximetry Assessment Oxygen Saturation (92-100) 94 Oxygen Delivery Method Room Air Fraction of Inspired Oxygen (FIO2) 21 Equipment Usage Equipment in Use Continuous SpO2 Machine # 11 Intake & Output 06/06/17 06/07/17 06/08/17 06:59 06:59 06:59 Intake Total 980 849 Balance 980 849 Weight 75.8 kg 76.2 kg Exam: GENERAL: well-nourished and in no acute distress. Alert and oriented x3 HEAD: Atraumatic, normocephalic. EYES: Pupils equal round and reactive to light, extraocular movements intact, sclera anicteric, conjunctiva are normal. ENT: TMs normal, nares patent, oropharynx clear without exudates. Moist mucous membranes. No oral ulcerations or bleeding gums noted NECK: supple without lymphadenopathy. Trachea is central. No cervical or axillary lymphadenopathy noted. Carotids are 2+, JVD WNL LUNGS: Respiration seems nonlabored, no significant accessory muscle action noted. Ear entry seems better with reduced wheezes rales or rhonchi noted. No significant dullness noted on percussion. CHEST: Palpation of the chest wall shows no significant chest wall tenderness. No other significant abnormalities noted. HEART: [place] [employer], No PSH, 1/6 MEHRDAD aortic area, 1/6 liao systolic murmur mitral area, no rubs, no gallops. ABDOMEN: Soft, no significant tenderness appreciated, normoactive bowel sounds. No guarding, no rebound. No rigidity noted . No masses appreciated. EXTREMITIES: Pedal pulses are 1-2+, no calf tenderness noted. No clubbing or cyanosis. Negative pedal edema noted NEUROLOGICAL: Focused neurological exam showed no significant neurologic deficit. Normal speech, no focal weakness appreciated. PSYCH: Normal mood, normal affect. Judgment and insight within normal limits. SKIN: No significant ecchymosis, rash, ulcerations or signs of pruritus noted. MUSCULOSKELETAL EXAM: No significant joint swelling noted. Results Laboratory Results: 06/06/17 05:00 06/06/17 05:00 06/06/17 22:42 Sputum M.tuberculosis Complex Susceptibil - Final Not Reportable 06/06/17 22:42 Sputum M.tuberculosis Complex Susceptibil - Final Not Reportable 06/06/17 22:42 Sputum M.tuberculosis Complex Susceptibil - Final Not Reportable 06/06/17 22:42 Sputum M.tuberculosis Complex Suscept Conf - Final Not Reportable 06/06/17 22:42 Sputum AFB Susceptibiility Rapid Grower - Final Not Reportable 06/02/17 10:55 Sputum Gram Stain - Final 06/02/17 10:55 Sputum Sputum Culture - Final Pseudomonas Stutzeri Reduced Normal Pascale 05/31/17 06/01/17 06/01/17 08:30 05:29 05:29 Creatine Kinase 166 H Troponin I 0.373 NT-Pro-B Natriuret Pep 2150 H 06/05/17 12:45 Creatine Kinase Troponin I NT-Pro-B Natriuret Pep 1090 H EKG Comments: Sinus rhythm with intermittent sinus tachycardia Impressions: Chest CT 05/31/17 00:00 IMPRESSION: NORMAL CT OF THE CHEST WITH IV CONTRAST. Facial Bones CT 05/31/17 00:00 IMPRESSION: Mild sinus disease. Chest X-Ray 06/01/17 08:38 IMPRESSION: NO SIGNIFICANT RADIOGRAPHIC FINDING IN THE CHEST. Guidance Fluoroscopy 06/04/17 00:00 IMPRESSION: SUCCESSFUL PLACEMENT OF A 5 FR DUAL LUMEN 32 CM PICC IN THE RIGHT BASILIC VEIN. Interventional Vascular Procedure 06/04/17 00:00 IMPRESSION: SUCCESSFUL PLACEMENT OF A 5 FR DUAL LUMEN 32 CM PICC IN THE RIGHT BASILIC VEIN. PICC Line Insertion 06/04/17 00:00 IMPRESSION: SUCCESSFUL PLACEMENT OF A 5 FR DUAL LUMEN 32 CM PICC IN THE RIGHT BASILIC VEIN. Assessment & Plan - Diagnosis (1) Elevated troponin Is this a current diagnosis for this admission?: Yes (2) Chest pain Qualifiers: Chest pain type: unspecified Qualified Code(s): R07.9 - Chest pain, unspecified Is this a current diagnosis for this admission?: Yes (3) COPD exacerbation Is this a current diagnosis for this admission?: Yes (4) Daytime hypersomnolence Is this a current diagnosis for this admission?: Yes (5) Tobacco abuse Is this a current diagnosis for this admission?: Yes - Notes Notes: Elevated troponin I: This elevation was in the non-STEMI range. Exact etiology not clear but could well be COPD exacerbation, hypoxemia etc. patient noted to be short of breath. Patient did have a rest injection of technetium sestamibi. Will complete rest imaging today and will try to do a stress test tomorrow. Chest pain: Chest pain preceded recent admission by few days. There are multiple differential diagnosis. To be evaluated further with a nuclear stress test. Differential diagnosis includes cardiac ischemic pain, gastroesophageal reflux, anxiety panic disorder, musculoskeletal pain etc. COPD with exacerbation: This is a significant problem and currently patient having active wheezing. Daytime sleepiness: Possibly related to underlying sleep apnea syndrome. To be evaluated further as an outpatient. Tobacco abuse: Continue with nicotine replacement therapy. - Time Time with patient: 15-25 minutes - CODE STATUS was discussed, patient remains full code. Surrogate decision-maker unchanged. Multiple medical problems were addressed. More than 50% of the time spent coordinating care, discussing management plans with involved caregivers. Management plans discussed with involved personnels. Medical decision making was of moderate to high complexity , patient's has multiple comorbidities. Medications reviewed and adjusted accordingly: Yes
[2017-06-07] MEDS: GUAIFENESIN 600 MG TABLET.SA PO SCH ×2 (11:14→21:26)
[2017-06-07] MEDS: NYSTATIN 500000 UNIT/5 ML UDCUP PO SCH ×4 (11:15→21:39)
[2017-06-07] MEDS: CIPROFLOXACIN-HC OTIC SUSP 10 ML AD SCH ×2 (11:16→21:38)
[2017-06-07] MEDS: IPRATROPIUM BROMIDE HFA 17 MCG/PUFF 200 PUFF/12.9 GM MDI IH SCH (11:17)
[2017-06-07] MEDS: TIOTROPIUM BROMIDE DPI 5 CAP/KIT (18 MCG/CAP) IH SCH (11:18)
[2017-06-07] MEDS: LEVOFLOXACIN 500 MG/D5W RTU 500 MG/100 ML RTUPB IV SCH (11:20)
[2017-06-07] MEDS: NORMAL SALINE 10 ML SDV (SCHEDULED) IV SCH ×2 (11:20→21:39)
[2017-06-07] MEDS ORDERED: IBUPROFEN 600 MG TABLET PO PRN (11:32)
--- NOTE | 2017-06-07 11:38 | PDOC PROGRESS REPORT ---
Subjective Progress Note for:: 06/07/17 Subjective:: Patient is seen on morning rounds, resting comfortably while on supplemental oxygen via nasal cannula 2 L/min. She is noted to be maintaining her saturations well conversational at greater than 96% without labored respirations. She was placed on room air and continued to maintain saturations while conversational. Discussed with patient and nursing need to obtain ambulatory room air saturation. She reports continued dyspnea at rest and frequently discusses her pulse ox reading stating that she becomes concerned when it trends down into the mid 90s and so places herself onto BiPAP or self increases her oxygen to compensate. She reports continued severe dyspnea with minimal exertion, however, has been ambulatory to the restroom while on room air. She reports continued chest discomfort described as sharp and stabbing that worsens with cough and deep breathing. Overall, she is much improved from yesterday. She has no new questions or concerns. Physical Exam Vital Signs: Temp Pulse Resp BP Pulse Ox 98.4 F 105 H 20 122/83 95 06/07/17 07:28 06/07/17 08:00 06/07/17 08:00 06/07/17 07:28 06/07/17 08:00 Pulse Oximeter Continuous Start: 05/31/17 12: 44 Freq: RTQ4 Status: Active Document 06/07/17 08:00 ANGELY (Rec: 06/07/17 10:06 LDA [email or web address]) Pulse Oximetry Assessment Oxygen Saturation (92-100) 94 Oxygen Delivery Method Room Air Fraction of Inspired Oxygen (FIO2) 21 Equipment Usage Equipment in Use Continuous SpO2 Machine # 11 Intake & Output 06/06/17 06/07/17 06/08/17 06:59 06:59 06:59 Intake Total 980 849 Balance 980 849 Weight 75.8 kg 76.2 kg General appearance: PRESENT: no acute distress, well-developed, well-nourished Head exam: PRESENT: atraumatic, normocephalic Eye exam: PRESENT: conjunctiva pink, EOMI, PERRLA. ABSENT: scleral icterus Ear exam: PRESENT: normal external ear exam Mouth exam: PRESENT: moist, tongue midline Neck exam: ABSENT: carotid bruit, JVD, lymphadenopathy, thyromegaly Respiratory exam: PRESENT: clear to auscultation daniel, symmetrical, tachypnea, wheezes - Slight expiratory wheezing; significant improvements from yesterday. ABSENT: rales, rhonchi Cardiovascular exam: PRESENT: RRR, +S1, +S2, tachycardia. ABSENT: diastolic murmur, rubs, systolic murmur Pulses: PRESENT: normal dorsalis pedis pul Vascular exam: PRESENT: normal capillary refill GI/Abdominal exam: PRESENT: normal bowel sounds, soft. ABSENT: distended, guarding, mass, organolmegaly, rebound, tenderness Rectal exam: PRESENT: deferred Extremities exam: PRESENT: full ROM. ABSENT: calf tenderness, clubbing, pedal edema Neurological exam: PRESENT: alert, awake, oriented to person, oriented to place , oriented to time, oriented to situation, CN II-XII grossly intact. ABSENT: motor sensory deficit Psychiatric exam: PRESENT: appropriate affect, normal mood. ABSENT: homicidal ideation, suicidal ideation Skin exam: PRESENT: dry, intact, warm. ABSENT: cyanosis, rash Results Laboratory Results: 06/06/17 05:00 06/06/17 05:00 06/06/17 22:42 Sputum M.tuberculosis Complex Susceptibil - Final Not Reportable 06/06/17 22:42 Sputum M.tuberculosis Complex Susceptibil - Final Not Reportable 06/06/17 22:42 Sputum M.tuberculosis Complex Susceptibil - Final Not Reportable 06/06/17 22:42 Sputum M.tuberculosis Complex Suscept Conf - Final Not Reportable 06/06/17 22:42 Sputum AFB Susceptibiility Rapid Grower - Final Not Reportable 06/02/17 10:55 Sputum Gram Stain - Final 06/02/17 10:55 Sputum Sputum Culture - Final Pseudomonas Stutzeri Reduced Normal Pascale 05/31/17 06/01/17 06/01/17 08:30 05:29 05:29 Creatine Kinase 166 H Troponin I 0.373 NT-Pro-B Natriuret Pep 2150 H 06/05/17 12:45 Creatine Kinase Troponin I NT-Pro-B Natriuret Pep 1090 H Impressions: Chest CT 05/31/17 00:00 IMPRESSION: NORMAL CT OF THE CHEST WITH IV CONTRAST. Facial Bones CT 05/31/17 00:00 IMPRESSION: Mild sinus disease. Chest X-Ray 06/01/17 08:38 IMPRESSION: NO SIGNIFICANT RADIOGRAPHIC FINDING IN THE CHEST. Guidance Fluoroscopy 06/04/17 00:00 IMPRESSION: SUCCESSFUL PLACEMENT OF A 5 FR DUAL LUMEN 32 CM PICC IN THE RIGHT BASILIC VEIN. Interventional Vascular Procedure 06/04/17 00:00 IMPRESSION: SUCCESSFUL PLACEMENT OF A 5 FR DUAL LUMEN 32 CM PICC IN THE RIGHT BASILIC VEIN. PICC Line Insertion 06/04/17 00:00 IMPRESSION: SUCCESSFUL PLACEMENT OF A 5 FR DUAL LUMEN 32 CM PICC IN THE RIGHT BASILIC VEIN. Assessment & Plan - Diagnosis (1) Acute respiratory failure Qualifiers: Respiratory failure complication: hypoxia and hypercapnia Qualified Code(s) : J96.01 - Acute respiratory failure with hypoxia; J96.02 - Acute respiratory failure with hypercapnia; J96.02 - Acute respiratory failure with hypercapnia; J96.02 - Acute respiratory failure with hypercapnia Is this a current diagnosis for this admission?: Yes Plan: She was admitted with acute on chronic respiratory failure secondary to COPD exacerbation. She has had progressive improvement in her respiratory status now requiring BiPAP only periodically throughout the day and at night. She does continue to have a productive cough and dyspnea with exertion. Final blood cultures: no growth Sputum culture: liao sensitive Pseudomonas stutzeri Plan discussed with Dr. Bean today. 1- Supplemental oxygen to keep O2 sats greater than 90% 2- BiPAP nightly and as needed 3- Albuterol and DuoNeb's as needed 4- Continue IV Solu-Medrol 5- Appreciate Pulmonology consultation and recommendations 6- Continue IV Levaquin through tomorrow (Currently day 6) (2) COPD exacerbation Is this a current diagnosis for this admission?: Yes Plan: Plan as above. (3) Respiratory distress Is this a current diagnosis for this admission?: Yes Plan: Respiratory status with noted improvement after discontinuing IV fluids and provide a one-time dose of Lasix. Repeat proBNP trending down (2150-->1090). D -dimer negative. Echocardiogram completed. Plan as above. (4) Chest pain Qualifiers: Chest pain type: unspecified Qualified Code(s): R07.9 - Chest pain, unspecified Is this a current diagnosis for this admission?: Yes Plan: Patient reports intermittent chest pain described as heaviness and tightness. Pain is not appreciably worsened by activity, however does improve with rest and BiPAP use. Of note, patient reports that the chest pain precipitated her respiratory difficulties. Admission labs did show an initial upward trend of troponin from 0.050 to 0.373. Echocaradiogram completed. D-dimer negative. Pt reports an aspirin allergy; otherwise will start her on a Statin. 1- Appreciate cardiology consultation and recommendations 2- Stress test pending 3- Atorvastatin qHS 4- Remain on telemetry (5) Elevated troponin Is this a current diagnosis for this admission?: Yes Plan: Elevated troponin of uncertain etiology (0.050--> 0.373); patient presented with acute respiratory failure secondary to COPD exacerbation. However, she does have risk factors for coronary artery disease. Apperciate Dr. Wynn's recommendations. She has an aspirin allergy and so will be unable to start ASA. Started on statin. Echocardiogram completed. Will require a stress test prior to discharge. 1- Plan as above. (6) Sinusitis Qualifiers: Sinusitis location: frontal Chronicity: chronic Qualified Code(s): J32.1 - Chronic frontal sinusitis Is this a current diagnosis for this admission?: Yes Plan: Currently on broad-spectrum antibiotics; will not require antibiotics at discharge for chronic sinusitis. Will benefit primarily from symptomatic treatment such as occasional NSAID, decongestant use, and nasal flushing such as that by a Krystle pot. (7) Tobacco abuse Is this a current diagnosis for this admission?: Yes Plan: Smoking cessation advised, patient declines nicotine replacement therapy at this time. (8) Costochondral pain Is this a current diagnosis for this admission?: Yes Plan: 1- NSAIDs for pain with Oxycodone for breakthrough pain - Time Time Spent with patient: 25-34 minutes Smoking Cessation Education: 3 to 10 minutes Medications reviewed and adjusted accordingly: Yes Anticipated discharge: Home - Inpatient Certification Based on my medical assessment, after consideration of the patient's comorbidities, presenting symptoms, or acuity I expect that the services needed warrant INPATIENT care.: Yes I certify that my determination is in accordance with my understanding of Medicare's requirements for reasonable and necessary INPATIENT services [42 CFR 412.3e].: Yes Medical Necessity: Need for Nebulizer Therapy and Monitoring of Response, Need for IV Antibiotics
--- NOTE | 2017-06-07 12:34 | PDOC PROGRESS REPORT ---
Subjective Progress Note for:: 06/07/17 - acute/chronic resp failure Subjective:: Patient states that she desaturates without oxygen however this could not be verified by RT or nursing staff Physical Exam Vital Signs: Temp Pulse Resp BP Pulse Ox 98.6 F 99 16 136/93 H 96 06/07/17 10:23 06/07/17 12:07 06/07/17 12:07 06/07/17 10:23 06/07/17 12:07 Pulse Oximeter Continuous Start: 05/31/17 12: 44 Freq: RTQ4 Status: Active Document 06/07/17 12:07 LDA (Rec: 06/07/17 12:22 LDA [email or web address]) Pulse Oximetry Assessment Oxygen Saturation (92-100) 96 Oxygen Delivery Method Room Air Fraction of Inspired Oxygen (FIO2) 21 Equipment Usage Equipment in Use Continuous SpO2 Machine # 11 Intake & Output 06/06/17 06/07/17 06/08/17 06:59 06:59 06:59 Intake Total 980 849 Balance 980 849 Weight 75.8 kg 76.2 kg General appearance: PRESENT: no acute distress, cooperative, disheveled, thin, well-developed Head exam: PRESENT: atraumatic, normocephalic Eye exam: PRESENT: conjunctiva pale, EOMI Mouth exam: PRESENT: dry mucosa, neck supple, tongue midline Neck exam: ABSENT: carotid bruit, JVD, lymphadenopathy, thyromegaly Respiratory exam: PRESENT: decreased breath sounds, prolonged expiratory phas, rhonchi, symmetrical, unlabored, wheezes. ABSENT: accessory muscle use, chest wall tenderness, clear to auscultation daniel, crackles, rales, retraction, stridor , tachypnea Cardiovascular exam: PRESENT: RRR, +S1, +S2, tachycardia. ABSENT: bradycardia, irregular rhythm Pulses: PRESENT: normal radial pulses GI/Abdominal exam: PRESENT: normal bowel sounds, soft. ABSENT: distended, guarding, mass, organolmegaly, rebound, tenderness Extremities exam: PRESENT: full ROM. ABSENT: calf tenderness, clubbing, joint swelling, pedal edema, tenderness Musculoskeletal exam: PRESENT: ambulatory. ABSENT: deformity, dislocation, tenderness Neurological exam: PRESENT: alert, awake Psychiatric exam: PRESENT: normal mood Skin exam: PRESENT: dry, warm Results Laboratory Results: 06/06/17 05:00 06/06/17 05:00 06/06/17 22:42 Sputum M.tuberculosis Complex Susceptibil - Final Not Reportable 06/06/17 22:42 Sputum M.tuberculosis Complex Susceptibil - Final Not Reportable 06/06/17 22:42 Sputum M.tuberculosis Complex Susceptibil - Final Not Reportable 06/06/17 22:42 Sputum M.tuberculosis Complex Suscept Conf - Final Not Reportable 06/06/17 22:42 Sputum AFB Susceptibiility Rapid Grower - Final Not Reportable 06/02/17 10:55 Sputum Gram Stain - Final 06/02/17 10:55 Sputum Sputum Culture - Final Pseudomonas Stutzeri Reduced Normal Pascale 05/31/17 06/01/17 06/01/17 08:30 05:29 05:29 Creatine Kinase 166 H Troponin I 0.373 NT-Pro-B Natriuret Pep 2150 H 06/05/17 12:45 Creatine Kinase Troponin I NT-Pro-B Natriuret Pep 1090 H Impressions: Chest CT 05/31/17 00:00 IMPRESSION: NORMAL CT OF THE CHEST WITH IV CONTRAST. Facial Bones CT 05/31/17 00:00 IMPRESSION: Mild sinus disease. Chest X-Ray 06/01/17 08:38 IMPRESSION: NO SIGNIFICANT RADIOGRAPHIC FINDING IN THE CHEST. Guidance Fluoroscopy 06/04/17 00:00 IMPRESSION: SUCCESSFUL PLACEMENT OF A 5 FR DUAL LUMEN 32 CM PICC IN THE RIGHT BASILIC VEIN. Interventional Vascular Procedure 06/04/17 00:00 IMPRESSION: SUCCESSFUL PLACEMENT OF A 5 FR DUAL LUMEN 32 CM PICC IN THE RIGHT BASILIC VEIN. PICC Line Insertion 06/04/17 00:00 IMPRESSION: SUCCESSFUL PLACEMENT OF A 5 FR DUAL LUMEN 32 CM PICC IN THE RIGHT BASILIC VEIN. Assessment & Plan - Diagnosis (1) COPD exacerbation Is this a current diagnosis for this admission?: Yes Plan: Continues to improve 6 minute walk without oxygen (2) Respiratory distress Is this a current diagnosis for this admission?: No (3) Tobacco abuse Is this a current diagnosis for this admission?: Yes Plan: transdermal nicotine (4) Sinusitis Qualifiers: Sinusitis location: frontal Chronicity: chronic Qualified Code(s): J32.1 - Chronic frontal sinusitis Is this a current diagnosis for this admission?: Yes Plan: [id number] (5) Weight loss Is this a current diagnosis for this admission?: Yes Plan: Pulmonary cachexia? (6) Daytime hypersomnolence Is this a current diagnosis for this admission?: Yes Plan: Please schedule for sleep study at the time of discharge
[2017-06-07] MEDS: VERAPAMIL HCL 80 MG TABLET PO SCH ×2 (13:43→21:26)
[2017-06-07] MEDS: METHYLPREDNISOLONE INJ 40 MG/1 ML SDV IV SCH (17:30)
[2017-06-07] MEDS: ATORVASTATIN CALCIUM 40 MG TABLET PO SCH (21:26)
[2017-06-08] MEDS: BENZONATATE 100 MG CAPSULE PO SCH ×3 (02:02→17:05)
[2017-06-08] MEDS: METHYLPREDNISOLONE INJ 40 MG/1 ML SDV IV SCH ×2 (02:02→09:40)
[2017-06-08] MEDS: HYDROCODONE/ACETAMINOPHEN 5-325 MG TABLET PO PRN ×2 (04:00→15:20)
[2017-06-08] MEDS: LORATADINE/PSEUDOEPHEDRINE SUL 10-240 MG TAB.SR.24H PO SCH ×2 (05:45→17:05)
[2017-06-08] MEDS: HEPARIN SOD (PORCINE) 5,000 UNIT/ML 1 ML SYRINGE SUBCUT SCH ×3 (05:45→22:11)
[2017-06-08] MEDS: ONDANSETRON HCL INJ/PF 4 MG/2 ML SDV IV SCH ×3 (05:45→22:11)
[2017-06-08] MEDS: VERAPAMIL HCL 80 MG TABLET PO SCH ×3 (05:48→22:10)
[2017-06-08 06:13] LABS: HEMOGLOBIN 9.5 g/dL (12.0-15.5); HGB HCT DIFFERENCE -1.5; MEAN CORPUSCULAR HEMOGLOBIN 19.6 pg (27.0-33.4); MEAN CORPUSCULAR HGB CONC 31.6 g/dL (32.0-36.0); MEAN CORPUSCULAR VOLUME 62 fl (80-97); RED BLOOD COUNT 4.85 10^6/uL (3.72-5.28); RED CELL DISTRIBUTION WIDTH 19.3 % (11.5-14.0); WHITE BLOOD COUNT 9.3 10^3/uL (4.0-10.5)
[2017-06-08 06:28] LABS: ANION GAP 7 (5-19); BLOOD UREA NITROGEN 22 mg/dL (7-20); CALCIUM 8.8 mg/dL (8.4-10.2); CARBON DIOXIDE 27 mmol/L (22-30); CHLORIDE 104 mmol/L (98-107); CREATININE RESULT 0.69 mg/dL (0.52-1.25); GLUCOSE 110 mg/dL (75-110); POTASSIUM 4.4 mmol/L (3.6-5.0)
[2017-06-08] MEDS: IPRATROPIUM/ALBUTEROL 0.5-2.5 MG/3 ML AMPUL NEB SCH ×4 (08:11→20:07)
--- NOTE | 2017-06-08 09:14 | PDOC PROGRESS REPORT ---
Subjective Progress Note for:: 06/08/17 - acute/chronic resp failure Subjective:: Patient iimproved Physical Exam Vital Signs: Temp Pulse Resp BP Pulse Ox 97.9 F 93 18 138/87 H 97 06/08/17 08:02 06/08/17 08:14 06/08/17 08:14 06/08/17 08:02 06/08/17 08:14 Pulse Oximeter Continuous Start: 05/31/17 12: 44 Freq: RTQ4 Status: Active Document 06/08/17 08:14 JDR (Rec: 06/08/17 08:15 JDR [email or web address]) Pulse Oximetry Assessment Oxygen Saturation (92-100) 97 Oxygen Delivery Method Room Air Fraction of Inspired Oxygen (FIO2) 21 Equipment Usage Equipment in Use Continuous SpO2 Machine # 11 Intake & Output 06/07/17 06/08/17 06/09/17 06:59 06:59 06:59 Intake Total 849 1627 Output Total 400 Balance 849 1227 Weight 76.2 kg 77.8 kg General appearance: PRESENT: no acute distress, cooperative, disheveled, thin, well-developed Head exam: PRESENT: atraumatic, normocephalic Eye exam: PRESENT: conjunctiva pale, EOMI Mouth exam: PRESENT: dry mucosa, neck supple, tongue midline Neck exam: ABSENT: carotid bruit, JVD, lymphadenopathy, thyromegaly Respiratory exam: PRESENT: decreased breath sounds, prolonged expiratory phas, rhonchi, symmetrical, unlabored, wheezes. ABSENT: accessory muscle use, chest wall tenderness, clear to auscultation daniel, crackles, rales, retraction, stridor , tachypnea Cardiovascular exam: PRESENT: RRR, +S1 Pulses: PRESENT: normal radial pulses GI/Abdominal exam: PRESENT: normal bowel sounds, soft. ABSENT: distended, guarding, mass, organolmegaly, rebound, tenderness Extremities exam: PRESENT: full ROM. ABSENT: calf tenderness, clubbing, joint swelling, pedal edema, tenderness Musculoskeletal exam: PRESENT: ambulatory, full ROM. ABSENT: deformity, dislocation, tenderness Neurological exam: PRESENT: alert, awake Psychiatric exam: PRESENT: normal mood Skin exam: PRESENT: dry, warm Results Laboratory Results: 06/08/17 05:40 06/08/17 05:40 06/08/17 06/08/17 05:40 05:40 WBC 9.3 RBC 4.85 Hgb 9.5 L Hct 30.0 L MCV 62 L MCH 19.6 L MCHC 31.6 L RDW 19.3 H Plt Count 372 Sodium 138.0 Potassium 4.4 Chloride 104 Carbon Dioxide 27 Anion Gap 7 BUN 22 H Creatinine 0.69 Est GFR ( Amer) > 60 Est GFR (Non-Af Amer) > 60 Glucose 110 Calcium 8.8 05/31/17 06/01/17 06/01/17 08:30 05:29 05:29 Creatine Kinase 166 H Troponin I 0.373 NT-Pro-B Natriuret Pep 2150 H 06/05/17 12:45 Creatine Kinase Troponin I NT-Pro-B Natriuret Pep 1090 H Impressions: Chest CT 05/31/17 00:00 IMPRESSION: NORMAL CT OF THE CHEST WITH IV CONTRAST. Facial Bones CT 05/31/17 00:00 IMPRESSION: Mild sinus disease. Chest X-Ray 06/01/17 08:38 IMPRESSION: NO SIGNIFICANT RADIOGRAPHIC FINDING IN THE CHEST. Guidance Fluoroscopy 06/04/17 00:00 IMPRESSION: SUCCESSFUL PLACEMENT OF A 5 FR DUAL LUMEN 32 CM PICC IN THE RIGHT BASILIC VEIN. Interventional Vascular Procedure 06/04/17 00:00 IMPRESSION: SUCCESSFUL PLACEMENT OF A 5 FR DUAL LUMEN 32 CM PICC IN THE RIGHT BASILIC VEIN. PICC Line Insertion 06/04/17 00:00 IMPRESSION: SUCCESSFUL PLACEMENT OF A 5 FR DUAL LUMEN 32 CM PICC IN THE RIGHT BASILIC VEIN. Assessment & Plan - Diagnosis (1) COPD exacerbation Is this a current diagnosis for this admission?: Yes Plan: Continues to improve (2) Respiratory distress Is this a current diagnosis for this admission?: No (3) Tobacco abuse Is this a current diagnosis for this admission?: Yes Plan: transdermal nicotine (4) Sinusitis Qualifiers: Sinusitis location: frontal Chronicity: chronic Qualified Code(s): J32.1 - Chronic frontal sinusitis Is this a current diagnosis for this admission?: No (5) Weight loss Is this a current diagnosis for this admission?: Yes (6) Daytime hypersomnolence Is this a current diagnosis for this admission?: Yes Plan: Please schedule for sleep study at the time of discharge
[2017-06-08] MEDS: GUAIFENESIN 600 MG TABLET.SA PO SCH ×2 (09:38→22:10)
[2017-06-08] MEDS: CIPROFLOXACIN-HC OTIC SUSP 10 ML AD SCH ×2 (09:39→22:16)
[2017-06-08] MEDS: IPRATROPIUM BROMIDE HFA 17 MCG/PUFF 200 PUFF/12.9 GM MDI IH SCH (09:39)
[2017-06-08] MEDS: TIOTROPIUM BROMIDE DPI 5 CAP/KIT (18 MCG/CAP) IH SCH (09:39)
[2017-06-08] MEDS: NORMAL SALINE 10 ML SDV (SCHEDULED) IV SCH ×2 (09:40→22:15)
[2017-06-08] MEDS: NYSTATIN 500000 UNIT/5 ML UDCUP PO SCH ×4 (09:40→22:17)
[2017-06-08] MEDS ORDERED: AMINOPHYLLINE INJ/PF 250 MG/10 ML SDV IV ONE (09:54)
[2017-06-08] MEDS ORDERED: REGADENOSON INJ 0.4 MG/5 ML DISP.SYRIN IV ONE (09:54)
[2017-06-08] MEDS: LEVOFLOXACIN 500 MG/D5W RTU 500 MG/100 ML RTUPB IV SCH (10:45)
[2017-06-08] MEDS: BUTALB/ACETAMINOPHEN/CAFFEINE 1 TAB EACH PO PRN (10:46)
--- NOTE | 2017-06-08 11:49 | DRAGON STRESS TEST REPORT ---
INTRAVENOUS LEXISCAN CARDIOLITE STRESS TEST USING SINGLE PHOTON EMMISION COMPUTERIZED TOMOGRAPHIC. DATE OF PROCEDURE: June 07, 2017 INDICATION : Abnormal troponin I CARDIAC RISK FACTORS: Hypertension, dyslipidemia, tobacco abuse RESTING EKG: Sinus rhythm, no baseline ST segment changes noted. STRESS EKG: No significant changes noted with LexiScan bolus REASON FOR TERMINATION: Protocol. PROCEDURE REPORT: Baseline heart rate 93 beats per minute with blood pressure of 140/74. Patient had no significant complaints. Heart rate at 2 minutes post bolus 108 with a blood pressure of 137/69. 3 minutes post bolus heart rate 100 with blood pressure of 132/72. No significant EKG changes were noted. Patient had no significant complaints during the procedure or postprocedure. Patient injected with Aminophyllin 75 mg at 3 minutes or later after Lexiscan bolus. CONCLUSIONS: Normal EKG and hemodynamic response to IV LexiScan. NUCLEAR DATA: At rest the patient was given 11.62 millicuries of technetium 99 sestamibi injected intravenously. As per protocol rest gated SPECT images were obtained. Subsequently the patient was given intravenous LexiScan at a dose of 0.4 mg in 5 mL intravenously, followed by flush with normal saline. Subsequently the stress dose of 32.2 millicuries of technetium 99 sestamibi was injected intravenously. As per protocol stress gated images were obtained. NUCLEAR INTERPRETATION: Both raw and processed data were used for interpretation. Visual, qualitative, computer-generated quantitative data was used. There was good myocardial uptake of technetium compound. Motion artifact and soft tissue attenuations were noted. Increased visceral uptake was noted. There is mild decreased uptake noted in the mid and distal anterior wall consistent with probable mild ischemia. No no other definitive areas of transient perfusion defect noted. No definitive areas of fixed perfusion defect or scars noted. EKG gated imaging showed LV EF at 50 %, rest and stress gated EF similar visually, borderline hypokinesia noted of the mid and distal anterior wall. T. I D. ratio was 1.07. Lung heart ratio noted to be within normal limits 0.25. No significant extracardiac and abnormal radiotracer activities were noted. RV free wall uptake was noted to be borderline increased. IMPRESSION: Also refer to comments under nuclear interpretation. Also test results needs to be interpreted in the context of pretest probability. 1. Mild ischemia noted in the mid and distal anterior wall. SDS score 3. 2. There is no definitive scintigraphic evidence of myocardial infarction/scar. 3. EKG gated imaging shows left ventricular ejection fraction of approximately 50%. 4. Clinical correlation requested as occasionally single vessel disease or balanced ischemia could be missed. In approximately 10% of the cases Lexiscan may not cause adequate vasodilatory stress. RECOMMENDATIONS: Aggressive risk factor modification, medical therapy. May consider heart catheterization if significant symptoms in spite of maximal medical therapy. Clinical correlation with echocardiogram derived ejection fraction. Inability to exercise by itself can lead to increased cardiovascular event risks. Consider cardiology consultation and or follow-up if clinically indicated. I AM AVAILABLE FOR CARDIOLOGY CONSULTATION AND FOLLOWUP IF REQUESTED BY PMD Kurtis Wynn M.D., [employer] Nursing Project Coordinator ventilation mechanic, Board certified in cardiovascular diseases, Nuclear cardiology, Echocardiography Cardiac CT and cardiac MRI Ph. [phone] [facility]ITAL[facility]argo
[2017-06-08] MEDS: NORMAL SALINE 10 ML SDV (AFTER EACH USE) IV PRN (11:51)
[2017-06-08] MEDS: IBUPROFEN 600 MG TABLET PO SCH ×2 (14:30→22:10)
--- NOTE | 2017-06-08 14:32 | PDOC PROGRESS REPORT ---
Subjective Progress Note for:: 06/08/17 Subjective:: The patient went downstairs and had a Cardiolite stress test performed today. Unfortunately it did reveal some mild reversible ischemia and wall motion abnormalities could not be ruled out. Dr. Wynn recommended transfer for possible cardiac catheterization. I spoke to a a hot blast worker in [place]. They indicated that they would not cath her emergently over the weekend and would like for me to transfer her to their facility on Sunday. They also stated that they would like for her to be more stable from a respiratory standpoint prior to that time. I discussed this today with the patient and her and all of her questions were answered. Overall the patient denies fever chills. She states that her right ear continues to feel stopped up and she has a little bit of pain under her jaw on the right. She does not have a sore throat or any sinus congestion. The patient continues to have a cough with occasional bronchospasm. She really is not bringing up much sputum. No heart palpitations but she does continue to have substernal chest pressure. She has had no nausea, vomiting or diarrhea. No dysuria, frequency or hematuria. Physical Exam Vital Signs: Temp Pulse Resp BP Pulse Ox 97.9 F 103 H 18 133/77 H 94 06/08/17 12:09 06/08/17 12:09 06/08/17 12:09 06/08/17 12:09 06/08/17 12:09 Pulse Oximeter Continuous Start: 05/31/17 12: 44 Freq: RTQ4 Status: Active Document 06/08/17 12:02 [facility] (Rec: 06/08/17 12:04 [facility] [email or web address]) Pulse Oximetry Assessment Oxygen Saturation (92-100) 97 Oxygen Delivery Method Room Air Fraction of Inspired Oxygen (FIO2) 21 Equipment Usage Equipment in Use Continuous SpO2 Machine # 11 Intake & Output 06/07/17 06/08/17 06/09/17 06:59 06:59 06:59 Intake Total 849 1627 600 Output Total 400 Balance 849 1227 600 Weight 76.2 kg 77.8 kg General appearance: PRESENT: no acute distress, well-developed, well-nourished Head exam: PRESENT: atraumatic, normocephalic Eye exam: PRESENT: conjunctiva pink, EOMI, PERRLA. ABSENT: scleral icterus Mouth exam: PRESENT: moist, tongue midline Neck exam: ABSENT: carotid bruit, JVD, lymphadenopathy, thyromegaly Respiratory exam: PRESENT: clear to auscultation daniel. ABSENT: rales, rhonchi, wheezes Cardiovascular exam: PRESENT: RRR. ABSENT: diastolic murmur, rubs, systolic murmur GI/Abdominal exam: PRESENT: normal bowel sounds, soft. ABSENT: distended, guarding, mass, organolmegaly, rebound, tenderness Extremities exam: PRESENT: full ROM. ABSENT: calf tenderness, clubbing, pedal edema Musculoskeletal exam: PRESENT: ambulatory Neurological exam: PRESENT: alert, awake, oriented to person, oriented to place , oriented to time, oriented to situation, CN II-XII grossly intact. ABSENT: motor sensory deficit Psychiatric exam: PRESENT: appropriate affect, normal mood. ABSENT: homicidal ideation, suicidal ideation Skin exam: PRESENT: abrasion Results Laboratory Results: 06/08/17 05:40 06/08/17 05:40 06/08/17 06/08/17 05:40 05:40 WBC 9.3 RBC 4.85 Hgb 9.5 L Hct 30.0 L MCV 62 L MCH 19.6 L MCHC 31.6 L RDW 19.3 H Plt Count 372 Sodium 138.0 Potassium 4.4 Chloride 104 Carbon Dioxide 27 Anion Gap 7 BUN 22 H Creatinine 0.69 Est GFR ( Amer) > 60 Est GFR (Non-Af Amer) > 60 Glucose 110 Calcium 8.8 05/31/17 06/01/17 06/01/17 08:30 05:29 05:29 Creatine Kinase 166 H Troponin I 0.373 NT-Pro-B Natriuret Pep 2150 H 06/05/17 12:45 Creatine Kinase Troponin I NT-Pro-B Natriuret Pep 1090 H Impressions: Chest CT 05/31/17 00:00 IMPRESSION: NORMAL CT OF THE CHEST WITH IV CONTRAST. Facial Bones CT 05/31/17 00:00 IMPRESSION: Mild sinus disease. Chest X-Ray 06/01/17 08:38 IMPRESSION: NO SIGNIFICANT RADIOGRAPHIC FINDING IN THE CHEST. Guidance Fluoroscopy 06/04/17 00:00 IMPRESSION: SUCCESSFUL PLACEMENT OF A 5 FR DUAL LUMEN 32 CM PICC IN THE RIGHT BASILIC VEIN. Interventional Vascular Procedure 06/04/17 00:00 IMPRESSION: SUCCESSFUL PLACEMENT OF A 5 FR DUAL LUMEN 32 CM PICC IN THE RIGHT BASILIC VEIN. PICC Line Insertion 06/04/17 00:00 IMPRESSION: SUCCESSFUL PLACEMENT OF A 5 FR DUAL LUMEN 32 CM PICC IN THE RIGHT BASILIC VEIN. Assessment & Plan - Diagnosis (1) Acute respiratory failure Qualifiers: Respiratory failure complication: hypoxia and hypercapnia Qualified Code(s) : J96.01 - Acute respiratory failure with hypoxia; J96.02 - Acute respiratory failure with hypercapnia; J96.02 - Acute respiratory failure with hypercapnia; J96.02 - Acute respiratory failure with hypercapnia Is this a current diagnosis for this admission?: Yes Plan: Resolved at this point. The patient has been weaned off of her oxygen and currently is stable on room air. Her respiratory failure was likely due to COPD exacerbation. (2) COPD exacerbation Is this a current diagnosis for this admission?: Yes Plan: Much improved. I am going to stop the patient's IV Solu-Medrol and place her on p.o. prednisone today. We will complete a quick taper. (3) Acute diastolic (congestive) heart failure Plan: The patient had an elevated BNP. She responded quite nicely and her respiratory distress improved after receiving IV Lasix. BNP is still elevated but improved. The patient has normal left ventricular function and no evidence of diastolic dysfunction on her most recent echocardiogram. I do believe the patient was having a mild diastolic congestive heart failure exacerbation in spite of her relatively normal echocardiogram. (5) Cardiac ischemia Plan: The patient had some mild reversible ischemia noted on her stress test from today. I spoke to a hot blast worker in [place]. She recommended that we trend the patient's troponins again. She did have a rise in troponins but only had 2 drawn. They are not going to cath her acutely over the weekend. They would like for us to focus on her respiratory issues for the next 2 days and transfer her to their facility for intervention on Sunday. In the meantime we will keep her on a remote monitor. I will trend her cardiac enzymes. Will place the patient on Nitropaste. We will await further recommendations from cardiology over the weekend. (6) Elevated troponin Plan: She does have a mild elevation in her troponins. This was several days ago and unfortunately only 2 were drawn. We are going to return to these at the advice of cardiology in [place]. (7) Sinusitis Qualifiers: Sinusitis location: frontal Chronicity: chronic Qualified Code(s): J32.1 - Chronic frontal sinusitis Is this a current diagnosis for this admission?: Yes Plan: Currently on Levaquin. We will complete a course of therapy. She will continue Levaquin through 06/10/2017. (8) Tobacco abuse Is this a current diagnosis for this admission?: Yes Plan: The patient quit smoking 3 weeks prior to this hospitalization. She was encouraged to keep this up when she gets out of the hospital. (9) Costochondral pain Is this a current diagnosis for this admission?: Yes Plan: I am going to schedule her ibuprofen for now. (10) Daytime hypersomnolence Is this a current diagnosis for this admission?: Yes Plan: She will need a sleep study as an outpatient. (11) Anemia Is this a current diagnosis for this admission?: Yes Plan: She has a microcytic anemia. Her hemoglobin is stable. I will obtain an anemia panel for further evaluation - Time Time Spent with patient: 25-34 minutes - Inpatient Certification Medical Necessity: Need for IV Antibiotics, Other - Inpatient hospitalization remains necessary. The patient needs to finish her IV antibiotics. She will need transfer to a facility that can perform cardiac catheterizations prior to getting out of the hospital. This will happen on Sunday.
[2017-06-08 16:02] LABS: CREATINE KINASE MB 2.96 ng/mL (<4.55); TROPONIN I 0.026 ng/mL
--- NOTE | 2017-06-08 19:14 | PDOC PROGRESS REPORT ---
Subjective Progress Note for:: 06/08/17 Subjective:: Patient seems to be doing better with gradual improvement. Patient has noted some intermittent chest discomfort. Patient did complete nuclear stress test without any complications. Patient denying any PND, orthopnea. Patient denied any sustained palpitations, dizziness, syncope, near syncope. Patient denying any fever chills. Patient denying any other significant discomfort. Patient still has shortness of breath but is significantly improved. Patient claims that for last several weeks, she had noted chest discomfort along with spells where she would become very anxious. Patient is maintaining sinus rhythm. Review of systems: Rest review of systems negative. Medications: Medications have been reviewed. Physical Exam Vital Signs: Temp Pulse Resp BP Pulse Ox 98.5 F 105 H 18 134/73 H 98 06/08/17 15:54 06/08/17 16:19 06/08/17 16:19 06/08/17 15:54 06/08/17 16:19 Pulse Oximeter Continuous Start: 05/31/17 12: 44 Freq: RTQ4 Status: Active Document 06/08/17 16:19 [facility] (Rec: 06/08/17 17:44 [facility] [email or web address]) Pulse Oximetry Assessment Oxygen Saturation (92-100) 98 Oxygen Delivery Method Room Air Fraction of Inspired Oxygen (FIO2) 21 Equipment Usage Equipment in Use Continuous SpO2 Machine # [id number] Intake & Output 06/07/17 06/08/17 06/09/17 06:59 06:59 06:59 Intake Total 849 1627 1230 Output Total 400 Balance 849 1227 1230 Weight 76.2 kg 77.8 kg Exam: GENERAL: well-nourished and in no acute distress. Alert and oriented x3 HEAD: Atraumatic, normocephalic. EYES: Pupils equal round and reactive to light, extraocular movements intact, sclera anicteric, conjunctiva are normal. ENT: TMs normal, nares patent, oropharynx clear without exudates. Moist mucous membranes. No oral ulcerations or bleeding gums noted NECK: supple without lymphadenopathy. Trachea is central. No cervical or axillary lymphadenopathy noted. Carotids are 2+, JVD WNL LUNGS: Respiration seems nonlabored, no significant accessory muscle action noted. Breath sounds clear to auscultation bilaterally and equal noted. No wheezes rales or rhonchi noted. No significant dullness noted on percussion. CHEST: Palpation of the chest wall shows no significant chest wall tenderness. No other significant abnormalities noted. 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 ABDOMEN: Soft, no significant tenderness appreciated, normoactive bowel sounds. No guarding, no rebound. No rigidity noted . No masses appreciated. EXTREMITIES: Pedal pulses are 1-2+, no calf tenderness noted. No clubbing or cyanosis.trace to 1+ pedal edema noted NEUROLOGICAL: Focused neurological exam showed no significant neurologic deficit. Normal speech, no focal weakness appreciated. PSYCH: Normal mood, normal affect. Judgment and insight within normal limits. SKIN: No significant ecchymosis, rash, ulcerations or signs of pruritus noted. MUSCULOSKELETAL EXAM: No significant joint swelling noted. Results Laboratory Results: 06/08/17 05:40 06/08/17 05:40 06/08/17 06/08/17 05:40 05:40 WBC 9.3 RBC 4.85 Hgb 9.5 L Hct 30.0 L MCV 62 L MCH 19.6 L MCHC 31.6 L RDW 19.3 H Plt Count 372 Sodium 138.0 Potassium 4.4 Chloride 104 Carbon Dioxide 27 Anion Gap 7 BUN 22 H Creatinine 0.69 Est GFR ( Amer) > 60 Est GFR (Non-Af Amer) > 60 Glucose 110 Calcium 8.8 05/31/17 06/01/17 06/01/17 08:30 05:29 05:29 Creatine Kinase 166 H CK-MB (CK-2) Troponin I 0.373 NT-Pro-B Natriuret Pep 2150 H 06/05/17 06/08/17 12:45 14:35 Creatine Kinase CK-MB (CK-2) 2.96 Troponin I 0.026 NT-Pro-B Natriuret Pep 1090 H EKG Comments: Telemetry strip showed sinus rhythm without any sustained tachycardia or bradycardia arrhythmias. Mild intermittent sinus tachycardia noted. Impressions: Chest CT 05/31/17 00:00 IMPRESSION: NORMAL CT OF THE CHEST WITH IV CONTRAST. Facial Bones CT 05/31/17 00:00 IMPRESSION: Mild sinus disease. Chest X-Ray 06/01/17 08:38 IMPRESSION: NO SIGNIFICANT RADIOGRAPHIC FINDING IN THE CHEST. Guidance Fluoroscopy 06/04/17 00:00 IMPRESSION: SUCCESSFUL PLACEMENT OF A 5 FR DUAL LUMEN 32 CM PICC IN THE RIGHT BASILIC VEIN. Interventional Vascular Procedure 06/04/17 00:00 IMPRESSION: SUCCESSFUL PLACEMENT OF A 5 FR DUAL LUMEN 32 CM PICC IN THE RIGHT BASILIC VEIN. PICC Line Insertion 06/04/17 00:00 IMPRESSION: SUCCESSFUL PLACEMENT OF A 5 FR DUAL LUMEN 32 CM PICC IN THE RIGHT BASILIC VEIN. Assessment & Plan - Diagnosis (1) Elevated troponin Is this a current diagnosis for this admission?: Yes (2) Chest pain Qualifiers: Chest pain type: unspecified Qualified Code(s): R07.9 - Chest pain, unspecified Is this a current diagnosis for this admission?: Yes (3) COPD exacerbation Is this a current diagnosis for this admission?: Yes (4) Daytime hypersomnolence Is this a current diagnosis for this admission?: Yes (5) Tobacco abuse Is this a current diagnosis for this admission?: Yes - Notes Notes: Elevated troponin I: This elevation was in the non-STEMI range. Nuclear stress test positive for distal anterior wall and mid anterior wall ischemia. This was noted to be mild. However there was corresponding regional wall motion normality is noted on gated imaging. Patient's medical management will be optimized. However since patient has significant symptoms, have recommended heart catheterization. Discussed this with hospitalist and she will be arranging this. COPD with exacerbation: This is a significant problem and currently patient improved and today was not noted to have any wheezing Daytime sleepiness: Possibly related to underlying sleep apnea syndrome. To be evaluated further as an outpatient. Tobacco abuse: Continue with nicotine replacement therapy. - Time Time with patient: Greater than 35 minutes - Patient was seen multiple times today. In the morning nuclear stress test procedure was explained. Nuclear stress test procedure was performed and subsequently later on in the day results were discussed. I also discussed management plans with the hospitalist. Overall total time spent was 45 minutes. Medications reviewed and adjusted accordingly: Yes
[2017-06-08] MEDS: CYCLOBENZAPRINE HCL 10 MG TABLET PO PRN (19:41)
[2017-06-08] MEDS: ATORVASTATIN CALCIUM 40 MG TABLET PO SCH (22:11)
[2017-06-09] MEDS: HYDROCODONE/ACETAMINOPHEN 5-325 MG TABLET PO PRN ×3 (00:06→17:47)
[2017-06-09] MEDS: BENZONATATE 100 MG CAPSULE PO SCH ×3 (02:32→17:47)
[2017-06-09] MEDS: BUTALB/ACETAMINOPHEN/CAFFEINE 1 TAB EACH PO PRN (02:34)
[2017-06-09] MEDS: LORATADINE/PSEUDOEPHEDRINE SUL 10-240 MG TAB.SR.24H PO SCH ×2 (05:32→17:47)
[2017-06-09] MEDS: CYCLOBENZAPRINE HCL 10 MG TABLET PO PRN ×2 (05:32→13:38)
[2017-06-09] MEDS: IBUPROFEN 600 MG TABLET PO SCH ×3 (05:33→22:12)
[2017-06-09] MEDS: VERAPAMIL HCL 80 MG TABLET PO SCH ×3 (05:34→22:13)
[2017-06-09] MEDS: ONDANSETRON HCL INJ/PF 4 MG/2 ML SDV IV SCH ×3 (05:35→22:23)
[2017-06-09] MEDS: HEPARIN SOD (PORCINE) 5,000 UNIT/ML 1 ML SYRINGE SUBCUT SCH ×3 (05:35→22:11)
[2017-06-09 06:24] LABS: ANION GAP 10 (5-19); BLOOD UREA NITROGEN 30 mg/dL (7-20); CALCIUM 8.7 mg/dL (8.4-10.2); CARBON DIOXIDE 24 mmol/L (22-30); CHLORIDE 106 mmol/L (98-107); CREATININE RESULT 0.78 mg/dL (0.52-1.25); GLUCOSE 80 mg/dL (75-110); MAGNESIUM 2.2 mg/dL (1.6-2.3); POTASSIUM 3.7 mmol/L (3.6-5.0)
[2017-06-09] MEDS: IPRATROPIUM/ALBUTEROL 0.5-2.5 MG/3 ML AMPUL NEB SCH ×4 (07:53→20:23)
[2017-06-09] MEDS: PREDNISONE 20 MG TABLET PO SCH (09:08)
[2017-06-09] MEDS: GUAIFENESIN 600 MG TABLET.SA PO SCH ×2 (09:08→22:15)
[2017-06-09] MEDS: CIPROFLOXACIN-HC OTIC SUSP 10 ML AD SCH ×2 (09:09→22:22)
[2017-06-09] MEDS: TIOTROPIUM BROMIDE DPI 5 CAP/KIT (18 MCG/CAP) IH SCH (09:09)
[2017-06-09] MEDS: IPRATROPIUM BROMIDE HFA 17 MCG/PUFF 200 PUFF/12.9 GM MDI IH SCH (09:09)
[2017-06-09] MEDS: LEVOFLOXACIN 500 MG/D5W RTU 500 MG/100 ML RTUPB IV SCH (09:10)
[2017-06-09] MEDS: NYSTATIN 500000 UNIT/5 ML UDCUP PO SCH ×4 (09:10→22:23)
[2017-06-09] MEDS: NORMAL SALINE 10 ML SDV (SCHEDULED) IV SCH ×2 (10:31→22:17)
[2017-06-09] MEDS: NORMAL SALINE 10 ML SDV (AFTER EACH USE) IV PRN (10:31)
--- NOTE | 2017-06-09 10:59 | PDOC PROGRESS REPORT ---
Subjective Progress Note for:: 06/09/17 Subjective:: The patient is resting in her bed. She has had no fever chills overnight. She continues to have some mild substernal chest pressure and states that she is having heartburn this morning. She has had no nausea or vomiting. She is tolerating her diet. No abdominal pain. No dysuria, frequency or hematuria. Physical Exam Vital Signs: Temp Pulse Resp BP Pulse Ox 97.9 F 88 18 109/68 96 06/09/17 07:28 06/09/17 07:55 06/09/17 07:55 06/09/17 07:28 06/09/17 07:55 Pulse Oximeter Continuous Start: 05/31/17 12: 44 Freq: RTQ4 Status: Active Document 06/09/17 07:55 JDR (Rec: 06/09/17 07:56 [id number] [email or web address]) Pulse Oximetry Assessment Oxygen Saturation (92-100) 96 Oxygen Delivery Method Room Air Fraction of Inspired Oxygen (FIO2) 21 Equipment Usage Equipment in Use Continuous SpO2 Machine # 11 Intake & Output 06/08/17 06/09/17 06/10/17 06:59 06:59 06:59 Intake Total 1627 1697 Output Total 400 Balance 1227 1697 Weight 77.8 kg 75.9 kg General appearance: PRESENT: no acute distress, well-developed, well-nourished Head exam: PRESENT: atraumatic, normocephalic Mouth exam: PRESENT: moist, tongue midline Respiratory exam: PRESENT: clear to auscultation daniel. ABSENT: rales, rhonchi, wheezes Cardiovascular exam: PRESENT: RRR. ABSENT: diastolic murmur, rubs, systolic murmur GI/Abdominal exam: PRESENT: normal bowel sounds, soft. ABSENT: distended, guarding, mass, organolmegaly, rebound, tenderness Rectal exam: PRESENT: deferred Musculoskeletal exam: PRESENT: ambulatory Neurological exam: PRESENT: alert, awake, oriented to person, oriented to place , oriented to time, oriented to situation, CN II-XII grossly intact. ABSENT: motor sensory deficit Skin exam: PRESENT: dry, intact, warm. ABSENT: cyanosis, rash Results Laboratory Results: 06/08/17 05:40 06/09/17 05:35 06/09/17 05:35 Sodium 140.0 Potassium 3.7 Chloride 106 Carbon Dioxide 24 Anion Gap 10 BUN 30 H Creatinine 0.78 Est GFR ( Amer) > 60 Est GFR (Non-Af Amer) > 60 Glucose 80 Calcium 8.7 Magnesium 2.2 05/31/17 06/01/17 06/01/17 08:30 05:29 05:29 Creatine Kinase 166 H CK-MB (CK-2) Troponin I 0.373 NT-Pro-B Natriuret Pep 2150 H 06/05/17 06/08/17 06/09/17 12:45 14:35 00:41 Creatine Kinase CK-MB (CK-2) 2.96 Troponin I 0.026 0.053 NT-Pro-B Natriuret Pep 1090 H 06/09/17 06/09/17 05:35 05:35 Creatine Kinase CK-MB (CK-2) Troponin I 0.064 NT-Pro-B Natriuret Pep 1160 H Impressions: Chest CT 05/31/17 00:00 IMPRESSION: NORMAL CT OF THE CHEST WITH IV CONTRAST. Facial Bones CT 05/31/17 00:00 IMPRESSION: Mild sinus disease. Chest X-Ray 06/01/17 08:38 IMPRESSION: NO SIGNIFICANT RADIOGRAPHIC FINDING IN THE CHEST. Guidance Fluoroscopy 06/04/17 00:00 IMPRESSION: SUCCESSFUL PLACEMENT OF A 5 FR DUAL LUMEN 32 CM PICC IN THE RIGHT BASILIC VEIN. Interventional Vascular Procedure 06/04/17 00:00 IMPRESSION: SUCCESSFUL PLACEMENT OF A 5 FR DUAL LUMEN 32 CM PICC IN THE RIGHT BASILIC VEIN. PICC Line Insertion 06/04/17 00:00 IMPRESSION: SUCCESSFUL PLACEMENT OF A 5 FR DUAL LUMEN 32 CM PICC IN THE RIGHT BASILIC VEIN. Assessment & Plan - Diagnosis (1) Acute respiratory failure Qualifiers: Respiratory failure complication: hypoxia and hypercapnia Qualified Code(s) : J96.01 - Acute respiratory failure with hypoxia; J96.02 - Acute respiratory failure with hypercapnia; J96.02 - Acute respiratory failure with hypercapnia; J96.02 - Acute respiratory failure with hypercapnia Is this a current diagnosis for this admission?: Yes Plan: Resolved at this point. The patient has been weaned off of her oxygen and currently is stable on room air. Her respiratory failure was likely due to COPD exacerbation. (2) COPD exacerbation Is this a current diagnosis for this admission?: Yes Plan: Much improved. She has been transitioned over to p.o. prednisone. We will complete a quick taper. (3) Acute diastolic (congestive) heart failure Plan: The patient had an elevated BNP. She responded quite nicely and her respiratory distress improved after receiving IV Lasix. BNP is still elevated but improved. The patient has normal left ventricular function and no evidence of diastolic dysfunction on her most recent echocardiogram. I do believe the patient was having a mild diastolic congestive heart failure exacerbation in spite of her relatively normal echocardiogram. (4) Cardiac ischemia Plan: The patient had some mild reversible ischemia noted on her stress test from yesterday. I spoke to a [employer] line in [place]. She recommended that we trend the patient's troponins again. These were slightly elevated.. They are not going to cath her acutely over the weekend. They would like for us to focus on her respiratory issues for the next 2 days and transfer her to their facility for intervention on Sunday. In the meantime we will keep her on a remote monitor. Today she is having chest pressure in complaining of heartburn. I am going to place her on some Nitropaste today. We will see if this helps. The patient is now requesting transfer to [facility] instead of [place]. Again I do not believe that they will cath her as this is nonemergent over the weekend. We will try to pursue transfer tomorrow. (5) Elevated troponin Plan: I believe the patient had a mild non-ST elevation myocardial infarction. Again she will be transferred probably to [place] tomorrow for consideration of catheterization as there was some mild ischemia noted on her stress test. Cardiology is following here in the hospital and we certainly appreciate their input. (6) Sinusitis Qualifiers: Sinusitis location: frontal Chronicity: chronic Qualified Code(s): J32.1 - Chronic frontal sinusitis Is this a current diagnosis for this admission?: Yes Plan: Currently on Levaquin. We will complete a course of therapy. She will continue Levaquin through 06/10/2017. (7) Tobacco abuse Is this a current diagnosis for this admission?: Yes Plan: The patient quit smoking 3 weeks prior to this hospitalization. She was encouraged to keep this up when she gets out of the hospital. (8) Costochondral pain Is this a current diagnosis for this admission?: Yes Plan: I am going to schedule her ibuprofen for now. (9) Daytime hypersomnolence Is this a current diagnosis for this admission?: Yes Plan: She will need a sleep study as an outpatient. (10) Anemia Qualifiers: Anemia type: unspecified type Qualified Code(s): D64.9 - Anemia, unspecified Is this a current diagnosis for this admission?: Yes Plan: She has a microcytic anemia. Her hemoglobin is stable. I will obtain an anemia panel for further evaluation - Time Time Spent with patient: 15-24 minutes - Inpatient Certification Medical Necessity: Other - I did not think at discharge inpatient hospitalization remains necessary. The patient ultimately is going to need transfer to another facility as she has ischemia requiring cardiac catheterization. She is having worsening chest discomfort this morning and I am going to place her on Nitropaste. She needs close monitoring in the hospital and then transferred to a different facility probably tomorrow.
[2017-06-09] MEDS: NITROGLYCERIN 2% OINTMENT 1 GM PACKET TP SCH ×3 (12:35→23:40)
[2017-06-09] MEDS: ATORVASTATIN CALCIUM 40 MG TABLET PO SCH (22:15)
[2017-06-10] MEDS: HYDROCODONE/ACETAMINOPHEN 5-325 MG TABLET PO PRN ×3 (01:03→22:00)
[2017-06-10] MEDS: BENZONATATE 100 MG CAPSULE PO SCH ×3 (01:04→17:28)
[2017-06-10] MEDS: HEPARIN SOD (PORCINE) 5,000 UNIT/ML 1 ML SYRINGE SUBCUT SCH ×3 (05:13→22:06)
[2017-06-10] MEDS: IBUPROFEN 600 MG TABLET PO SCH (05:13)
[2017-06-10] MEDS: VERAPAMIL HCL 80 MG TABLET PO SCH ×3 (05:13→22:05)
[2017-06-10] MEDS: LANSOPRAZOLE 30 MG TAB.RAP.DR PO SCH ×2 (05:14→16:06)
[2017-06-10] MEDS: NITROGLYCERIN 2% OINTMENT 1 GM PACKET TP SCH ×4 (05:14→23:54)
[2017-06-10 05:18] LABS: ABSOLUTE LYMPHOCYTES (AUTO) 2.7 10^3/uL (0.5-4.7); ABSOLUTE MONOCYTES (AUTO) 0.7 10^3/uL (0.1-1.4); ABSOLUTE NEUT (AUTO) 7.2 10^3/uL (1.7-8.2); BASOPHILS % (AUTO) 0.1 % (0-2); EOSINOPHILS % (AUTO) 0.2 % (0-6); HEMATOCRIT 26.9 % (36.0-47.0); HEMOGLOBIN 8.3 g/dL (12.0-15.5); LYMPHOCYTES % (AUTO) 25.4 % (13-45); MEAN CORPUSCULAR HEMOGLOBIN 19.3 pg (27.0-33.4); MEAN CORPUSCULAR VOLUME 62 fl (80-97); MONOCYTES % (AUTO) 6.9 % (3-13); RED BLOOD COUNT 4.32 10^6/uL (3.72-5.28); RED CELL DISTRIBUTION WIDTH 19.6 % (11.5-14.0); SEGMENTED NEUTROPHILS % (AUTO) 67.4 % (42-78); WHITE BLOOD COUNT 10.7 10^3/uL (4.0-10.5)
[2017-06-10] MEDS: LORATADINE/PSEUDOEPHEDRINE SUL 10-240 MG TAB.SR.24H PO SCH ×2 (05:23→17:28)
[2017-06-10] MEDS: ONDANSETRON HCL INJ/PF 4 MG/2 ML SDV IV SCH ×3 (05:24→22:06)
[2017-06-10 05:26] LABS: ANION GAP 9 (5-19); BLOOD UREA NITROGEN 21 mg/dL (7-20); CALCIUM 8.6 mg/dL (8.4-10.2); CARBON DIOXIDE 24 mmol/L (22-30); CHLORIDE 105 mmol/L (98-107); CREATININE RESULT 0.71 mg/dL (0.52-1.25); GLUCOSE 87 mg/dL (75-110); MAGNESIUM 2.3 mg/dL (1.6-2.3); POTASSIUM 4.2 mmol/L (3.6-5.0); SODIUM 137.7 mmol/L (137-145)
[2017-06-10 05:38] LABS: ANISOCYTOSIS 1+; HYPOCHROMASIA 1+; MICROCYTOSIS 3+; OVALOCYTES 1+; POLYCHROMASIA SLIGHT; TARGET CELLS SLIGHT
[2017-06-10 06:01] LABS: FERRITIN 8.88 ng/mL (6.2-137.0)
[2017-06-10 06:31] LABS: FOLATE 3.26 ng/mL (>2.76)
[2017-06-10] MEDS: IPRATROPIUM/ALBUTEROL 0.5-2.5 MG/3 ML AMPUL NEB SCH ×4 (07:58→19:51)
[2017-06-10] MEDS: PREDNISONE 20 MG TABLET PO SCH ×2 (09:14→10:38)
[2017-06-10] MEDS: GUAIFENESIN 600 MG TABLET.SA PO SCH ×2 (09:14→21:57)
[2017-06-10] MEDS: IPRATROPIUM BROMIDE HFA 17 MCG/PUFF 200 PUFF/12.9 GM MDI IH SCH (09:15)
[2017-06-10] MEDS: TIOTROPIUM BROMIDE DPI 5 CAP/KIT (18 MCG/CAP) IH SCH (09:16)
[2017-06-10] MEDS: LEVOFLOXACIN 500 MG/D5W RTU 500 MG/100 ML RTUPB IV SCH (09:17)
[2017-06-10] MEDS: NORMAL SALINE 10 ML SDV (SCHEDULED) IV SCH ×2 (09:18→22:00)
[2017-06-10] MEDS: CIPROFLOXACIN-HC OTIC SUSP 10 ML AD SCH ×2 (09:19→22:06)
[2017-06-10] MEDS: NYSTATIN 500000 UNIT/5 ML UDCUP PO SCH ×4 (09:23→22:06)
--- NOTE | 2017-06-10 09:55 | PDOC PROGRESS REPORT ---
Subjective Progress Note for:: 06/10/17 Subjective:: The patient is a pleasant 47-year-old female who initially presented to the hospital on 05/31/2017 with increased shortness of breath and cough productive of yellow sputum. Initially the patient was on BiPAP support. She was found to be having a COPD exacerbation. She was initially followed by pulmonology and over the next several days her respiratory failure resolved and she is back to her baseline. At the time of admission the patient had a mildly elevated troponin which did rise. She had an elevated BNP and her respiratory status did improve somewhat after receiving IV Lasix. 2D echocardiogram was unremarkable. After the patient's respiratory status improved, she continued to have issues with chest pain. She was seen by cardiology who recommended a stress test. Her stress test revealed mild reversible ischemia and wall motion abnormalities could not be ruled out. Cardiology recommended transfer for a cardiac catheterization. I initially spoke to [place] who stated that this was not an urgent transfer and that her catheterization could not be performed until the beginning of the week. They recommended that we maximize her respiratory status over the weekend and transfer her on Sunday or Sunday. After discussing with the family and the patient they do not believe that they can travel to the [place] area. They are requesting transfer to [facility] in [place], [place]. I spoke to the hospitalist today and unfortunately they will not be able to perform her catheterization until Sunday. They would like her to be at their facility at 8 AM. We are faxing records today and I have consulted the discharge planners to arrange transport for 6 AM on Sunday. Today when I saw the patient she continues to have chest pain. She was started on Nitropaste yesterday and she states that it initially helped. This morning nothing is helping and she is having substernal chest pain that radiates up into her right shoulder and neck. She has had no fever or chills overnight. She is not acutely short of breath. She states she is tolerating her diet. She states that it is very difficult to tell if this is her heart or if she is having issues with reflux. She reports a history of GI bleeding and severe anemia a few years ago. She was hospitalized at [facility] at that time and no source of bleeding was found. She has not yet had a bowel movement today. She is having no dysuria, frequency or hematuria. Physical Exam Vital Signs: Temp Pulse Resp BP Pulse Ox 97.9 F 105 H 16 115/64 95 06/10/17 07:23 06/10/17 08:05 06/10/17 08:05 06/10/17 07:23 06/10/17 08:05 Pulse Oximeter Continuous Start: 05/31/17 12: 44 Freq: RTQ4 Status: Active Document 06/10/17 08:05 JDR (Rec: 06/10/17 08:08 JDR [email or web address]) Pulse Oximetry Assessment Oxygen Saturation (92-100) 95 Oxygen Delivery Method Room Air Equipment Usage Equipment Standby Continuous SpO2 Machine # 11 Intake & Output 06/09/17 06/10/17 06/11/17 06:59 06:59 06:59 Intake Total 1697 3018 Balance 1697 3018 Weight 75.9 kg 75.8 kg General appearance: PRESENT: no acute distress, well-developed, well-nourished Head exam: PRESENT: atraumatic, normocephalic Ear exam: PRESENT: normal external ear exam Respiratory exam: PRESENT: clear to auscultation daniel. ABSENT: rales, rhonchi, wheezes Cardiovascular exam: PRESENT: RRR. ABSENT: diastolic murmur, rubs, systolic murmur GI/Abdominal exam: PRESENT: normal bowel sounds, soft. ABSENT: distended, guarding, mass, organolmegaly, rebound, tenderness Rectal exam: PRESENT: deferred Extremities exam: PRESENT: full ROM. ABSENT: calf tenderness, clubbing, pedal edema Neurological exam: PRESENT: alert, awake, oriented to person, oriented to place , oriented to time, oriented to situation, CN II-XII grossly intact. ABSENT: motor sensory deficit Psychiatric exam: PRESENT: appropriate affect, normal mood. ABSENT: homicidal ideation, suicidal ideation Skin exam: PRESENT: dry, intact, warm. ABSENT: cyanosis, rash Results Laboratory Results: 06/10/17 05:00 06/10/17 05:00 06/10/17 06/10/17 05:00 05:00 WBC 10.7 H RBC 4.32 Hgb 8.3 L Hct 26.9 L MCV 62 L MCH 19.3 L MCHC 31.0 L RDW 19.6 H Plt Count 323 Seg Neutrophils % 67.4 Lymphocytes % 25.4 Monocytes % 6.9 Eosinophils % 0.2 Basophils % 0.1 Absolute Neutrophils 7.2 Absolute Lymphocytes 2.7 Absolute Monocytes 0.7 Absolute Eosinophils 0.0 Absolute Basophils 0.0 Retic Count (auto) 1.34 Absolute Retic 0.058 Sodium 137.7 Potassium 4.2 Chloride 105 Carbon Dioxide 24 Anion Gap 9 BUN 21 H Creatinine 0.71 Est GFR ( Amer) > 60 Est GFR (Non-Af Amer) > 60 Glucose 87 Calcium 8.6 Magnesium 2.3 Iron < 10.1 L TIBC 350 % Saturation UNABLE TO CALCULATE Ferritin 8.88 Vitamin B12 754.0 Folate 3.26 06/06/17 22:42 Sputum AFB Smear Concentration - Final 06/06/17 22:42 Sputum Acid Fast Bacilli Smear - Final 06/06/17 22:42 Sputum AFB Susceptibiility Rapid Grower - Final Not Reportable 06/06/17 22:42 Sputum AFB Susceptibiility Rapid Grower - Final Not Reportable 06/06/17 22:42 Sputum AFB Susceptibiility Rapid Grower - Final Not Reportable 06/06/17 22:42 Sputum AFB Susceptibiility Rapid Grower - Final Not Reportable 06/06/17 22:42 Sputum AFB Susceptibiility Rapid Grower - Final Not Reportable 06/06/17 22:42 Sputum AFB Susceptibiility Rapid Grower - Final Not Reportable 06/06/17 22:42 Sputum AFB Susceptibiility Rapid Grower - Final Not Reportable 06/06/17 22:42 Sputum AFB Susceptibiility Rapid Grower - Final Not Reportable 06/06/17 22:42 Sputum Microbiology Comment - Final Not Reportable 06/06/17 22:42 Sputum Mycobacter marinum Susceptibility - Final Not Reportable 06/06/17 22:42 Sputum Mycobacterium Identification - Final Not Reportable 06/06/17 22:42 Sputum Mycobacter marinum Susceptibility - Final Not Reportable 06/06/17 22:42 Sputum Mycobacter marinum Susceptibility - Final Not Reportable 06/06/17 22:42 Sputum Mycobacter marinum Susceptibility - Final Not Reportable 06/06/17 22:42 Sputum Mycobacter marinum Susceptibility - Final Not Reportable 06/06/17 22:42 Sputum Mycobacter marinum Susceptibility - Final Not Reportable 06/06/17 22:42 Sputum Mycobacter marinum Susceptibility - Final Not Reportable 06/06/17 22:42 Sputum Microbiology Comment - Final Not Reportable 06/06/17 22:42 Sputum M.tuberculosis Complex Suscept Conf - Final Not Reportable 06/06/17 22:42 Sputum M.tuberculosis Complex Susceptibil - Final Not Reportable 06/06/17 22:42 Sputum M.tuberculosis Complex Suscept Conf - Final Not Reportable 06/06/17 22:42 Sputum M.tuberculosis Complex Suscept Conf - Final Not Reportable 06/06/17 22:42 Sputum M.tuberculosis Complex Suscept Conf - Final Not Reportable 06/06/17 22:42 Sputum M.tuberculosis Complex Suscept Conf - Final Not Reportable 06/06/17 22:42 Sputum M.tuberculosis Complex Suscept Conf - Final Not Reportable 06/06/17 22:42 Sputum Nocardia/Actinomyces Susceptibility - Final Not Reportable 06/06/17 22:42 Sputum M. avium Complex Susceptibility - Final Not Reportable 06/06/17 22:42 Sputum M. avium Complex Susceptibility - Final Not Reportable 06/06/17 22:42 Sputum M. avium Complex Susceptibility - Final Not Reportable 06/06/17 22:42 Sputum M. avium Complex Susceptibility - Final Not Reportable 06/06/17 22:42 Sputum M. avium Complex Susceptibility - Final Not Reportable 06/06/17 22:42 Sputum M. avium Complex Susceptibility - Final Not Reportable 06/06/17 22:42 Sputum M. avium Complex Susceptibility - Final Not Reportable 06/06/17 22:42 Sputum M. avium Complex Susceptibility - Final Not Reportable 06/06/17 22:42 Sputum M. avium Complex Susceptibility - Final Not Reportable 06/06/17 22:42 Sputum M. avium Complex Susceptibility - Final Not Reportable 06/06/17 22:42 Sputum Microbiology Comment - Final Not Reportable 06/06/17 22:42 Sputum AFB Susceptibiility Slow Grower - Final Not Reportable 06/06/17 22:42 Sputum AFB Susceptibiility Slow Grower - Final Not Reportable 06/06/17 22:42 Sputum AFB Susceptibiility Slow Grower - Final Not Reportable 06/06/17 22:42 Sputum AFB Susceptibiility Slow Grower - Final Not Reportable 06/06/17 22:42 Sputum AFB Susceptibiility Slow Grower - Final Not Reportable 06/06/17 22:42 Sputum AFB Susceptibiility Slow Grower - Final Not Reportable 06/06/17 22:42 Sputum AFB Susceptibiility Slow Grower - Final Not Reportable 06/06/17 22:42 Sputum AFB Susceptibiility Slow Grower - Final Not Reportable 06/06/17 22:42 Sputum AFB Susceptibiility Slow Grower - Final Not Reportable 06/06/17 22:42 Sputum AFB Susceptibiility Slow Grower - Final Not Reportable 06/06/17 22:42 Sputum Microbiology Comment - Final Not Reportable 06/06/17 22:42 Sputum Nocardia Susceptibility - Final Not Reportable 06/06/17 22:42 Sputum Nocardia Susceptibility - Final CASINO HOST 06/06/17 22:42 Sputum Nocardia Susceptibility - Final Not Reportable 06/06/17 22:42 Sputum Nocardia Susceptibility - Final Not Reportable 06/06/17 22:42 Sputum Nocardia Susceptibility - Final Not Reportable 06/06/17 22:42 Sputum Nocardia Susceptibility - Final Not Reportable 06/06/17 22:42 Sputum Nocardia Susceptibility - Final Not Reportable 06/06/17 22:42 Sputum Nocardia Susceptibility - Final Not Reportable 06/06/17 22:42 Sputum Nocardia Susceptibility - Final Not Reportable 06/06/17 22:42 Sputum Nocardia Susceptibility - Final Not Reportable 06/06/17 22:42 Sputum Microbiology Comment - Final Not Reportable 05/31/17 06/01/17 06/01/17 08:30 05:29 05:29 Creatine Kinase 166 H CK-MB (CK-2) Troponin I 0.373 NT-Pro-B Natriuret Pep 2150 H 06/05/17 06/08/17 06/09/17 12:45 14:35 00:41 Creatine Kinase CK-MB (CK-2) 2.96 Troponin I 0.026 0.053 NT-Pro-B Natriuret Pep 1090 H 06/09/17 06/09/17 05:35 05:35 Creatine Kinase CK-MB (CK-2) Troponin I 0.064 NT-Pro-B Natriuret Pep 1160 H Impressions: Chest CT 05/31/17 00:00 IMPRESSION: NORMAL CT OF THE CHEST WITH IV CONTRAST. Facial Bones CT 05/31/17 00:00 IMPRESSION: Mild sinus disease. Chest X-Ray 06/01/17 08:38 IMPRESSION: NO SIGNIFICANT RADIOGRAPHIC FINDING IN THE CHEST. Guidance Fluoroscopy 06/04/17 00:00 IMPRESSION: SUCCESSFUL PLACEMENT OF A 5 FR DUAL LUMEN 32 CM PICC IN THE RIGHT BASILIC VEIN. Interventional Vascular Procedure 06/04/17 00:00 IMPRESSION: SUCCESSFUL PLACEMENT OF A 5 FR DUAL LUMEN 32 CM PICC IN THE RIGHT BASILIC VEIN. PICC Line Insertion 06/04/17 00:00 IMPRESSION: SUCCESSFUL PLACEMENT OF A 5 FR DUAL LUMEN 32 CM PICC IN THE RIGHT BASILIC VEIN. Assessment & Plan - Diagnosis (1) Acute respiratory failure Qualifiers: Respiratory failure complication: hypoxia and hypercapnia Qualified Code(s) : J96.01 - Acute respiratory failure with hypoxia; J96.02 - Acute respiratory failure with hypercapnia; J96.02 - Acute respiratory failure with hypercapnia; J96.02 - Acute respiratory failure with hypercapnia Is this a current diagnosis for this admission?: Yes Plan: Resolved at this point. The patient has been weaned off of her oxygen and currently is stable on room air. Her respiratory failure was likely due to COPD exacerbation. (2) COPD exacerbation Is this a current diagnosis for this admission?: Yes Plan: Much improved. She has been transitioned over to p.o. prednisone. I have decreased her prednisone to 40 mg today. We should quickly taper this over the next few days. (3) Acute diastolic (congestive) heart failure Plan: The patient had an elevated BNP. She responded quite nicely and her respiratory distress improved after receiving IV Lasix. BNP is still elevated but improved. The patient has normal left ventricular function and no evidence of diastolic dysfunction on her most recent echocardiogram. I do believe the patient was having a mild diastolic congestive heart failure exacerbation in spite of her relatively normal echocardiogram. (4) Cardiac ischemia Plan: The patient had some mild reversible ischemia noted on her stress test from yesterday. I spoke to a applications processor in [place]. She recommended that we trend the patient's troponins again. These were slightly elevated. The family has requested transfer to [facility] for her catheterization. They have accepted the patient and would like for her to be at their facility on Sunday morning at 8 AM. I have faxed initial records today. We will need to fax transfer summary and notes from today and tomorrow at the time of transfer. The patient will continue Nitropaste. She is not on anticoagulation at this point because I am concerned about her worsening anemia. Will defer to cardiology when they see her today on whether they feel like she needs to be placed on anticoagulation. (5) Elevated troponin Plan: I believe the patient had a mild non-ST elevation myocardial infarction. Again she will be transferred probably to [place] on Sunday for consideration of catheterization as there was some mild ischemia noted on her stress test. Cardiology is following here in the hospital and we certainly appreciate their input. (6) Anemia Qualifiers: Anemia type: iron deficiency Is this a current diagnosis for this admission?: Yes Plan: The patient has had a precipitous drop in hemoglobin since yesterday. She has been on scheduled ibuprofen as she was having pleuritic chest pain from her COPD exacerbation. I am going to repeat a CBC this morning. I am stopping her ibuprofen. We will try to wean her off the prednisone as quickly as possible. She does have a history of reported GI bleeding in the past. We will follow-up with these results. For now I will continue her heparin for DVT prophylaxis. If her hemoglobin has dropped further I will likely stop this. (7) Tobacco abuse Is this a current diagnosis for this admission?: Yes Plan: The patient quit smoking 3 weeks prior to this hospitalization. She was encouraged to keep this up when she gets out of the hospital. (8) Sinusitis Qualifiers: Sinusitis location: frontal Chronicity: chronic Qualified Code(s): J32.1 - Chronic frontal sinusitis Is this a current diagnosis for this admission?: Yes Plan: Currently on Levaquin. We will complete a course of therapy. This is the last day of treatment with p.o. Levaquin. (9) Costochondral pain Is this a current diagnosis for this admission?: Yes Plan: I am stopping her ibuprofen today. This is improving. (10) Daytime hypersomnolence Is this a current diagnosis for this admission?: Yes Plan: She will need a sleep study as an outpatient. - Time Time Spent with patient: 35 or more minutes - Inpatient Certification Medical Necessity: Need Close Monitoring Due to Risk of Patient Decompensation, Other - Inpatient hospitalization remains necessary. The patient is going to need transfer to [facility] for cardiac catheterization. Her hemoglobin is falling and I am quite concerned she may be having some issues with bleeding. She needs to stay in the hospital until she can be transferred and monitored quite closely.
[2017-06-10] MEDS ORDERED: LIDOCAINE 2% VISCOUS SOLN 20 ML UDCUP PO ONE (10:00)
[2017-06-10] MEDS ORDERED: MAG HYDROX/AL HYDROX/SIMETH SUSP 30 ML UDCUP PO ONE (10:00)
[2017-06-10] MEDS ORDERED: METOCLOPRAMIDE HCL ORAL SOLN 10 MG/10 ML UDCUP PO ONE (10:00)
--- NOTE | 2017-06-10 10:09 | PDOC DISCHARGE SUMMARY ---
General - Admit/Disc Date/PCP Admission Date/Primary Care Provider: 05/31/17 08:28 Primary CARE provider: None Assistant Foreman: Dr. Wynn Tanning Consultant: Dr. Bean Discharge Date: 06/12/17 - Discharge Diagnosis (1) Acute respiratory failure Is this a current diagnosis for this admission?: Yes Summary: Secondary to COPD exacerbation. Resolved (2) COPD exacerbation Is this a current diagnosis for this admission?: Yes Summary: She is in the process of completing a steroid taper (3) Acute diastolic (congestive) heart failure Is this a current diagnosis for this admission?: Yes Summary: The patient had an elevated BNP. She responded quite nicely and her respiratory distress improved after receiving IV Lasix. BNP is still elevated but improved. The patient has normal left ventricular function and no evidence of diastolic dysfunction on her most recent echocardiogram. I do believe the patient was having a mild diastolic congestive heart failure exacerbation in spite of her relatively normal echocardiogram. (4) Cardiac ischemia Is this a current diagnosis for this admission?: Yes Summary: Mild ischemia noted on Cardiolite stress test and mildly elevated troponins. She will be transferred to [facility] on 06/12/2017 for a cardiac catheterization. She has been started on a beta-arielle and statin medication. She is not on an aspirin due to an allergy. (5) Elevated troponin Summary: I believe the patient had a mild non-ST elevation myocardial infarction. Again she will be transferred probably to [place] on Sunday for consideration of catheterization as there was some mild ischemia noted on her stress test. (6) Anemia Is this a current diagnosis for this admission?: Yes Summary: She has an iron deficiency anemia. Workup is ongoing. She will be given some IV iron today. (7) Tobacco abuse Is this a current diagnosis for this admission?: Yes Summary: The patient quit smoking 3 weeks ago. She was commended for this and should try to abstain going forward. (8) Sinusitis Is this a current diagnosis for this admission?: Yes Summary: She completed a 10 day course of treatment with Levaquin. (9) Costochondral pain Is this a current diagnosis for this admission?: Yes Summary: Secondary to COPD exacerbation. Improving. (10) Daytime hypersomnolence Is this a current diagnosis for this admission?: Yes Summary: She will need a sleep study arranged as an outpatient. - Additional Information Resuscitation Status: Full Code Home Medications: No Home Medications 05/31/17 History of Present Illness History of Present Illness: The patient is a 47-year-old female that initially presented to the hospital with shortness of breath. Hospital Course Hospital Course: The patient is a pleasant 47-year-old female who initially presented to the hospital on 05/31/2017 with increased shortness of breath and cough productive of yellow sputum. Initially the patient was on BiPAP support. She was found to be having a COPD exacerbation. She was initially followed by pulmonology and over the next several days her respiratory failure resolved and she is back to her baseline. At the time of admission the patient had a mildly elevated troponin which did rise. She had an elevated BNP and her respiratory status did improve somewhat after receiving IV Lasix. 2D echocardiogram was unremarkable. After the patient's respiratory status improved, she continued to have issues with chest pain. She was seen by cardiology who recommended a stress test. Her stress test revealed mild reversible ischemia and wall motion abnormalities could not be ruled out. Cardiology recommended transfer for a cardiac catheterization. I initially spoke to [facility] who stated that this was not an urgent transfer and that her catheterization could not be performed until the beginning of the week. They recommended that we maximize her respiratory status over the weekend and transfer her on Sunday or Sunday. After discussing with the family and the patient they do not believe that they can travel to the [place] area. They are requesting transfer to [facility] in [place], [place]. I spoke to [facility] who accepted the patient on 06/12/2017 for transfer for consideration of cardiac catheterization. She will be transitioned to their facility on that day. Physical Exam Vital Signs: Temp Pulse Resp BP Pulse Ox 97.9 F 105 H 16 115/64 95 06/10/17 07:23 06/10/17 08:05 06/10/17 08:05 06/10/17 07:23 06/10/17 08:05 Pulse Oximeter Continuous Start: 05/31/17 12: 44 Freq: RTQ4 Status: Active Document 06/10/17 08:05 [facility] (Rec: 06/10/17 08:08 J [email or web address]) Pulse Oximetry Assessment Oxygen Saturation (92-100) 95 Oxygen Delivery Method Room Air Equipment Usage Equipment Standby Continuous SpO2 Machine # 11 Intake & Output 06/09/17 06/10/17 06/11/17 06:59 06:59 06:59 Intake Total 1697 3018 Balance 1697 3018 Weight 75.9 kg 75.8 kg General appearance: PRESENT: no acute distress, well-developed, well-nourished Head exam: PRESENT: atraumatic, normocephalic Ear exam: PRESENT: normal external ear exam Mouth exam: PRESENT: moist, tongue midline Respiratory exam: PRESENT: clear to auscultation daniel. ABSENT: rales, rhonchi, wheezes Cardiovascular exam: PRESENT: RRR. ABSENT: diastolic murmur, rubs, systolic murmur Pulses: PRESENT: normal dorsalis pedis pul Vascular exam: PRESENT: normal capillary refill GI/Abdominal exam: PRESENT: normal bowel sounds, soft. ABSENT: distended, guarding, mass, organolmegaly, rebound, tenderness Rectal exam: PRESENT: deferred Extremities exam: PRESENT: full ROM. ABSENT: calf tenderness, clubbing, pedal edema Musculoskeletal exam: PRESENT: ambulatory Neurological exam: PRESENT: alert, awake, oriented to person, oriented to place , oriented to time, oriented to situation, CN II-XII grossly intact. ABSENT: motor sensory deficit Psychiatric exam: PRESENT: appropriate affect, normal mood. ABSENT: homicidal ideation, suicidal ideation Skin exam: PRESENT: dry, intact, warm. ABSENT: cyanosis, rash Results Laboratory Results: 06/10/17 05:00 06/10/17 05:00 06/10/17 06/10/17 05:00 05:00 WBC 10.7 H RBC 4.32 Hgb 8.3 L Hct 26.9 L MCV 62 L MCH 19.3 L MCHC 31.0 L RDW 19.6 H Plt Count 323 Seg Neutrophils % 67.4 Lymphocytes % 25.4 Monocytes % 6.9 Eosinophils % 0.2 Basophils % 0.1 Absolute Neutrophils 7.2 Absolute Lymphocytes 2.7 Absolute Monocytes 0.7 Absolute Eosinophils 0.0 Absolute Basophils 0.0 Retic Count (auto) 1.34 Absolute Retic 0.058 Sodium 137.7 Potassium 4.2 Chloride 105 Carbon Dioxide 24 Anion Gap 9 BUN 21 H Creatinine 0.71 Est GFR ( Amer) > 60 Est GFR (Non-Af Amer) > 60 Glucose 87 Calcium 8.6 Magnesium 2.3 Iron < 10.1 L TIBC 350 % Saturation UNABLE TO CALCULATE Ferritin 8.88 Vitamin B12 754.0 Folate 3.26 06/06/17 22:42 Sputum AFB Smear Concentration - Final 06/06/17 22:42 Sputum Acid Fast Bacilli Smear - Final 06/06/17 22:42 Sputum AFB Susceptibiility Rapid Grower - Final Not Reportable 06/06/17 22:42 Sputum AFB Susceptibiility Rapid Grower - Final Not Reportable 06/06/17 22:42 Sputum AFB Susceptibiility Rapid Grower - Final Not Reportable 06/06/17 22:42 Sputum AFB Susceptibiility Rapid Grower - Final Not Reportable 06/06/17 22:42 Sputum AFB Susceptibiility Rapid Grower - Final Not Reportable 06/06/17 22:42 Sputum AFB Susceptibiility Rapid Grower - Final Not Reportable 06/06/17 22:42 Sputum AFB Susceptibiility Rapid Grower - Final Not Reportable 06/06/17 22:42 Sputum AFB Susceptibiility Rapid Grower - Final Not Reportable 06/06/17 22:42 Sputum Microbiology Comment - Final Not Reportable 06/06/17 22:42 Sputum Mycobacter marinum Susceptibility - Final Not Reportable 06/06/17 22:42 Sputum Mycobacterium Identification - Final Not Reportable 06/06/17 22:42 Sputum Mycobacter marinum Susceptibility - Final Not Reportable 06/06/17 22:42 Sputum Mycobacter marinum Susceptibility - Final Not Reportable 06/06/17 22:42 Sputum Mycobacter marinum Susceptibility - Final Not Reportable 06/06/17 22:42 Sputum Mycobacter marinum Susceptibility - Final Not Reportable 06/06/17 22:42 Sputum Mycobacter marinum Susceptibility - Final Not Reportable 06/06/17 22:42 Sputum Mycobacter marinum Susceptibility - Final Not Reportable 06/06/17 22:42 Sputum Microbiology Comment - Final Not Reportable 06/06/17 22:42 Sputum M.tuberculosis Complex Suscept Conf - Final Not Reportable 06/06/17 22:42 Sputum M.tuberculosis Complex Susceptibil - Final Not Reportable 06/06/17 22:42 Sputum M.tuberculosis Complex Suscept Conf - Final Not Reportable 06/06/17 22:42 Sputum M.tuberculosis Complex Suscept Conf - Final Not Reportable 06/06/17 22:42 Sputum M.tuberculosis Complex Suscept Conf - Final Not Reportable 06/06/17 22:42 Sputum M.tuberculosis Complex Suscept Conf - Final Not Reportable 06/06/17 22:42 Sputum M.tuberculosis Complex Suscept Conf - Final Not Reportable 06/06/17 22:42 Sputum Nocardia/Actinomyces Susceptibility - Final Not Reportable 06/06/17 22:42 Sputum M. avium Complex Susceptibility - Final Not Reportable 06/06/17 22:42 Sputum M. avium Complex Susceptibility - Final Not Reportable 06/06/17 22:42 Sputum M. avium Complex Susceptibility - Final Not Reportable 06/06/17 22:42 Sputum M. avium Complex Susceptibility - Final Not Reportable 06/06/17 22:42 Sputum M. avium Complex Susceptibility - Final Not Reportable 06/06/17 22:42 Sputum M. avium Complex Susceptibility - Final Not Reportable 06/06/17 22:42 Sputum M. avium Complex Susceptibility - Final Not Reportable 06/06/17 22:42 Sputum M. avium Complex Susceptibility - Final Not Reportable 06/06/17 22:42 Sputum M. avium Complex Susceptibility - Final Not Reportable 06/06/17 22:42 Sputum M. avium Complex Susceptibility - Final Not Reportable 06/06/17 22:42 Sputum Microbiology Comment - Final Not Reportable 06/06/17 22:42 Sputum AFB Susceptibiility Slow Grower - Final Not Reportable 06/06/17 22:42 Sputum AFB Susceptibiility Slow Grower - Final Not Reportable 06/06/17 22:42 Sputum AFB Susceptibiility Slow Grower - Final Not Reportable 06/06/17 22:42 Sputum AFB Susceptibiility Slow Grower - Final Not Reportable 06/06/17 22:42 Sputum AFB Susceptibiility Slow Grower - Final Not Reportable 06/06/17 22:42 Sputum AFB Susceptibiility Slow Grower - Final Not Reportable 06/06/17 22:42 Sputum AFB Susceptibiility Slow Grower - Final Not Reportable 06/06/17 22:42 Sputum AFB Susceptibiility Slow Grower - Final Not Reportable 06/06/17 22:42 Sputum AFB Susceptibiility Slow Grower - Final Not Reportable 06/06/17 22:42 Sputum AFB Susceptibiility Slow Grower - Final Not Reportable 06/06/17 22:42 Sputum Microbiology Comment - Final Not Reportable 06/06/17 22:42 Sputum Nocardia Susceptibility - Final Not Reportable 06/06/17 22:42 Sputum Nocardia Susceptibility - Final PUBLIC RELATIONS STUDIES DIRECTOR 06/06/17 22:42 Sputum Nocardia Susceptibility - Final Not Reportable 06/06/17 22:42 Sputum Nocardia Susceptibility - Final Not Reportable 06/06/17 22:42 Sputum Nocardia Susceptibility - Final Not Reportable 06/06/17 22:42 Sputum Nocardia Susceptibility - Final Not Reportable 06/06/17 22:42 Sputum Nocardia Susceptibility - Final Not Reportable 06/06/17 22:42 Sputum Nocardia Susceptibility - Final Not Reportable 06/06/17 22:42 Sputum Nocardia Susceptibility - Final Not Reportable 06/06/17 22:42 Sputum Nocardia Susceptibility - Final Not Reportable 06/06/17 22:42 Sputum Microbiology Comment - Final Not Reportable 05/31/17 06/01/17 06/01/17 08:30 05:29 05:29 Creatine Kinase 166 H CK-MB (CK-2) Troponin I 0.373 NT-Pro-B Natriuret Pep 2150 H 06/05/17 06/08/17 06/09/17 12:45 14:35 00:41 Creatine Kinase CK-MB (CK-2) 2.96 Troponin I 0.026 0.053 NT-Pro-B Natriuret Pep 1090 H 06/09/17 06/09/17 05:35 05:35 Creatine Kinase CK-MB (CK-2) Troponin I 0.064 NT-Pro-B Natriuret Pep 1160 H Impressions: Chest CT 05/31/17 00:00 IMPRESSION: NORMAL CT OF THE CHEST WITH IV CONTRAST. Facial Bones CT 05/31/17 00:00 IMPRESSION: Mild sinus disease. Chest X-Ray 06/01/17 08:38 IMPRESSION: NO SIGNIFICANT RADIOGRAPHIC FINDING IN THE CHEST. Guidance Fluoroscopy 06/04/17 00:00 IMPRESSION: SUCCESSFUL PLACEMENT OF A 5 FR DUAL LUMEN 32 CM PICC IN THE RIGHT BASILIC VEIN. Interventional Vascular Procedure 06/04/17 00:00 IMPRESSION: SUCCESSFUL PLACEMENT OF A 5 FR DUAL LUMEN 32 CM PICC IN THE RIGHT BASILIC VEIN. PICC Line Insertion 06/04/17 00:00 IMPRESSION: SUCCESSFUL PLACEMENT OF A 5 FR DUAL LUMEN 32 CM PICC IN THE RIGHT BASILIC VEIN. Qualifiers PATEINT BEING DISCHARGED WITH ANY OF THE FOLLOWING DIAGNOSIS?: MA VTE patient discharged on overlapping Therapy?: No Reason(s) for not prescribing Overlap Therapy:: Tx not tolerated, Adverse reaction to drug Reason(s) for not prescribing Aspirin therapy:: Medical Contraindication, Adverse reaction to drug MA Pt being discharged on Statins?: Yes MA Pt discharged ACEI/ARBS?: Yes Plan Discharge Plan: The patient will be transferred to [facility] on 06/12/2017 for consideration of cardiac catheterization. Time Spent: Greater than 30 Minutes
[2017-06-10] MEDS ORDERED: METOPROLOL SUCCINATE 25 MG TAB.SR.24H PO ONE (10:30)
[2017-06-10 11:10] LABS: ABSOLUTE EOSINOPHILS # (AUTO) 0.1 10^3/uL (0.0-0.6); ABSOLUTE LYMPHOCYTES (AUTO) 3.6 10^3/uL (0.5-4.7); ABSOLUTE MONOCYTES (AUTO) 0.9 10^3/uL (0.1-1.4); EOSINOPHILS % (AUTO) 1.1 % (0-6); HEMATOCRIT 28.3 % (36.0-47.0); HEMOGLOBIN 8.7 g/dL (12.0-15.5); HGB HCT DIFFERENCE -2.2; LYMPHOCYTES % (AUTO) 30.9 % (13-45); MEAN CORPUSCULAR HEMOGLOBIN 19.1 pg (27.0-33.4); MEAN CORPUSCULAR HGB CONC 30.9 g/dL (32.0-36.0); MEAN CORPUSCULAR VOLUME 62 fl (80-97); MONOCYTES % (AUTO) 7.8 % (3-13); RED BLOOD COUNT 4.57 10^6/uL (3.72-5.28); RED CELL DISTRIBUTION WIDTH 19.6 % (11.5-14.0); SEGMENTED NEUTROPHILS % (AUTO) 60.2 % (42-78); WHITE BLOOD COUNT 11.6 10^3/uL (4.0-10.5)
[2017-06-10 11:28] LABS: OVALOCYTES 1+; TARGET CELLS SLIGHT
[2017-06-10 11:29] LABS: ANISOCYTOSIS 2+; HYPOCHROMASIA 1+; POIKILOCYTOSIS SLIGHT; POLYCHROMASIA SLIGHT
[2017-06-10 11:30] LABS: MICROCYTOSIS 3+
[2017-06-10] MEDS: CYCLOBENZAPRINE HCL 10 MG TABLET PO PRN ×2 (12:12→22:01)
--- NOTE | 2017-06-10 13:58 | PDOC PROGRESS REPORT ---
Subjective Progress Note for:: 06/09/17 Subjective:: Patient seems to be doing better with gradual improvement. Patient has noted some intermittent chest discomfort. Patient did complete nuclear stress test without any complications. Patient denying any PND, orthopnea. Patient denied any sustained palpitations, dizziness, syncope, near syncope. Patient denying any fever chills. Patient denying any other significant discomfort. Patient still has shortness of breath but is significantly improved. Patient claims that for last several weeks, she had noted chest discomfort along with spells where she would become very anxious. Patient is maintaining sinus rhythm. Review of systems: Rest review of systems negative. Medications: Medications have been reviewed. Physical Exam Vital Signs: Temp Pulse Resp BP Pulse Ox 98.2 F 108 H 16 114/63 96 06/09/17 15:28 06/09/17 16:02 06/09/17 16:02 06/09/17 15:28 06/09/17 16:02 Pulse Oximeter Continuous Start: 05/31/17 12: 44 Freq: RTQ4 Status: Active Document 06/09/17 16:02 [facility] (Rec: 06/09/17 16:03 J [email or web address]) Pulse Oximetry Assessment Oxygen Saturation (92-100) 96 Oxygen Delivery Method Room Air Fraction of Inspired Oxygen (FIO2) 21 Equipment Usage Equipment in Use Continuous SpO2 Machine # 11 Intake & Output 06/08/17 06/09/17 06/10/17 06:59 06:59 06:59 Intake Total 1627 1697 1456 Output Total 400 Balance 1227 1697 1456 Weight 77.8 kg 75.9 kg Exam: GENERAL: well-nourished and in no acute distress. Alert and oriented x3 HEAD: Atraumatic, normocephalic. EYES: Pupils equal round and reactive to light, extraocular movements intact, sclera anicteric, conjunctiva are normal. ENT: TMs normal, nares patent, oropharynx clear without exudates. Moist mucous membranes. No oral ulcerations or bleeding gums noted NECK: supple without lymphadenopathy. Trachea is central. No cervical or axillary lymphadenopathy noted. Carotids are 2+, JVD WNL LUNGS: Respiration seems nonlabored, no significant accessory muscle action noted. Breath sounds clear to auscultation bilaterally and equal noted. No wheezes rales or rhonchi noted. No significant dullness noted on percussion. CHEST: Palpation of the chest wall shows no significant chest wall tenderness. No other significant abnormalities noted. 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 ABDOMEN: Soft, no significant tenderness appreciated, normoactive bowel sounds. No guarding, no rebound. No rigidity noted . No masses appreciated. EXTREMITIES: Pedal pulses are 1-2+, no calf tenderness noted. No clubbing or cyanosis.trace to 1+ pedal edema noted NEUROLOGICAL: Focused neurological exam showed no significant neurologic deficit. Normal speech, no focal weakness appreciated. PSYCH: Normal mood, normal affect. Judgment and insight within normal limits. SKIN: No significant ecchymosis, rash, ulcerations or signs of pruritus noted. MUSCULOSKELETAL EXAM: No significant joint swelling noted. Results Laboratory Results: 06/08/17 05:40 06/09/17 05:35 06/09/17 05:35 Sodium 140.0 Potassium 3.7 Chloride 106 Carbon Dioxide 24 Anion Gap 10 BUN 30 H Creatinine 0.78 Est GFR ( Amer) > 60 Est GFR (Non-Af Amer) > 60 Glucose 80 Calcium 8.7 Magnesium 2.2 05/31/17 06/01/17 06/01/17 08:30 05:29 05:29 Creatine Kinase 166 H CK-MB (CK-2) Troponin I 0.373 NT-Pro-B Natriuret Pep 2150 H 06/05/17 06/08/17 06/09/17 12:45 14:35 00:41 Creatine Kinase CK-MB (CK-2) 2.96 Troponin I 0.026 0.053 NT-Pro-B Natriuret Pep 1090 H 06/09/17 06/09/17 05:35 05:35 Creatine Kinase CK-MB (CK-2) Troponin I 0.064 NT-Pro-B Natriuret Pep 1160 H EKG Comments: Sinus rhythm, no acute ST-T wave changes are noted. Impressions: Chest CT 05/31/17 00:00 IMPRESSION: NORMAL CT OF THE CHEST WITH IV CONTRAST. Facial Bones CT 05/31/17 00:00 IMPRESSION: Mild sinus disease. Chest X-Ray 06/01/17 08:38 IMPRESSION: NO SIGNIFICANT RADIOGRAPHIC FINDING IN THE CHEST. Guidance Fluoroscopy 06/04/17 00:00 IMPRESSION: SUCCESSFUL PLACEMENT OF A 5 FR DUAL LUMEN 32 CM PICC IN THE RIGHT BASILIC VEIN. Interventional Vascular Procedure 06/04/17 00:00 IMPRESSION: SUCCESSFUL PLACEMENT OF A 5 FR DUAL LUMEN 32 CM PICC IN THE RIGHT BASILIC VEIN. PICC Line Insertion 06/04/17 00:00 IMPRESSION: SUCCESSFUL PLACEMENT OF A 5 FR DUAL LUMEN 32 CM PICC IN THE RIGHT BASILIC VEIN. Assessment & Plan - Diagnosis (1) Elevated troponin Is this a current diagnosis for this admission?: Yes (2) Chest pain Qualifiers: Chest pain type: unspecified Qualified Code(s): R07.9 - Chest pain, unspecified Is this a current diagnosis for this admission?: Yes (3) COPD exacerbation Is this a current diagnosis for this admission?: Yes (4) Daytime hypersomnolence Is this a current diagnosis for this admission?: Yes (5) Tobacco abuse Is this a current diagnosis for this admission?: Yes - Notes Notes: Patient continues with intermittent chest pain. She does describe history of gastroesophageal reflux disease. Patient was therefore started on Prevacid. As regards COPD with exacerbation, this has improved. Patient seems to have significant COPD. Daytime hypersomnolence: Patient encouraged to schedule a sleep study as an outpatient. Tobacco abuse: Currently is stable. Patient apparently changed her mind regarding whether she wishes to go to [facility] or to [facility]. Patient now wishes to go to [facility]. Dr. Gross will be arranging this. Patient medications reviewed. She seems to be on the current stable regimen. - Time Time with patient: 15-25 minutes - CODE STATUS was discussed, patient remains full code. Surrogate decision-maker unchanged. Multiple medical problems were addressed. More than 50% of the time spent coordinating care, discussing management plans with involved caregivers. Management plans discussed with involved personnels. Medical decision making was of moderate to high complexity , patient's has multiple comorbidities. Medications reviewed and adjusted accordingly: Yes
--- NOTE | 2017-06-10 14:00 | PDOC PROGRESS REPORT ---
Subjective Progress Note for:: 06/10/17 Subjective:: Patient seems to be doing better with gradual improvement. Patient still has intermittent chest discomfort. Patient concerned whether this is coming from the heart or from gastroesophageal reflux or asthma. The only way to know for sure would be to pursue a heart catheterization. Patient tells me that she now wishes to go to [facility] in . I am told that this is already being arranged. Patient is maintaining sinus rhythm. Review of systems: Rest review of systems negative. Medications: Medications have been reviewed. Physical Exam Vital Signs: Temp Pulse Resp BP Pulse Ox 98.1 F 102 H 16 122/70 96 06/10/17 11:08 06/10/17 12:29 06/10/17 12:29 06/10/17 11:08 06/10/17 12:29 Pulse Oximeter Continuous Start: 05/31/17 12: 44 Freq: RTQ4 Status: Active Document 06/10/17 12:29 JDR (Rec: 06/10/17 12:30 [id number]) Pulse Oximetry Assessment Oxygen Saturation (92-100) 96 Oxygen Delivery Method Room Air Equipment Usage Equipment Standby Continuous SpO2 Machine # 11 Intake & Output 06/09/17 06/10/17 06/11/17 06:59 06:59 06:59 Intake Total 1697 3018 355 Balance 1697 3018 355 Weight 75.9 kg 75.8 kg Exam: GENERAL: well-nourished and in no acute distress. Alert and oriented x3 HEAD: Atraumatic, normocephalic. EYES: Pupils equal round and reactive to light, extraocular movements intact, sclera anicteric, conjunctiva are normal. ENT: TMs normal, nares patent, oropharynx clear without exudates. Moist mucous membranes. No oral ulcerations or bleeding gums noted NECK: supple without lymphadenopathy. Trachea is central. No cervical or axillary lymphadenopathy noted. Carotids are 2+, JVD WNL LUNGS: Respiration seems nonlabored, no significant accessory muscle action noted. Breath sounds clear to auscultation bilaterally and equal noted. No wheezes rales or rhonchi noted. No significant dullness noted on percussion. CHEST: Palpation of the chest wall shows no significant chest wall tenderness. No other significant abnormalities noted. HEART: [place] PLASTIC SURGEON, No PSH, 1/6 MEHRDAD aortic area, 1/6 liao systolic murmur mitral area, no rubs, no gallops. ABDOMEN: Soft, no significant tenderness appreciated, normoactive bowel sounds. No guarding, no rebound. No rigidity noted . No masses appreciated. EXTREMITIES: Pedal pulses are 1-2+, no calf tenderness noted. No clubbing or cyanosis.trace to 1+ pedal edema noted NEUROLOGICAL: Focused neurological exam showed no significant neurologic deficit. Normal speech, no focal weakness appreciated. PSYCH: Normal mood, normal affect. Judgment and insight within normal limits. SKIN: No significant ecchymosis, rash, ulcerations or signs of pruritus noted. MUSCULOSKELETAL EXAM: No significant joint swelling noted. Results Laboratory Results: 06/10/17 10:45 06/10/17 05:00 06/10/17 06/10/17 06/10/17 05:00 05:00 10:45 WBC 10.7 H 11.6 H RBC 4.32 4.57 Hgb 8.3 L 8.7 L Hct 26.9 L 28.3 L MCV 62 L 62 L MCH 19.3 L 19.1 L MCHC 31.0 L 30.9 L RDW 19.6 H 19.6 H Plt Count 323 333 Seg Neutrophils % 67.4 60.2 Lymphocytes % 25.4 30.9 Monocytes % 6.9 7.8 Eosinophils % 0.2 1.1 Basophils % 0.1 0.0 Absolute Neutrophils 7.2 7.0 Absolute Lymphocytes 2.7 3.6 Absolute Monocytes 0.7 0.9 Absolute Eosinophils 0.0 0.1 Absolute Basophils 0.0 0.0 Retic Count (auto) 1.34 Absolute Retic 0.058 Sodium 137.7 Potassium 4.2 Chloride 105 Carbon Dioxide 24 Anion Gap 9 BUN 21 H Creatinine 0.71 Est GFR ( Amer) > 60 Est GFR (Non-Af Amer) > 60 Glucose 87 Calcium 8.6 Magnesium 2.3 Iron < 10.1 L TIBC 350 % Saturation UNABLE TO CALCULATE Ferritin 8.88 Vitamin B12 754.0 Folate 3.26 06/06/17 22:42 Sputum AFB Smear Concentration - Final 06/06/17 22:42 Sputum Acid Fast Bacilli Smear - Final 06/06/17 22:42 Sputum AFB Susceptibiility Rapid Grower - Final Not Reportable 06/06/17 22:42 Sputum AFB Susceptibiility Rapid Grower - Final Not Reportable 06/06/17 22:42 Sputum AFB Susceptibiility Rapid Grower - Final Not Reportable 06/06/17 22:42 Sputum AFB Susceptibiility Rapid Grower - Final Not Reportable 06/06/17 22:42 Sputum AFB Susceptibiility Rapid Grower - Final Not Reportable 06/06/17 22:42 Sputum AFB Susceptibiility Rapid Grower - Final Not Reportable 06/06/17 22:42 Sputum AFB Susceptibiility Rapid Grower - Final Not Reportable 06/06/17 22:42 Sputum AFB Susceptibiility Rapid Grower - Final Not Reportable 06/06/17 22:42 Sputum Microbiology Comment - Final Not Reportable 06/06/17 22:42 Sputum Mycobacter marinum Susceptibility - Final Not Reportable 06/06/17 22:42 Sputum Mycobacterium Identification - Final Not Reportable 06/06/17 22:42 Sputum Mycobacter marinum Susceptibility - Final Not Reportable 06/06/17 22:42 Sputum Mycobacter marinum Susceptibility - Final Not Reportable 06/06/17 22:42 Sputum Mycobacter marinum Susceptibility - Final Not Reportable 06/06/17 22:42 Sputum Mycobacter marinum Susceptibility - Final Not Reportable 06/06/17 22:42 Sputum Mycobacter marinum Susceptibility - Final Not Reportable 06/06/17 22:42 Sputum Mycobacter marinum Susceptibility - Final Not Reportable 06/06/17 22:42 Sputum Microbiology Comment - Final Not Reportable 06/06/17 22:42 Sputum M.tuberculosis Complex Suscept Conf - Final Not Reportable 06/06/17 22:42 Sputum M.tuberculosis Complex Susceptibil - Final Not Reportable 06/06/17 22:42 Sputum M.tuberculosis Complex Suscept Conf - Final Not Reportable 06/06/17 22:42 Sputum M.tuberculosis Complex Suscept Conf - Final Not Reportable 06/06/17 22:42 Sputum M.tuberculosis Complex Suscept Conf - Final Not Reportable 06/06/17 22:42 Sputum M.tuberculosis Complex Suscept Conf - Final Not Reportable 06/06/17 22:42 Sputum M.tuberculosis Complex Suscept Conf - Final Not Reportable 06/06/17 22:42 Sputum Nocardia/Actinomyces Susceptibility - Final Not Reportable 06/06/17 22:42 Sputum M. avium Complex Susceptibility - Final Not Reportable 06/06/17 22:42 Sputum M. avium Complex Susceptibility - Final Not Reportable 06/06/17 22:42 Sputum M. avium Complex Susceptibility - Final Not Reportable 06/06/17 22:42 Sputum M. avium Complex Susceptibility - Final Not Reportable 06/06/17 22:42 Sputum M. avium Complex Susceptibility - Final Not Reportable 06/06/17 22:42 Sputum M. avium Complex Susceptibility - Final Not Reportable 06/06/17 22:42 Sputum M. avium Complex Susceptibility - Final Not Reportable 06/06/17 22:42 Sputum M. avium Complex Susceptibility - Final Not Reportable 06/06/17 22:42 Sputum M. avium Complex Susceptibility - Final Not Reportable 06/06/17 22:42 Sputum M. avium Complex Susceptibility - Final Not Reportable 06/06/17 22:42 Sputum Microbiology Comment - Final Not Reportable 06/06/17 22:42 Sputum AFB Susceptibiility Slow Grower - Final Not Reportable 06/06/17 22:42 Sputum AFB Susceptibiility Slow Grower - Final Not Reportable 06/06/17 22:42 Sputum AFB Susceptibiility Slow Grower - Final Not Reportable 06/06/17 22:42 Sputum AFB Susceptibiility Slow Grower - Final Not Reportable 06/06/17 22:42 Sputum AFB Susceptibiility Slow Grower - Final Not Reportable 06/06/17 22:42 Sputum AFB Susceptibiility Slow Grower - Final Not Reportable 06/06/17 22:42 Sputum AFB Susceptibiility Slow Grower - Final Not Reportable 06/06/17 22:42 Sputum AFB Susceptibiility Slow Grower - Final Not Reportable 06/06/17 22:42 Sputum AFB Susceptibiility Slow Grower - Final Not Reportable 06/06/17 22:42 Sputum AFB Susceptibiility Slow Grower - Final Not Reportable 06/06/17 22:42 Sputum Microbiology Comment - Final Not Reportable 06/06/17 22:42 Sputum Nocardia Susceptibility - Final Not Reportable 06/06/17 22:42 Sputum Nocardia Susceptibility - Final PLASTIC SURGEON 06/06/17 22:42 Sputum Nocardia Susceptibility - Final Not Reportable 06/06/17 22:42 Sputum Nocardia Susceptibility - Final Not Reportable 06/06/17 22:42 Sputum Nocardia Susceptibility - Final Not Reportable 06/06/17 22:42 Sputum Nocardia Susceptibility - Final Not Reportable 06/06/17 22:42 Sputum Nocardia Susceptibility - Final Not Reportable 06/06/17 22:42 Sputum Nocardia Susceptibility - Final Not Reportable 06/06/17 22:42 Sputum Nocardia Susceptibility - Final Not Reportable 06/06/17 22:42 Sputum Nocardia Susceptibility - Final Not Reportable 06/06/17 22:42 Sputum Microbiology Comment - Final Not Reportable 05/31/17 06/01/17 06/01/17 08:30 05:29 05:29 Creatine Kinase 166 H CK-MB (CK-2) Troponin I 0.373 NT-Pro-B Natriuret Pep 2150 H 06/05/17 06/08/17 06/09/17 12:45 14:35 00:41 Creatine Kinase CK-MB (CK-2) 2.96 Troponin I 0.026 0.053 NT-Pro-B Natriuret Pep 1090 H 06/09/17 06/09/17 05:35 05:35 Creatine Kinase CK-MB (CK-2) Troponin I 0.064 NT-Pro-B Natriuret Pep 1160 H Impressions: Chest CT 05/31/17 00:00 IMPRESSION: NORMAL CT OF THE CHEST WITH IV CONTRAST. Facial Bones CT 05/31/17 00:00 IMPRESSION: Mild sinus disease. Chest X-Ray 06/01/17 08:38 IMPRESSION: NO SIGNIFICANT RADIOGRAPHIC FINDING IN THE CHEST. Guidance Fluoroscopy 06/04/17 00:00 IMPRESSION: SUCCESSFUL PLACEMENT OF A 5 FR DUAL LUMEN 32 CM PICC IN THE RIGHT BASILIC VEIN. Interventional Vascular Procedure 06/04/17 00:00 IMPRESSION: SUCCESSFUL PLACEMENT OF A 5 FR DUAL LUMEN 32 CM PICC IN THE RIGHT BASILIC VEIN. PICC Line Insertion 06/04/17 00:00 IMPRESSION: SUCCESSFUL PLACEMENT OF A 5 FR DUAL LUMEN 32 CM PICC IN THE RIGHT BASILIC VEIN. Assessment & Plan - Diagnosis (1) Elevated troponin Is this a current diagnosis for this admission?: Yes (2) Chest pain Qualifiers: Chest pain type: unspecified Qualified Code(s): R07.9 - Chest pain, unspecified Is this a current diagnosis for this admission?: Yes (3) COPD exacerbation Is this a current diagnosis for this admission?: Yes (4) Daytime hypersomnolence Is this a current diagnosis for this admission?: Yes (5) Tobacco abuse Is this a current diagnosis for this admission?: Yes - Notes Notes: Patient continues with intermittent chest pain. Patient is on good medical regimen. Will go ahead and add Ranexa. Will repeat an EKG in the morning. Continue with other on current management plans. Patient has been encouraged to quit smoking. Patient currently on double dose proton pump inhibitor. - Time Time with patient: 15-25 minutes - CODE STATUS was discussed, patient remains full code. Surrogate decision-maker unchanged. Multiple medical problems were addressed. More than 50% of the time spent coordinating care, discussing management plans with involved caregivers. Management plans discussed with involved personnels. Medical decision making was of moderate to high complexity , patient's has multiple comorbidities. Medications reviewed and adjusted accordingly: Yes
--- NOTE | 2017-06-10 14:01 | EKG REPORT ---
SEVERITY:- ABNORMAL ECG - SINUS RHYTHM NONSPECIFIC T ABNORMALITIES, LATERAL LEADS : Confirmed by: Dick Locke MD 10-Jun-2017 14:00:33
[2017-06-10] MEDS: BUTALB/ACETAMINOPHEN/CAFFEINE 1 TAB EACH PO PRN (16:30)
[2017-06-10] MEDS: RANOLAZINE 500 MG TAB.SR.12H PO SCH (21:58)
[2017-06-10] MEDS: ATORVASTATIN CALCIUM 40 MG TABLET PO SCH (21:59)
[2017-06-11] MEDS: BENZONATATE 100 MG CAPSULE PO SCH ×3 (01:09→17:40)
[2017-06-11] MEDS: LORATADINE/PSEUDOEPHEDRINE SUL 10-240 MG TAB.SR.24H PO SCH ×2 (05:49→17:40)
[2017-06-11] MEDS: LANSOPRAZOLE 30 MG TAB.RAP.DR PO SCH ×2 (05:49→16:47)
[2017-06-11] MEDS: NITROGLYCERIN 2% OINTMENT 1 GM PACKET TP SCH ×3 (05:50→17:40)
[2017-06-11] MEDS: CYCLOBENZAPRINE HCL 10 MG TABLET PO PRN ×2 (05:55→14:04)
[2017-06-11] MEDS: BUTALB/ACETAMINOPHEN/CAFFEINE 1 TAB EACH PO PRN ×2 (05:55→17:49)
[2017-06-11] MEDS: VERAPAMIL HCL 80 MG TABLET PO SCH ×3 (05:56→21:24)
[2017-06-11] MEDS: HEPARIN SOD (PORCINE) 5,000 UNIT/ML 1 ML SYRINGE SUBCUT SCH (05:59)
[2017-06-11] MEDS: ONDANSETRON HCL INJ/PF 4 MG/2 ML SDV IV SCH ×3 (05:59→21:37)
--- NOTE | 2017-06-11 06:18 | EKG REPORT ---
SEVERITY:- NORMAL ECG - SINUS RHYTHM : Confirmed by: Dick Locke MD 11-Jun-2017 06:17:33
[2017-06-11] MEDS: IPRATROPIUM/ALBUTEROL 0.5-2.5 MG/3 ML AMPUL NEB SCH ×4 (07:54→19:49)
[2017-06-11] MEDS: HYDROCODONE/ACETAMINOPHEN 5-325 MG TABLET PO PRN ×2 (08:25→14:04)
[2017-06-11] MEDS: PREDNISONE 20 MG TABLET PO SCH (09:22)
[2017-06-11] MEDS: RANOLAZINE 500 MG TAB.SR.12H PO SCH ×2 (09:23→21:23)
[2017-06-11] MEDS: GUAIFENESIN 600 MG TABLET.SA PO SCH ×2 (09:23→21:28)
[2017-06-11] MEDS: IPRATROPIUM BROMIDE HFA 17 MCG/PUFF 200 PUFF/12.9 GM MDI IH SCH (09:24)
[2017-06-11] MEDS: LEVOFLOXACIN 500 MG/D5W RTU 500 MG/100 ML RTUPB IV SCH (09:24)
[2017-06-11] MEDS: TIOTROPIUM BROMIDE DPI 5 CAP/KIT (18 MCG/CAP) IH SCH (09:25)
[2017-06-11] MEDS: CIPROFLOXACIN-HC OTIC SUSP 10 ML AD SCH (09:25)
[2017-06-11] MEDS: NORMAL SALINE 10 ML SDV (SCHEDULED) IV SCH ×2 (09:26→21:19)
[2017-06-11] MEDS: NYSTATIN 500000 UNIT/5 ML UDCUP PO SCH ×4 (09:26→21:37)
[2017-06-11] MEDS ORDERED: METOPROLOL SUCCINATE 25 MG TAB.SR.24H PO SCH (10:00)
--- NOTE | 2017-06-11 11:49 | PDOC PROGRESS REPORT ---
Subjective Progress Note for:: 06/11/17 Subjective:: Patient is seen on morning rounds, resting comfortably while on room air. She denies dyspnea, orthopnea, and. She does report continued intermittent chest discomfort that does not seem to be associated with activity, however, does improve with rest. She denies radiation of the pain. The pain is described as substernal, sharp, tight. She has no associated symptoms and denies headache, dizziness, palpitation, dyspnea, nausea, diaphoresis. She states that she feels much improved overall. She does report slight anxiety with regard to her planned cardiac catheterization at [facility]. She has no new questions or concerns. Physical Exam Vital Signs: Temp Pulse Resp BP Pulse Ox 98.8 F 87 16 111/68 95 06/11/17 07:53 06/11/17 07:56 06/11/17 07:56 06/11/17 07:53 06/11/17 07:56 Pulse Oximeter Continuous Start: 05/31/17 12: 44 Freq: RTQ4 Status: Active Document 06/11/17 07:56 J (Rec: 06/11/17 07:57 J [id number]) Pulse Oximetry Assessment Oxygen Saturation (92-100) 95 Oxygen Delivery Method Room Air Fraction of Inspired Oxygen (FIO2) 21 Equipment Usage Equipment Standby Continuous SpO2 Machine # 11 Intake & Output 06/10/17 06/11/17 06/12/17 06:59 06:59 06:59 Intake Total 3018 2173 Balance 3018 2173 Weight 75.8 kg 74.2 kg General appearance: PRESENT: no acute distress, well-developed, well-nourished Head exam: PRESENT: atraumatic, normocephalic Eye exam: PRESENT: conjunctiva pink, EOMI, PERRLA. ABSENT: scleral icterus Ear exam: PRESENT: normal external ear exam Mouth exam: PRESENT: moist, tongue midline Neck exam: ABSENT: carotid bruit, JVD, lymphadenopathy, thyromegaly Respiratory exam: PRESENT: clear to auscultation daniel. ABSENT: rales, rhonchi, wheezes Cardiovascular exam: PRESENT: RRR. ABSENT: diastolic murmur, rubs, systolic murmur Pulses: PRESENT: normal dorsalis pedis pul Vascular exam: PRESENT: normal capillary refill GI/Abdominal exam: PRESENT: normal bowel sounds, soft. ABSENT: distended, guarding, mass, organolmegaly, rebound, tenderness Rectal exam: PRESENT: deferred Extremities exam: PRESENT: full ROM. ABSENT: calf tenderness, clubbing, pedal edema Neurological exam: PRESENT: alert, awake, oriented to person, oriented to place , oriented to time, oriented to situation, CN II-XII grossly intact. ABSENT: motor sensory deficit Psychiatric exam: PRESENT: anxious, appropriate affect, normal mood. ABSENT: homicidal ideation, suicidal ideation Skin exam: PRESENT: dry, intact, warm. ABSENT: cyanosis, rash Results Laboratory Results: 06/10/17 10:45 06/10/17 05:00 06/10/17 10:45 WBC 11.6 H RBC 4.57 Hgb 8.7 L Hct 28.3 L MCV 62 L MCH 19.1 L MCHC 30.9 L RDW 19.6 H Plt Count 333 Seg Neutrophils % 60.2 Lymphocytes % 30.9 Monocytes % 7.8 Eosinophils % 1.1 Basophils % 0.0 Absolute Neutrophils 7.0 Absolute Lymphocytes 3.6 Absolute Monocytes 0.9 Absolute Eosinophils 0.1 Absolute Basophils 0.0 06/06/17 22:42 Sputum AFB Smear Concentration - Final 06/06/17 22:42 Sputum Acid Fast Bacilli Smear - Final 06/06/17 22:42 Sputum AFB Susceptibiility Rapid Grower - Final Not Reportable 06/06/17 22:42 Sputum AFB Susceptibiility Rapid Grower - Final Not Reportable 06/06/17 22:42 Sputum AFB Susceptibiility Rapid Grower - Final Not Reportable 06/06/17 22:42 Sputum AFB Susceptibiility Rapid Grower - Final Not Reportable 06/06/17 22:42 Sputum AFB Susceptibiility Rapid Grower - Final Not Reportable 06/06/17 22:42 Sputum AFB Susceptibiility Rapid Grower - Final Not Reportable 06/06/17 22:42 Sputum AFB Susceptibiility Rapid Grower - Final Not Reportable 06/06/17 22:42 Sputum AFB Susceptibiility Rapid Grower - Final Not Reportable 06/06/17 22:42 Sputum Microbiology Comment - Final Not Reportable 06/06/17 22:42 Sputum Mycobacter marinum Susceptibility - Final Not Reportable 06/06/17 22:42 Sputum Mycobacterium Identification - Final Not Reportable 06/06/17 22:42 Sputum Mycobacter marinum Susceptibility - Final Not Reportable 06/06/17 22:42 Sputum Mycobacter marinum Susceptibility - Final Not Reportable 06/06/17 22:42 Sputum Mycobacter marinum Susceptibility - Final Not Reportable 06/06/17 22:42 Sputum Mycobacter marinum Susceptibility - Final Not Reportable 06/06/17 22:42 Sputum Mycobacter marinum Susceptibility - Final Not Reportable 06/06/17 22:42 Sputum Mycobacter marinum Susceptibility - Final Not Reportable 06/06/17 22:42 Sputum Microbiology Comment - Final Not Reportable 06/06/17 22:42 Sputum M.tuberculosis Complex Suscept Conf - Final Not Reportable 06/06/17 22:42 Sputum M.tuberculosis Complex Susceptibil - Final Not Reportable 06/06/17 22:42 Sputum M.tuberculosis Complex Suscept Conf - Final Not Reportable 06/06/17 22:42 Sputum M.tuberculosis Complex Suscept Conf - Final Not Reportable 06/06/17 22:42 Sputum M.tuberculosis Complex Suscept Conf - Final Not Reportable 06/06/17 22:42 Sputum M.tuberculosis Complex Suscept Conf - Final Not Reportable 06/06/17 22:42 Sputum M.tuberculosis Complex Suscept Conf - Final Not Reportable 06/06/17 22:42 Sputum Nocardia/Actinomyces Susceptibility - Final Not Reportable 06/06/17 22:42 Sputum M. avium Complex Susceptibility - Final Not Reportable 06/06/17 22:42 Sputum M. avium Complex Susceptibility - Final Not Reportable 06/06/17 22:42 Sputum M. avium Complex Susceptibility - Final Not Reportable 06/06/17 22:42 Sputum M. avium Complex Susceptibility - Final Not Reportable 06/06/17 22:42 Sputum M. avium Complex Susceptibility - Final Not Reportable 06/06/17 22:42 Sputum M. avium Complex Susceptibility - Final Not Reportable 06/06/17 22:42 Sputum M. avium Complex Susceptibility - Final Not Reportable 06/06/17 22:42 Sputum M. avium Complex Susceptibility - Final Not Reportable 06/06/17 22:42 Sputum M. avium Complex Susceptibility - Final Not Reportable 06/06/17 22:42 Sputum M. avium Complex Susceptibility - Final Not Reportable 06/06/17 22:42 Sputum Microbiology Comment - Final Not Reportable 06/06/17 22:42 Sputum AFB Susceptibiility Slow Grower - Final Not Reportable 06/06/17 22:42 Sputum AFB Susceptibiility Slow Grower - Final Not Reportable 06/06/17 22:42 Sputum AFB Susceptibiility Slow Grower - Final Not Reportable 06/06/17 22:42 Sputum AFB Susceptibiility Slow Grower - Final Not Reportable 06/06/17 22:42 Sputum AFB Susceptibiility Slow Grower - Final Not Reportable 06/06/17 22:42 Sputum AFB Susceptibiility Slow Grower - Final Not Reportable 06/06/17 22:42 Sputum AFB Susceptibiility Slow Grower - Final Not Reportable 06/06/17 22:42 Sputum AFB Susceptibiility Slow Grower - Final Not Reportable 06/06/17 22:42 Sputum AFB Susceptibiility Slow Grower - Final Not Reportable 06/06/17 22:42 Sputum AFB Susceptibiility Slow Grower - Final Not Reportable 06/06/17 22:42 Sputum Microbiology Comment - Final Not Reportable 06/06/17 22:42 Sputum Nocardia Susceptibility - Final Not Reportable 06/06/17 22:42 Sputum Nocardia Susceptibility - Final LABORER PIPELINE 06/06/17 22:42 Sputum Nocardia Susceptibility - Final Not Reportable 06/06/17 22:42 Sputum Nocardia Susceptibility - Final Not Reportable 06/06/17 22:42 Sputum Nocardia Susceptibility - Final Not Reportable 06/06/17 22:42 Sputum Nocardia Susceptibility - Final Not Reportable 06/06/17 22:42 Sputum Nocardia Susceptibility - Final Not Reportable 06/06/17 22:42 Sputum Nocardia Susceptibility - Final Not Reportable 06/06/17 22:42 Sputum Nocardia Susceptibility - Final Not Reportable 06/06/17 22:42 Sputum Nocardia Susceptibility - Final Not Reportable 06/06/17 22:42 Sputum Microbiology Comment - Final Not Reportable 05/31/17 06/01/17 06/01/17 08:30 05:29 05:29 Creatine Kinase 166 H CK-MB (CK-2) Troponin I 0.373 NT-Pro-B Natriuret Pep 2150 H 06/05/17 06/08/17 06/09/17 12:45 14:35 00:41 Creatine Kinase CK-MB (CK-2) 2.96 Troponin I 0.026 0.053 NT-Pro-B Natriuret Pep 1090 H 06/09/17 06/09/17 05:35 05:35 Creatine Kinase CK-MB (CK-2) Troponin I 0.064 NT-Pro-B Natriuret Pep 1160 H Impressions: Chest CT 05/31/17 00:00 IMPRESSION: NORMAL CT OF THE CHEST WITH IV CONTRAST. Facial Bones CT 05/31/17 00:00 IMPRESSION: Mild sinus disease. Chest X-Ray 06/01/17 08:38 IMPRESSION: NO SIGNIFICANT RADIOGRAPHIC FINDING IN THE CHEST. Guidance Fluoroscopy 06/04/17 00:00 IMPRESSION: SUCCESSFUL PLACEMENT OF A 5 FR DUAL LUMEN 32 CM PICC IN THE RIGHT BASILIC VEIN. Interventional Vascular Procedure 06/04/17 00:00 IMPRESSION: SUCCESSFUL PLACEMENT OF A 5 FR DUAL LUMEN 32 CM PICC IN THE RIGHT BASILIC VEIN. PICC Line Insertion 06/04/17 00:00 IMPRESSION: SUCCESSFUL PLACEMENT OF A 5 FR DUAL LUMEN 32 CM PICC IN THE RIGHT BASILIC VEIN. Assessment & Plan - Diagnosis (1) Cardiac ischemia Is this a current diagnosis for this admission?: Yes Plan: Patient reports intermittent chest pain described as heaviness and tightness. Pain is not appreciably worsened by activity, however does improve with rest and BiPAP use. Of note, patient reports that the chest pain precipitated her respiratory difficulties. Admission labs did show an initial upward trend of troponin from 0.050 to 0.373. Echocaradiogram completed. D-dimer negative. Stress test showed mild reversible ischemia. Repeat troponins were slightly elevated. The patient's family has requested that she be transferred to [facility] for catheterization. They have accepted the patient and transportation has been arranged for her to leave early Sunday. 1- Appreciate cardiology consultation and recommendations 2- Transfer to [facility] in the morning for cardiac catheterization 3- Continue Raneza and nitropaste 4- Atorvastatin qHS 5- Remain on telemetry (2) Acute diastolic (congestive) heart failure Is this a current diagnosis for this admission?: Yes Plan: The patient had an elevated BNP. She responded nicely and her respiratory distress improved after receiving IV Lasix. BNP is still elevated but improved. Echocardiogram showed a normal left ventricular function and no evidence of diastolic dysfunction. It is believed that the patient is having a mild diastolic congestive heart failure exacerbation in spite of a relatively normal echocardiogram. 1- Apprecaite cardiology consultation and recommendations 2- Cardiac diet w/ daily weights. 3- Continue metoprolol (3) Acute respiratory failure Qualifiers: Respiratory failure complication: hypoxia and hypercapnia Qualified Code(s) : J96.01 - Acute respiratory failure with hypoxia; J96.02 - Acute respiratory failure with hypercapnia; J96.02 - Acute respiratory failure with hypercapnia; J96.02 - Acute respiratory failure with hypercapnia Is this a current diagnosis for this admission?: Yes Plan: Resolved. She was admitted with acute on chronic respiratory failure secondary to COPD exacerbation. Currently stable on room air. Final blood cultures: no growth Sputum culture: liao sensitive Pseudomonas stutzeri; completed full course of Levaquin 1- Appreciate Pulmonology consultation and recommendations (4) COPD exacerbation Is this a current diagnosis for this admission?: Yes Plan: Respiratory status has improved evidently. She has been transitioned over to p.o. prednisone; will begin tapering. 1- supplemental oxygen to keep saturations greater than 88% 2- DuoNeb's as needed 3- scheduled Spiriva and Atrovent hfa 4- Mucinex bid (5) Elevated troponin Is this a current diagnosis for this admission?: Yes Plan: Elevated troponin of uncertain etiology (0.050--> 0.373); patient presented with acute respiratory failure secondary to COPD exacerbation. Stress testing did show a mild reversible cardiac ischemia. I believe the patient had a mild non-ST elevation myocardial infarction. She is currently on metoprolol, Ranexa , nitro paste. She continues to have stable angina that improves rapidly with rest. Plan is for her to transfer to [facility] for cardiac catheterization in the morning. Plan as above. (6) Tobacco abuse Is this a current diagnosis for this admission?: Yes Plan: Smoking cessation advised, patient declines nicotine replacement therapy at this time. (7) Costochondral pain Is this a current diagnosis for this admission?: Yes Plan: Resolved. (8) Sinusitis Qualifiers: Sinusitis location: frontal Chronicity: chronic Qualified Code(s): J32.1 - Chronic frontal sinusitis Is this a current diagnosis for this admission?: Yes Plan: Patient has received full course of antibiotic therapy; will not require antibiotics at discharge for chronic sinusitis. Will benefit primarily from symptomatic treatment such as occasional NSAID, decongestant use, and nasal flushing such as that by a Interior pot. (9) Anemia Qualifiers: Anemia type: iron deficiency Is this a current diagnosis for this admission?: Yes Plan: The patient had a precipitous drop in her hemoglobin. She was on scheduled ibuprofen for pleuritic chest pain related to a COPD exacerbation and was receiving DVT prophylaxis with heparin. These have since been discontinued. We will attempt to wean her off her prednisone as quickly as possible. She does have a history of GI bleeding in the past. Hemoglobin is slightly improved today (9.5-->8.3-->8.7); we will continue to monitor. - Time Time Spent with patient: 25-34 minutes Anticipated discharge: [facility] Within: within 24 hours
--- NOTE | 2017-06-11 12:46 | PDOC PROGRESS REPORT ---
Subjective Progress Note for:: 06/11/17 - Acute on chronic respiratory failure Subjective:: Patient states that she Is feeling much better Physical Exam Vital Signs: Temp Pulse Resp BP Pulse Ox 98.8 F 87 16 111/68 95 06/11/17 07:53 06/11/17 07:56 06/11/17 07:56 06/11/17 07:53 06/11/17 07:56 Pulse Oximeter Continuous Start: 05/31/17 12: 44 Freq: RTQ4 Status: Active Document 06/11/17 07:56 JDR (Rec: 06/11/17 07:57 JDR [email or web address]) Pulse Oximetry Assessment Oxygen Saturation (92-100) 95 Oxygen Delivery Method Room Air Fraction of Inspired Oxygen (FIO2) 21 Equipment Usage Equipment Standby Continuous SpO2 Machine # 11 Intake & Output 06/10/17 06/11/17 06/12/17 06:59 06:59 06:59 Intake Total 3018 2173 Balance 3018 2173 Weight 75.8 kg 74.2 kg General appearance: PRESENT: no acute distress, cooperative, disheveled, thin, well-developed Head exam: PRESENT: atraumatic, normocephalic Eye exam: PRESENT: conjunctiva pale, EOMI Mouth exam: PRESENT: dry mucosa, neck supple, tongue midline Neck exam: ABSENT: carotid bruit, JVD, lymphadenopathy, thyromegaly Respiratory exam: PRESENT: decreased breath sounds, prolonged expiratory phas, rhonchi, symmetrical, unlabored, wheezes. ABSENT: accessory muscle use, chest wall tenderness, clear to auscultation daniel, crackles, rales, retraction, stridor , tachypnea Cardiovascular exam: PRESENT: RRR, +S1, +S2 Pulses: PRESENT: normal radial pulses GI/Abdominal exam: PRESENT: normal bowel sounds, soft. ABSENT: distended, guarding, mass, organolmegaly, rebound, tenderness Extremities exam: ABSENT: calf tenderness, clubbing, full ROM, joint swelling, pedal edema Musculoskeletal exam: ABSENT: deformity, dislocation, full ROM Neurological exam: PRESENT: alert, awake Psychiatric exam: PRESENT: normal mood Skin exam: PRESENT: dry, warm Results Laboratory Results: 06/10/17 10:45 06/10/17 05:00 06/10/17 10:45 WBC 11.6 H RBC 4.57 Hgb 8.7 L Hct 28.3 L MCV 62 L MCH 19.1 L MCHC 30.9 L RDW 19.6 H Plt Count 333 Seg Neutrophils % 60.2 Lymphocytes % 30.9 Monocytes % 7.8 Eosinophils % 1.1 Basophils % 0.0 Absolute Neutrophils 7.0 Absolute Lymphocytes 3.6 Absolute Monocytes 0.9 Absolute Eosinophils 0.1 Absolute Basophils 0.0 06/06/17 22:42 Sputum AFB Smear Concentration - Final 06/06/17 22:42 Sputum Acid Fast Bacilli Smear - Final 06/06/17 22:42 Sputum AFB Susceptibiility Rapid Grower - Final Not Reportable 06/06/17 22:42 Sputum AFB Susceptibiility Rapid Grower - Final Not Reportable 06/06/17 22:42 Sputum [employer]B Susceptibiility Rapid Grower - Final Not Reportable 06/06/17 22:42 Sputum AFB Susceptibiility Rapid Grower - Final Not Reportable 06/06/17 22:42 Sputum AFB Susceptibiility Rapid Grower - Final Not Reportable 06/06/17 22:42 Sputum AFB Susceptibiility Rapid Grower - Final Not Reportable 06/06/17 22:42 Sputum AFB Susceptibiility Rapid Grower - Final Not Reportable 06/06/17 22:42 Sputum AFB Susceptibiility Rapid Grower - Final Not Reportable 06/06/17 22:42 Sputum Microbiology Comment - Final Not Reportable 06/06/17 22:42 Sputum Mycobacter marinum Susceptibility - Final Not Reportable 06/06/17 22:42 Sputum Mycobacterium Identification - Final Not Reportable 06/06/17 22:42 Sputum Mycobacter marinum Susceptibility - Final Not Reportable 06/06/17 22:42 Sputum Mycobacter marinum Susceptibility - Final Not Reportable 06/06/17 22:42 Sputum Mycobacter marinum Susceptibility - Final Not Reportable 06/06/17 22:42 Sputum Mycobacter marinum Susceptibility - Final Not Reportable 06/06/17 22:42 Sputum Mycobacter marinum Susceptibility - Final Not Reportable 06/06/17 22:42 Sputum Mycobacter marinum Susceptibility - Final Not Reportable 06/06/17 22:42 Sputum Microbiology Comment - Final Not Reportable 06/06/17 22:42 Sputum M.tuberculosis Complex Suscept Conf - Final Not Reportable 06/06/17 22:42 Sputum M.tuberculosis Complex Susceptibil - Final Not Reportable 06/06/17 22:42 Sputum M.tuberculosis Complex Suscept Conf - Final Not Reportable 06/06/17 22:42 Sputum M.tuberculosis Complex Suscept Conf - Final Not Reportable 06/06/17 22:42 Sputum M.tuberculosis Complex Suscept Conf - Final Not Reportable 06/06/17 22:42 Sputum M.tuberculosis Complex Suscept Conf - Final Not Reportable 06/06/17 22:42 Sputum M.tuberculosis Complex Suscept Conf - Final Not Reportable 06/06/17 22:42 Sputum Nocardia/Actinomyces Susceptibility - Final Not Reportable 06/06/17 22:42 Sputum M. avium Complex Susceptibility - Final Not Reportable 06/06/17 22:42 Sputum M. avium Complex Susceptibility - Final Not Reportable 06/06/17 22:42 Sputum M. avium Complex Susceptibility - Final Not Reportable 06/06/17 22:42 Sputum M. avium Complex Susceptibility - Final Not Reportable 06/06/17 22:42 Sputum M. avium Complex Susceptibility - Final Not Reportable 06/06/17 22:42 Sputum M. avium Complex Susceptibility - Final Not Reportable 06/06/17 22:42 Sputum M. avium Complex Susceptibility - Final Not Reportable 06/06/17 22:42 Sputum M. avium Complex Susceptibility - Final Not Reportable 06/06/17 22:42 Sputum M. avium Complex Susceptibility - Final Not Reportable 06/06/17 22:42 Sputum M. avium Complex Susceptibility - Final Not Reportable 06/06/17 22:42 Sputum Microbiology Comment - Final Not Reportable 06/06/17 22:42 Sputum AFB Susceptibiility Slow Grower - Final Not Reportable 06/06/17 22:42 Sputum AFB Susceptibiility Slow Grower - Final Not Reportable 06/06/17 22:42 Sputum AFB Susceptibiility Slow Grower - Final Not Reportable 06/06/17 22:42 Sputum AFB Susceptibiility Slow Grower - Final Not Reportable 06/06/17 22:42 Sputum AFB Susceptibiility Slow Grower - Final Not Reportable 06/06/17 22:42 Sputum AFB Susceptibiility Slow Grower - Final Not Reportable 06/06/17 22:42 Sputum AFB Susceptibiility Slow Grower - Final Not Reportable 06/06/17 22:42 Sputum AFB Susceptibiility Slow Grower - Final Not Reportable 06/06/17 22:42 Sputum AFB Susceptibiility Slow Grower - Final Not Reportable 06/06/17 22:42 Sputum AFB Susceptibiility Slow Grower - Final Not Reportable 06/06/17 22:42 Sputum Microbiology Comment - Final Not Reportable 06/06/17 22:42 Sputum Nocardia Susceptibility - Final Not Reportable 06/06/17 22:42 Sputum Nocardia Susceptibility - Final [employer]DEL [employer]KER 06/06/17 22:42 Sputum Nocardia Susceptibility - Final Not Reportable 06/06/17 22:42 Sputum Nocardia Susceptibility - Final Not Reportable 06/06/17 22:42 Sputum Nocardia Susceptibility - Final Not Reportable 06/06/17 22:42 Sputum Nocardia Susceptibility - Final Not Reportable 06/06/17 22:42 Sputum Nocardia Susceptibility - Final Not Reportable 06/06/17 22:42 Sputum Nocardia Susceptibility - Final Not Reportable 06/06/17 22:42 Sputum Nocardia Susceptibility - Final Not Reportable 06/06/17 22:42 Sputum Nocardia Susceptibility - Final Not Reportable 06/06/17 22:42 Sputum Microbiology Comment - Final Not Reportable 05/31/17 06/01/17 06/01/17 08:30 05:29 05:29 Creatine Kinase 166 H CK-MB (CK-2) Troponin I 0.373 NT-Pro-B Natriuret Pep 2150 H 06/05/17 06/08/17 06/09/17 12:45 14:35 00:41 Creatine Kinase CK-MB (CK-2) 2.96 Troponin I 0.026 0.053 NT-Pro-B Natriuret Pep 1090 H 06/09/17 06/09/17 05:35 05:35 Creatine Kinase CK-MB (CK-2) Troponin I 0.064 NT-Pro-B Natriuret Pep 1160 H Impressions: Chest CT 05/31/17 00:00 IMPRESSION: NORMAL CT OF THE CHEST WITH IV CONTRAST. Facial Bones CT 05/31/17 00:00 IMPRESSION: Mild sinus disease. Chest X-Ray 06/01/17 08:38 IMPRESSION: NO SIGNIFICANT RADIOGRAPHIC FINDING IN THE CHEST. Guidance Fluoroscopy 06/04/17 00:00 IMPRESSION: SUCCESSFUL PLACEMENT OF A 5 FR DUAL LUMEN 32 CM PICC IN THE RIGHT BASILIC VEIN. Interventional Vascular Procedure 06/04/17 00:00 IMPRESSION: SUCCESSFUL PLACEMENT OF A 5 FR DUAL LUMEN 32 CM PICC IN THE RIGHT BASILIC VEIN. PICC Line Insertion 06/04/17 00:00 IMPRESSION: SUCCESSFUL PLACEMENT OF A 5 FR DUAL LUMEN 32 CM PICC IN THE RIGHT BASILIC VEIN. Assessment & Plan - Diagnosis (1) COPD exacerbation Is this a current diagnosis for this admission?: Yes Plan: Continues to slowly improve (2) Respiratory distress Is this a current diagnosis for this admission?: No (3) Tobacco abuse Is this a current diagnosis for this admission?: Yes Plan: transdermal nicotine (4) Sinusitis Qualifiers: Sinusitis location: frontal Chronicity: chronic Qualified Code(s): J32.1 - Chronic frontal sinusitis Is this a current diagnosis for this admission?: Yes (5) Weight loss Is this a current diagnosis for this admission?: Yes Plan: Pulmonary cachexia? (6) Daytime hypersomnolence Is this a current diagnosis for this admission?: Yes Plan: Please schedule for sleep study at the time of discharge
[2017-06-11] MEDS: ATORVASTATIN CALCIUM 40 MG TABLET PO SCH (21:27)
[2017-06-12] MEDS: NITROGLYCERIN 2% OINTMENT 1 GM PACKET TP SCH ×2 (00:11→05:28)
[2017-06-12] MEDS: BUTALB/ACETAMINOPHEN/CAFFEINE 1 TAB EACH PO PRN (00:11)
[2017-06-12] MEDS: BENZONATATE 100 MG CAPSULE PO SCH (01:26)
[2017-06-12 05:18] VITALS: BP 104/60
[2017-06-12] MEDS: LANSOPRAZOLE 30 MG TAB.RAP.DR PO SCH (05:27)
[2017-06-12] MEDS: ONDANSETRON HCL INJ/PF 4 MG/2 ML SDV IV SCH (05:27)
[2017-06-12] MEDS: LORATADINE/PSEUDOEPHEDRINE SUL 10-240 MG TAB.SR.24H PO SCH (05:28)
[2017-06-12] MEDS: HYDROCODONE/ACETAMINOPHEN 5-325 MG TABLET PO PRN (05:30)
[2017-06-12] MEDS: VERAPAMIL HCL 80 MG TABLET PO SCH (05:33)
[2017-06-12] MEDS ORDERED: PREDNISONE 20 MG TABLET PO SCH (10:00)
--- NOTE | 2017-06-12 16:17 | PDOC PROGRESS REPORT ---
Subjective Progress Note for:: 06/11/17 Subjective:: Patient seems to be doing better with gradual improvement. Patient still has intermittent chest discomfort. Patient concerned whether this is coming from the heart or from gastroesophageal reflux or asthma. The only way to know for sure would be to pursue a heart catheterization. Patient tells me that she now wishes to go to [facility] in . I am told that this is already being arranged. Patient is maintaining sinus rhythm. Review of systems: Rest review of systems negative. Medications: Medications have been reviewed. Physical Exam Vital Signs: Temp Pulse Resp BP Pulse Ox 98.6 F 96 16 124/74 98 06/11/17 19:25 06/11/17 20:22 06/11/17 19:49 06/11/17 19:25 06/11/17 19:49 Pulse Oximeter Continuous Start: 05/31/17 12: 44 Freq: RTQ4 Status: Active Document 06/11/17 19:49 [facility] (Rec: 06/11/17 21:33 [facility] [email or web address]) Pulse Oximetry Assessment Oxygen Saturation (92-100) 98 Oxygen Delivery Method Room Air Fraction of Inspired Oxygen (FIO2) 21 Equipment Usage Equipment Standby Continuous SpO2 Machine # N-11 Intake & Output 06/10/17 06/11/17 06/12/17 06:59 06:59 06:59 Intake Total 3018 2173 2502 Balance 3018 2173 2502 Weight 75.8 kg 74.2 kg Exam: GENERAL: well-nourished and in no acute distress. Alert and oriented x3 HEAD: Atraumatic, normocephalic. EYES: Pupils equal round and reactive to light, extraocular movements intact, sclera anicteric, conjunctiva are normal. ENT: TMs normal, nares patent, oropharynx clear without exudates. Moist mucous membranes. No oral ulcerations or bleeding gums noted NECK: supple without lymphadenopathy. Trachea is central. No cervical or axillary lymphadenopathy noted. Carotids are 2+, JVD WNL LUNGS: Respiration seems nonlabored, no significant accessory muscle action noted. Breath sounds clear to auscultation bilaterally and equal noted. No wheezes rales or rhonchi noted. No significant dullness noted on percussion. CHEST: Palpation of the chest wall shows no significant chest wall tenderness. No other significant abnormalities noted. HEART: [place] [employer], No PSH, 1/6 MEHRDAD aortic area, 1/6 liao systolic murmur mitral area, no rubs, no gallops. ABDOMEN: Soft, no significant tenderness appreciated, normoactive bowel sounds. No guarding, no rebound. No rigidity noted . No masses appreciated. EXTREMITIES: Pedal pulses are 1-2+, no calf tenderness noted. No clubbing or cyanosis.trace + pedal edema noted NEUROLOGICAL: Focused neurological exam showed no significant neurologic deficit. Normal speech, no focal weakness appreciated. PSYCH: Normal mood, normal affect. Judgment and insight within normal limits. SKIN: No significant ecchymosis, rash, ulcerations or signs of pruritus noted. MUSCULOSKELETAL EXAM: No significant joint swelling noted. Results Laboratory Results: 06/10/17 10:45 06/10/17 05:00 05/31/17 06/01/17 06/01/17 08:30 05:29 05:29 Creatine Kinase 166 H CK-MB (CK-2) Troponin I 0.373 NT-Pro-B Natriuret Pep 2150 H 06/05/17 06/08/17 06/09/17 12:45 14:35 00:41 Creatine Kinase CK-MB (CK-2) 2.96 Troponin I 0.026 0.053 NT-Pro-B Natriuret Pep 1090 H 06/09/17 06/09/17 05:35 05:35 Creatine Kinase CK-MB (CK-2) Troponin I 0.064 NT-Pro-B Natriuret Pep 1160 H EKG Comments: It showed sinus rhythm. No sustained tachycardia or bradycardia arrhythmias noted. Impressions: Chest CT 05/31/17 00:00 IMPRESSION: NORMAL CT OF THE CHEST WITH IV CONTRAST. Facial Bones CT 05/31/17 00:00 IMPRESSION: Mild sinus disease. Chest X-Ray 06/01/17 08:38 IMPRESSION: NO SIGNIFICANT RADIOGRAPHIC FINDING IN THE CHEST. Guidance Fluoroscopy 06/04/17 00:00 IMPRESSION: SUCCESSFUL PLACEMENT OF A 5 FR DUAL LUMEN 32 CM PICC IN THE RIGHT BASILIC VEIN. Interventional Vascular Procedure 06/04/17 00:00 IMPRESSION: SUCCESSFUL PLACEMENT OF A 5 FR DUAL LUMEN 32 CM PICC IN THE RIGHT BASILIC VEIN. PICC Line Insertion 06/04/17 00:00 IMPRESSION: SUCCESSFUL PLACEMENT OF A 5 FR DUAL LUMEN 32 CM PICC IN THE RIGHT BASILIC VEIN. Assessment & Plan - Diagnosis (1) Elevated troponin Is this a current diagnosis for this admission?: Yes (2) Chest pain Qualifiers: Chest pain type: unspecified Qualified Code(s): R07.9 - Chest pain, unspecified Is this a current diagnosis for this admission?: Yes (3) COPD exacerbation Is this a current diagnosis for this admission?: Yes (4) Daytime hypersomnolence Is this a current diagnosis for this admission?: Yes (5) Tobacco abuse Is this a current diagnosis for this admission?: Yes - Notes Notes: Patient continues with intermittent chest pain. Patient is on good medical regimen. This is in spite on maximal medical therapy. Patient on the list of transfer now to [facility]. Continue with other on current management plans. Patient has been encouraged to quit smoking. Patient currently on double dose proton pump inhibitor. Patient advised to keep her follow-up appointment with me for evaluation of sleep apnea and also for further evaluation of cardiac status. - Time Time with patient: 15-25 minutes - CODE STATUS was discussed, patient remains full code. Surrogate decision-maker patient spouse. Multiple medical problems were addressed. More than 50% of the time spent coordinating care, discussing management plans with involved caregivers. Management plans discussed with involved personnels. Medical decision making was of moderate to high complexity , patient's has multiple comorbidities. Medications reviewed and adjusted accordingly: Yes
== END 2017-06-12 06:50 | disposition short-term general hospital (02) | DRG 189 ==
LOC: ER 05:39 → EH 08:28 → UNDOADMIN 08:46 → EH 08:46 → 3W 09:57
PROVIDERS: ADMIT Hospitalist; ATTEND Hospitalist
PROC: 5A09357 Assistance with Respiratory Ventilation, Less than 24 Consecutive Hours, Continuous Positive Airway Pressure (ICD-10-PCS; principal; 2017-05-31)
PROC: 02HV33Z Insertion of Infusion Device into Superior Vena Cava, Percutaneous Approach (ICD-10-PCS; 2017-06-04)
PROC: B5181ZA Fluoroscopy of Superior Vena Cava using Low Osmolar Contrast, Guidance (ICD-10-PCS; 2017-06-04)
PROC: B548ZZA Ultrasonography of Superior Vena Cava, Guidance (ICD-10-PCS; 2017-06-04)
DX: J96.01 Acute respiratory failure with hypoxia (principal); I50.31 Acute diastolic (congestive) heart failure; I21.4 Non-ST elevation (NSTEMI) myocardial infarction; J44.1 Chronic obstructive pulmonary disease with (acute) exacerbation; J96.02 Acute respiratory failure with hypercapnia; R07.1 Chest pain on breathing; I25.9 Chronic ischemic heart disease, unspecified; D50.9 Iron deficiency anemia, unspecified; R63.4 Abnormal weight loss; J32.1 Chronic frontal sinusitis; I10 Essential (primary) hypertension; K21.9 Gastro-esophageal reflux disease without esophagitis; M19.90 Unspecified osteoarthritis, unspecified site; M79.7 Fibromyalgia; F32.9 Major depressive disorder, single episode, unspecified; F41.1 Generalized anxiety disorder; Z79.899 Other long term (current) drug therapy; Z88.6 Allergy status to analgesic agent; Z87.891 Personal history of nicotine dependence; Z88.8 Allergy status to other drugs, medicaments and biological substances; Z88.2 Allergy status to sulfonamides
CPT/HCPCS: 36415; 36569; 36600; 70486; 71010; 71020; 71260; 76937; 77001; 78452; 80048; 80053; 80061; 80202; 82550; 82553; 82565; 82607; 82728; 82746; 82803; 83036; 83540; 83550; 83605; 83735; 83880; 84466; 84484; 84703; 85025; 85027; 85045; 85379; 87015; 87040; 87070; 87077; 87116; 87186; 87205; 87206; 93005; 93010; 93017; 93306; 94640; 94660; 94762; 96365; 96368; 96375; 99291; A9500; J0280; J0456; J0696; J1642; J1644; J1940; J1956; J2060; J2405; J2785; J2920; J2930; J3370; J3490; J7060; J7512; J7620; Q9969

== ENCOUNTER 2017-07-06 17:54 | Emergency (ER) | payer SELFPAY ==
--- NOTE | 2017-07-06 19:19 | ER Document Report ---
ED Medical Screen (RME) - General Chief Complaint: Chest Pain Stated Complaint: CHEST PAIN Time Seen by Provider: 07/06/17 19:08 Notes: 47-year-old female here with complaints of continued intermittent chest pain ongoing for the past few months but worsened earlier today while she was sitting down. The pain is worse with exertion but not with breathing. The pain radiates to her jaw and her left shoulder. The also states he has noticed slurred speech and memory deficits over the past few weeks and the patient reports that she has had worsening left upper and lower extremity numbness. She denies prior history of stroke. [facility] cardiac catheterization but they did not perform the catheterization due to low hemoglobin. EXAM Clear to auscultation bilaterally Tachycardic low 100s Regular rate and rhythm Left upper extremity sensory deficit TRAVEL OUTSIDE OF THE [place] IN LAST 30 DAYS: No - Related Data Allergies/Adverse Reactions: acetaminophen [From Percocet] Allergy (Verified 07/06/17 17:58) aspirin [Aspirin] Allergy (Verified 07/06/17 17:58) citalopram hydrobromide [From Celexa] Allergy (Verified 07/06/17 17:58) morphine [Morphine] Allergy (Verified 07/06/17 17:58) NSAIDS (Non-Steroidal Anti-Inflamma [Nsaids] Allergy (Verified 07/06/17 17:58) oxycodone HCl [From Percocet] Allergy (Verified 07/06/17 17:58) pregabalin [From Lyrica] Allergy (Verified 07/06/17 17:58) Sulfa (Sulfonamide Antibiotics) Allergy (Verified 07/06/17 17:58) Past Medical History - Past Medical History Cardiac Medical History: Reports: Hx Hypertension Pulmonary Medical History: Reports: Hx Asthma, Hx Bronchitis, Hx COPD, Hx Pneumonia, Hx Respiratory Failure Neurological Medical History: Reports: Hx Migraine, Hx Seizures - hx of Renal/ Medical History: Denies: Hx Peritoneal Dialysis GI Medical History: Reports: Hx Gastroesophageal Reflux Disease Musculoskeltal Medical History: Reports Hx Arthritis, Reports Hx Fibromyalgia Skin Medical History: Denies Hx Eczema, Denies Hx Psoriasis Psychiatric Medical History: Reports: Hx Depression Infectious Medical History: Denies: Hx C-Diff, Hx HIV, Hx MRSA, Hx VRE Past Surgical History: Reports: Hx Orthopedic Surgery - R knee, Hx Tubal Ligation - Immunizations Hx Diphtheria, Pertussis, Tetanus Vaccination: No History of Influenza Vaccine for 04/2017 - 09/2017 Season: No Physical Exam - Vital signs Vitals: Temp Pulse Resp BP Pulse Ox 98.6 F 85 18 128/70 H 100 07/06/17 18:13 07/06/17 18:13 07/06/17 18:13 07/06/17 18:13 07/06/17 18:13 Course - Vital Signs Vital signs: Temp Pulse Resp BP Pulse Ox 98.6 F 85 18 128/70 H 100 07/06/17 18:13 07/06/17 18:13 07/06/17 18:13 07/06/17 18:13 07/06/17 18:13
--- NOTE | 2017-07-06 20:04 | RADIOLOGY REPORT (SQ) ---
EXAM DESCRIPTION: CT HEAD WITHOUT COMPLETED DATE/TIME: 07/06/2017 7:56 pm REASON FOR STUDY: slurred speech, memory deficit; eval bleed stroke COMPARISON: None. TECHNIQUE: Axial images acquired through the brain without intravenous contrast. Images reviewed wi th bone, brain and subdural windows. Images stored on PACS. All CT scanners at this facility use dose modulation, iterative reconstruction, and/or weight based d osing when appropriate to reduce radiation dose to as low as reasonably achievable (ALARA). [facility]: Dose Right [facility]: CareDose [facility]: Dose Right [facility]: Teradose 4D [facility]: DreamNotes RADIATION DOSE: mGy. LIMITATIONS: None. FINDINGS: VENTRICLES: Normal size and contour. CEREBRUM: No masses. No hemorrhage. No midline shift. No evidence for acute infarction. Normal gra y/white matter differentiation. No areas of low density in the white matter. CEREBELLUM: No masses. No hemorrhage. No alteration of density. No evidence for acute infarction. EXTRAAXIAL SPACES: No fluid collections. No masses. ORBITS AND GLOBE: No intra- or extraconal masses. Normal contour of globe without masses. CALVARIUM: No fracture. PARANASAL SINUSES: Air-fluid level right maxillary sinus. SOFT TISSUES: No mass or hematoma. OTHER: No other significant finding. IMPRESSION: NORMAL BRAIN CT WITHOUT CONTRAST. EVIDENCE OF ACUTE STROKE: NO. COMMENT: Quality ID # [id number]: Final reports with documentation of one or more dose reduction techniques (e.g., Automated exposure control, adjustment of the mA and/or kV according to patient size, use of iterative reconstruction technique) TECHNICAL DOCUMENTATION: JOB ID: [id number] [employer]- All Rights Reserved
--- NOTE | 2017-07-06 20:11 | RADIOLOGY REPORT (SQ) ---
EXAM DESCRIPTION: CHEST PA/LAT COMPLETED DATE/TIME: 07/06/2017 8:02 pm REASON FOR STUDY: CP COMPARISON: 06/01/2017 EXAM PARAMETERS: NUMBER OF VIEWS: two views TECHNIQUE: Digital Frontal and Lateral radiographic views of the chest acquired. RADIATION DOSE: NA LIMITATIONS: none FINDINGS: LUNGS AND PLEURA: No opacities, masses or pneumothorax. No pleural effusion. MEDIASTINUM AND HILAR STRUCTURES: No masses or contour abnormalities. HEART AND VASCULAR STRUCTURES: Heart normal size. No evidence for failure. BONES: No acute findings. HARDWARE: None in the chest. OTHER: No other significant finding. IMPRESSION: NO SIGNIFICANT RADIOGRAPHIC FINDING IN THE CHEST. TECHNICAL DOCUMENTATION: JOB ID: [id number] [employer]- All Rights Reserved
[2017-07-06 20:38] LABS: ABSOLUTE BASOPHILS # (AUTO) 0.1 10^3/uL (0.0-0.2); ABSOLUTE EOSINOPHILS # (AUTO) 0.2 10^3/uL (0.0-0.6); ABSOLUTE MONOCYTES (AUTO) 0.6 10^3/uL (0.1-1.4); ABSOLUTE NEUT (AUTO) 4.2 10^3/uL (1.7-8.2); BASOPHILS % (AUTO) 1.2 % (0-2); EOSINOPHILS % (AUTO) 3.3 % (0-6); HEMATOCRIT 28.8 % (36.0-47.0); HGB HCT DIFFERENCE -1.8; LYMPHOCYTES % (AUTO) 27.8 % (13-45); MEAN CORPUSCULAR HEMOGLOBIN 19.4 pg (27.0-33.4); MEAN CORPUSCULAR HGB CONC 31.1 g/dL (32.0-36.0); MEAN CORPUSCULAR VOLUME 63 fl (80-97); MONOCYTES % (AUTO) 9.1 % (3-13); RED BLOOD COUNT 4.62 10^6/uL (3.72-5.28); RED CELL DISTRIBUTION WIDTH 21.2 % (11.5-14.0); SEGMENTED NEUTROPHILS % (AUTO) 58.6 % (42-78); WHITE BLOOD COUNT 7.1 10^3/uL (4.0-10.5)
[2017-07-06 20:46] LABS: ANION GAP 17 (5-19); BLOOD UREA NITROGEN 23 mg/dL (7-20); CALCIUM 9.7 mg/dL (8.4-10.2); CARBON DIOXIDE 18 mmol/L (22-30); CHLORIDE 107 mmol/L (98-107); CREATININE RESULT 0.87 mg/dL (0.52-1.25); GLUCOSE 81 mg/dL (75-110); POTASSIUM 3.9 mmol/L (3.6-5.0)
[2017-07-06 21:13] LABS: ANISOCYTOSIS 3+; MICROCYTOSIS 3+
[2017-07-06 21:15] LABS: OVALOCYTES 1+; POIKILOCYTOSIS 1+; TARGET CELLS SLIGHT
--- NOTE | 2017-07-06 21:50 | EKG REPORT ---
SEVERITY:- ABNORMAL ECG - SINUS RHYTHM LOW VOLTAGE IN FRONTAL LEADS NONSPECIFIC T ABNORMALITIES, LATERAL LEADS : Confirmed by: Kurtis Wynn 06-Jul-2017 21:49:02
--- NOTE | 2017-07-06 23:15 | ER Document Report ---
ED General - General Chief Complaint: Chest Pain Stated Complaint: CHEST PAIN Time Seen by Provider: 07/06/17 19:08 TRAVEL OUTSIDE OF THE [place] IN LAST 30 DAYS: No - HPI Patient complains to provider of: Chest pain Notes: Patient presents today for evaluation of chest pain. Patient states she has chronic chest pain patient states on Sunday this week she was scheduled to have a cardiac catheterization performed at [facility] because of her chronic chest pain however this was halted due to her hemoglobin being 7.6. Patient states she was given iron and discharged home. Patient states this morning chest pain is worse therefore came into the ER for further evaluation. states over the last few days to as well patient is been having slurred speech and some left arm weakness. Upon my evaluation patient is alert oriented resting comfortably in no signs of any obvious distress. Patient states that she still is having chest pain however this is her normal level patient states that there is no exacerbation of her chest pain at this time. Patient denies any recent travel denies any fevers chills nausea vomiting diarrhea. Patient denies any drug abuse denies any alcohol abuse - Related Data Allergies/Adverse Reactions: hydrocortisone [From Hydrocortone] Allergy (Severe, Verified 07/06/17 19:23) hydromorphone [From Dilaudid] Allergy (Severe, Verified 07/06/17 19:23) Hypotension tizanidine [From Zanaflex] Allergy (Severe, Verified 07/06/17 19:23) Swelling of hands and/or feet ketorolac [From Toradol] Allergy (Intermediate, Verified 07/06/17 19:23) phenylephrine Allergy (Intermediate, Verified 07/06/17 19:23) aspirin [Aspirin] Allergy (Verified 07/06/17 17:58) citalopram hydrobromide [From Celexa] Allergy (Verified 07/06/17 17:58) morphine [Morphine] Allergy (Verified 07/06/17 17:58) NSAIDS (Non-Steroidal Anti-Inflamma [Nsaids] Allergy (Verified 07/06/17 17:58) oxycodone HCl [From Percocet] Allergy (Verified 07/06/17 17:58) pregabalin [From Lyrica] Allergy (Verified 07/06/17 17:58) Sulfa (Sulfonamide Antibiotics) Allergy (Verified 07/06/17 17:58) Past Medical History - Social History Smoking Status: Former Smoker Chew tobacco use (# tins/day): No Frequency of alcohol use: None Drug Abuse: None Family History: CAD, CVA, Hypertension, Malignancy Patient has suicidal ideation: No Patient has homicidal ideation: No - Past Medical History Cardiac Medical History: Reports: Hx Hypertension Pulmonary Medical History: Reports: Hx Asthma, Hx Bronchitis, Hx COPD, Hx Pneumonia, Hx Respiratory Failure Neurological Medical History: Reports: Hx Migraine, Hx Seizures - hx of Renal/ Medical History: Denies: Hx Peritoneal Dialysis GI Medical History: Reports: Hx Gastroesophageal Reflux Disease Musculoskeltal Medical History: Reports Hx Arthritis, Reports Hx Fibromyalgia Skin Medical History: Denies Hx Eczema, Denies Hx Psoriasis Psychiatric Medical History: Reports: Hx Depression Infectious Medical History: Denies: Hx C-Diff, Hx HIV, Hx MRSA, Hx VRE Past Surgical History: Reports: Hx Orthopedic Surgery - R knee, Hx Tubal Ligation - Immunizations Hx Diphtheria, Pertussis, Tetanus Vaccination: No Review of Systems - Review of Systems Constitutional: No symptoms reported EENT: No symptoms reported Cardiovascular: Chest pain Respiratory: No symptoms reported Gastrointestinal: No symptoms reported Genitourinary: No symptoms reported Female Genitourinary: No symptoms reported Musculoskeletal: No symptoms reported Skin: No symptoms reported Hematologic/Lymphatic: No symptoms reported Neurological/Psychological: No symptoms reported Physical Exam - Vital signs Vitals: Temp Pulse Resp BP Pulse Ox 98.6 F 85 18 128/70 H 100 07/06/17 18:13 07/06/17 18:13 07/06/17 18:13 07/06/17 18:13 07/06/17 18:13 Interpretation: Normal - General General appearance: Appears well, Alert - HEENT Head: Normocephalic, Atraumatic Eyes: Normal Pupils: PERRL - Respiratory Respiratory status: No respiratory distress Chest status: Nontender Breath sounds: Normal Chest palpation: Normal - Cardiovascular Rhythm: Regular Heart sounds: Normal auscultation Murmur: No - Abdominal Inspection: Normal Distension: No distension Bowel sounds: Normal Tenderness: Nontender Organomegaly: No organomegaly - Back Back: Normal, Nontender - Extremities General upper extremity: Normal inspection, Nontender, Normal color, Normal ROM , Normal temperature General lower extremity: Normal inspection, Nontender, Normal color, Normal ROM , Normal temperature, Normal weight bearing. No: Giuseppe's sign - Neurological Neuro grossly intact: Yes Cognition: Normal Orientation: AAOx4 [place] Coma Scale Eye Opening: Spontaneous Willis Coma Scale Verbal: Oriented [place] Coma Scale Motor: Obeys Commands Willis Coma Scale Total: 15 Speech: Normal Cranial nerves: Normal Motor strength normal: LUE, RUE, LLE, RLE Sensory: Normal - Psychological Associated symptoms: Normal affect, Normal mood - Skin Skin Temperature: Warm Skin Moisture: Dry Skin Color: Normal Course - Re-evaluation Re-evalutation: 07/06/17 23:14 At this time lab work shows hemoglobin of 9 bicarb of 18. Patient looks to be no obvious distress EKG does not show any concerning pathology. Chest x-ray is also negative will add on a d-dimer for further evaluation of the patient's chest pain. Patient states her investigations chief Dr. Cadet in the catheterization or any cardiac intervention this was Dr. Cedeno at [facility]. Will attempt to contact [facility] for further evaluation. 07/06/17 23:[address] Pierson [facility] was able to review the patient's information from her previous visits. States that his recommendation would be patient has negative troponins more likely to be discharged on follow-up as outpatient for her ongoing chronic chest pain. I agree with this assessment. Will repeat a second troponin 07/07/17 01:30 Troponin returned negative. Patient tolerating p.o. Patient otherwise states feeling better will discharge home patient encouraged follow-up with her investigations chief for further evaluation. - Vital Signs Vital signs: Temp Pulse Resp BP Pulse Ox 98.6 F 85 18 128/70 H 100 07/06/17 18:13 07/06/17 18:13 07/06/17 22:10 07/06/17 18:13 07/06/17 22:10 - Laboratory Result Diagrams: 07/06/17 20:15 07/07/17 00:26 Laboratory results interpreted by me: 07/06/17 07/06/17 07/07/17 20:15 20:15 00:26 Hgb 9.0 L Hct 28.8 L MCV 63 L MCH 19.4 L MCHC 31.1 L RDW 21.2 H Chloride 108 H Carbon Dioxide 18 L 19 L BUN 23 H 23 H Discharge - Discharge Clinical Impression: Chest pain of uncertain etiology Disposition: HOME, SELF-CARE Instructions: Chest Pain of Unclear Cause ([facility]) Additional Instructions: At this time your EKG and laboratory studies not show any significant findings. There is no signs of any cardiac damage. I did discuss with physicians at [facility] recommend that she follow-up with them on Sunday for continual outpatient investigation. Your urinalysis does show some slight dehydration please make sure that you are drinking plenty water.
[2017-07-06 23:18] LABS: APPEARANCE,URINE SLIGHTLY-CLOUDY; BILIRUBIN,URINE NEGATIVE (NEGATIVE); GLUCOSE, URINE NEGATIVE (NEGATIVE); KETONES,URINE NEGATIVE (NEGATIVE); LEUKOCYTE ESTERASE,URINE NEGATIVE (NEGATIVE); NITRITE,URINE NEGATIVE (NEGATIVE); PROTEIN,URINE NEGATIVE (NEGATIVE); URINE SPECIFIC GRAVITY 1.031; UROBILINOGEN,URINE NEGATIVE mg/dL (<2.0)
[2017-07-07 00:52] LABS: ANION GAP 12 (5-19); BLOOD UREA NITROGEN 23 mg/dL (7-20); CALCIUM 9.5 mg/dL (8.4-10.2); CARBON DIOXIDE 19 mmol/L (22-30); CHLORIDE 108 mmol/L (98-107); CREATININE RESULT 0.72 mg/dL (0.52-1.25); GLUCOSE 82 mg/dL (75-110); POTASSIUM 4.1 mmol/L (3.6-5.0)
[2017-07-07 01:32] VITALS: BP 117/70
== END 2017-07-07 01:29 | disposition home or self-care (01) ==
LOC: ER 17:54
DX: R07.9 Chest pain, unspecified (principal); Z87.891 Personal history of nicotine dependence
CPT/HCPCS: 36415; 70450; 71020; 80048; 81001; 84484; 85025; 85379; 93005; 93010; 99285

== ENCOUNTER 2017-07-31 08:00 | Outpatient (CLI) | payer SELFPAY ==
[~2017-07-31 08:00] MED LIST: IRON DEXTRAN COMPLEX 25 MG in SYRINGE, DISPOSABLE, 1 EACH IV PRN; IRON DEXTRAN COMPLEX 975 MG in NORMAL SALINE 1000 ML 1,000 ML IV PRN; IRON DEXTRAN COMPLEX 975 MG in NORMAL SALINE 500 ML IV PRN
[2017-07-31] MEDS ORDERED: ACETAMINOPHEN 325 MG TABLET PO PRN (08:32)
[2017-07-31] MEDS ORDERED: DIPHENHYDRAMINE HCL 25 MG CAPSULE PO PRN (08:32)
[2017-07-31] MEDS: NORMAL SALINE 250 ML IV PRN ×2 (08:59→09:09)
[2017-07-31] MEDS ORDERED: DEXAMETHASONE SOD PHOSPHATE INJ 4 MG/1 ML VIAL ONE (09:23)
[2017-07-31 09:47] VITALS: BP 138/77
== END 2017-07-31 14:21 | disposition home or self-care (01) ==
LOC: II 08:00 → 5TH 08:03 → II 14:21
PROVIDERS: ATTEND Internal Medicine Hematology & Oncology
DX: D50.9 Iron deficiency anemia, unspecified (principal)
CPT/HCPCS: 96367; 96375; J1100; J1750; J7030; J3490; J7040

== ENCOUNTER → 2018-09-27 | Outpatient (CLI) | payer MEDICAID ==
[2018-09-27 13:18] LABS: ABSOLUTE EOSINOPHILS # (AUTO) 0.1 10^3/uL (0.0-0.6); ABSOLUTE LYMPHOCYTES (AUTO) 1.1 10^3/uL (0.5-4.7); ABSOLUTE MONOCYTES (AUTO) 0.3 10^3/uL (0.1-1.4); ABSOLUTE NEUT (AUTO) 2.8 10^3/uL (1.7-8.2); BASOPHILS % (AUTO) 0.7 % (0-2); EOSINOPHILS % (AUTO) 2.1 % (0-6); HEMATOCRIT 36.1 % (36.0-47.0); HEMOGLOBIN 11.7 g/dL (12.0-15.5); LYMPHOCYTES % (AUTO) 24.8 % (13-45); MEAN CORPUSCULAR HEMOGLOBIN 24.9 pg (27.0-33.4); MEAN CORPUSCULAR HGB CONC 32.4 g/dL (32.0-36.0); MEAN CORPUSCULAR VOLUME 77 fl (80-97); MONOCYTES % (AUTO) 7.4 % (3-13); PLATELET COUNT 275 10^3/uL (150-450); TOTAL CELLS COUNTED % (AUTO) 100 %; WHITE BLOOD COUNT 4.3 10^3/uL (4.0-10.5)
[2018-09-27 13:38] LABS: C-REACTIVE PROTEIN 7.3 mg/L (<10.0)
[2018-10-01 08:22] LABS: CYCLIC CITRUL PEPTIDE IGG/A AB 2 units (0-19)
== END ==
LOC: OD 12:00
PROVIDERS: ATTEND Family Medicine
DX: M25.50 Pain in unspecified joint (principal)
CPT/HCPCS: 36415; 84550; 85025; 86038; 86140; 86200; 86430

== ENCOUNTER → 2018-10-17 | Outpatient (CLI) | payer MEDICAID | LOC: OD 13:52 | PROVIDERS: ATTEND Specialist | DX: N76.1 Subacute and chronic vaginitis (principal) | CPT/HCPCS: 36415; 86592 ==

== ENCOUNTER → 2018-10-30 | Outpatient (CLI) | payer MEDICAID ==
--- NOTE | 2018-10-30 13:06 | WOMENS IMAGING REPORT ---
EXAM DESCRIPTION: 3D SCREENING MAMMO BILAT COMPLETED DATE/TIME: 10/30/2018 12:00 pm REASON FOR STUDY: Z12.31 ENCOUNTER FOR SCREENING MAMMOGRAM FOR MALIGNANT NEOPLASM OF BREAST Z12.31 ENCNTR SCREEN MAMMOGRAM FOR MALIGNANT NEOPLASM OF [place] COMPARISON: None. TECHNIQUE: Standard craniocaudal and mediolateral oblique views of each breast recorded using digita l acquisition and breast tomosynthesis. LIMITATIONS: None. FINDINGS: No masses, calcifications or architectural distortion. No areas of suspicion. Read with the assistance of CAD. [facility] - R2 Cenova Version 1.3 .[facility] - R2 Cenova Version 2.1 .[facility] - R2 Cenova Version 2.4 .[facility] - R2 Cenova Version 2.4 .[facility] - R2 J[employer] Box Servicer Version 9.2 IMPRESSION: NORMAL MAMMOGRAM. BIRADS 1. BREAST DENSITY: a. The breasts are almost entirely fatty. BIRAD: 1 NEGATIVE RECOMMENDATION: ROUTINE SCREENING COMMENT: The patient has been notified of the results by letter per MQSA requirements. Additional no tification policies are in place for contacting patient with suspicious or incomplete findings. Quality ID #225: The [employer] recommends an annual screening mammogram for women aged 40 years or over. This facility utilizes a reminder system to ensure that all patients receive reminder letters, and/or direct phone calls for appointments. This includes reminders for routine scr eening mammograms, diagnostic mammograms, or other Breast Imaging Interventions when appropriate. Th is patient will be placed in the appropriate reminder system. The [employer] (ACR) has developed recommendations for screening MRI of the breast s in certain patient populations, to be used in conjunction with mammography. Breast MRI surveillanc e may be appropriate for women with more than 20% lifetime risk of developing breast cancer as deter mined by genetic testing, significant family history of the disease, or history of mantle radiation f or Hodgkins Disease. ACR Practice Guidelines 2008. DBT Technology DBT is a type of tomographic mammography. With conventional mammography, overlapping breast tissue ma y make lesions difficult to detect, even with good compression. DBT uses an x-ray tube that rotates a round the breast, taking images at different angles. These images are then combined to create thin sl ices of the breast that the radiologist can view as a 3D reconstruction. The YOOSE unit can perform full-field digital mammograms (2D imaging); or DBT (3D imaging); or both, in a combination mode that quickly performs both the mammogram and the tomosynthesis scan while the breast is still compressed. PQRS 6045F: Fluoroscopic imaging is not utilized for breast tomosynthesis. TECHNICAL DOCUMENTATION: FINDING NUMBER: (1) ASSESSMENT: (1) JOB ID: [id number] [employer]- All Rights Reserved Reading location - IP/workstation name: [email or web address] [email or web address]
== END ==
LOC: WI 11:31
PROVIDERS: ATTEND Nurse Practitioner
DX: Z12.31 Encounter for screening mammogram for malignant neoplasm of breast (principal)
CPT/HCPCS: 77063; 77067

== ENCOUNTER 2018-12-18 13:51 | Outpatient (CLI) | payer MEDICAID ==
[~2018-12-18 13:51] MED LIST changes: +FERRIC CARBOXYMALTOSE 750 MG in NORMAL SALINE 250 ML IV PRN; -IRON DEXTRAN COMPLEX 25 MG in SYRINGE, DISPOSABLE, 1 EACH IV PRN; -IRON DEXTRAN COMPLEX 975 MG in NORMAL SALINE 1000 ML 1,000 ML IV PRN; -IRON DEXTRAN COMPLEX 975 MG in NORMAL SALINE 500 ML IV PRN; +NORMAL SALINE 250 ML IV PRN
[2018-12-18] MEDS ORDERED: DEXAMETHASONE 10 MG in NS 50 ML IV PRN (14:19)
[2018-12-18] MEDS ORDERED: DIPHENHYDRAMINE HCL 25 MG in NORMAL SALINE 50 ML IV PRN (14:21)
[2018-12-18 14:34] VITALS: BP 122/73
== END 2018-12-18 16:49 | disposition home or self-care (01) ==
LOC: II 13:51 → 5TH 14:17 → II 16:49
PROVIDERS: ATTEND Internal Medicine Medical Oncology
PROC: 3E033GC Introduction of Other Therapeutic Substance into Peripheral Vein, Percutaneous Approach (ICD-10-PCS; principal; 2018-12-18)
DX: D50.0 Iron deficiency anemia secondary to blood loss (chronic) (principal)
CPT/HCPCS: 96365; J1200; J7050; J1100; J1439; 96367

== ENCOUNTER 2018-12-25 13:51 | Outpatient (CLI) | payer MEDICAID ==
[~2018-12-25 13:51] MED LIST changes: +DEXAMETHASONE SOD PHOSPHATE 10 MG in NORMAL SALINE 50 ML IV PRN; +DIPHENHYDRAMINE HCL 25 MG in NORMAL SALINE 50 ML IV PRN
[2018-12-25 14:25] VITALS: BP 146/84
== END 2018-12-25 16:45 | disposition home or self-care (01) ==
LOC: II 13:51 → 5TH 16:44 → II 16:45
PROVIDERS: ATTEND Internal Medicine Medical Oncology
DX: D50.0 Iron deficiency anemia secondary to blood loss (chronic) (principal)
CPT/HCPCS: 96365; 96367; 96360; J1200; J7050; J1100; J1439

== ENCOUNTER → 2019-05-08 | Outpatient (CLI) | payer MEDICAID ==
--- NOTE | 2019-05-08 19:24 | RADIOLOGY REPORT (SQ) ---
EXAM DESCRIPTION: U/S EXTREMITY NONVASCULAR LTD COMPLETED DATE/TIME: 05/08/2019 6:10 pm REASON FOR STUDY: R22.9 LOCALIZED SWELLING, MASS AND LUMP, UNSPECIFIED R22.9 LOCALIZED SWELLING, MA SS AND LUMP, UNSPECIFIED COMPARISON: None. TECHNIQUE: Dynamic and static grayscale images acquired of the localized site of clinical concern an d recorded on PACS. Additional selected color Doppler and spectral images recorded. SITE OF CONCERN: Right gluteal area. LIMITATIONS: None. FINDINGS: Sonographic imaging of the area of concern shows a 1 cm fluid collection that may be septa yonatan. IMPRESSION: 1 cm fluid collection in the right gluteal region. Could represent abscess or perhaps f at necrosis. TECHNICAL DOCUMENTATION: JOB ID: [id number] [employer]- All Rights Reserved Reading location - IP/workstation name: [email or web address]
== END ==
LOC: RAD 17:06
PROVIDERS: ATTEND Nurse Practitioner
DX: R22.0 Localized swelling, mass and lump, head (principal)
CPT/HCPCS: 76882

== ENCOUNTER 2019-07-15 12:03 | Day surgery (SDC) | payer MEDICAID ==
[2019-07-08 09:31] LABS: ABSOLUTE EOSINOPHILS # (AUTO) 0.1 10^3/uL (0.0-0.6); ABSOLUTE LYMPHOCYTES (AUTO) 2.2 10^3/uL (0.5-4.7); ABSOLUTE MONOCYTES (AUTO) 0.4 10^3/uL (0.1-1.4); ABSOLUTE NEUT (AUTO) 2.6 10^3/uL (1.7-8.2); BASOPHILS % (AUTO) 0.9 % (0-2); EOSINOPHILS % (AUTO) 2.6 % (0-6); HEMATOCRIT 40.9 % (36.0-47.0); HEMOGLOBIN 13.9 g/dL (12.0-15.5); LYMPHOCYTES % (AUTO) 40.6 % (13-45); MEAN CORPUSCULAR HEMOGLOBIN 29.9 pg (27.0-33.4); MEAN CORPUSCULAR HGB CONC 34.1 g/dL (32.0-36.0); MEAN CORPUSCULAR VOLUME 88 fl (80-97); MONOCYTES % (AUTO) 7.3 % (3-13); PLATELET COUNT 232 10^3/uL (150-450); RED BLOOD COUNT 4.67 10^6/uL (3.72-5.28); RED CELL DISTRIBUTION WIDTH 14.7 % (11.5-14.0); SEGMENTED NEUTROPHILS % (AUTO) 48.6 % (42-78); TOTAL CELLS COUNTED % (AUTO) 100 %; WHITE BLOOD COUNT 5.3 10^3/uL (4.0-10.5)
--- NOTE | 2019-07-08 09:49 | EKG REPORT ---
SEVERITY:- NORMAL ECG - SINUS RHYTHM : Confirmed by: Dick Locke MD 08-Jul-2019 09:48:13
[2019-07-08 10:01] LABS: ANION GAP 6 (5-19); BLOOD UREA NITROGEN 19 mg/dL (7-20); CALCIUM 9.1 mg/dL (8.4-10.2); CARBON DIOXIDE 30 mmol/L (22-30); CHLORIDE 104 mmol/L (98-107); GLUCOSE 147 mg/dL (75-110); POTASSIUM 3.6 mmol/L (3.6-5.0)
--- NOTE | 2019-07-08 10:22 | RADIOLOGY REPORT (SQ) ---
EXAM DESCRIPTION: CHEST PA/LATERAL COMPLETED DATE/TIME: 07/08/2019 10:11 am REASON FOR STUDY: PRE-OP COMPARISON: 07/06/2017 EXAM PARAMETERS: NUMBER OF VIEWS: two views TECHNIQUE: Digital Frontal and Lateral radiographic views of the chest acquired. RADIATION DOSE: NA LIMITATIONS: none FINDINGS: LUNGS AND PLEURA: No opacities, masses or pneumothorax. No pleural effusion. MEDIASTINUM AND HILAR STRUCTURES: No masses or contour abnormalities. HEART AND VASCULAR STRUCTURES: Heart normal size. No evidence for failure. BONES: No acute findings. HARDWARE: None in the chest. OTHER: No other significant finding. IMPRESSION: NO SIGNIFICANT RADIOGRAPHIC FINDING IN THE CHEST. TECHNICAL DOCUMENTATION: JOB ID: [id number] [employer]- All Rights Reserved Reading location - IP/workstation name: [email or web address]
[~2019-07-15 12:03] MED LIST changes: +CEFAZOLIN SODIUM 2 GM in DEXTROSE 5%-WATER 100 ML IV PRN; -DEXAMETHASONE SOD PHOSPHATE 10 MG in NORMAL SALINE 50 ML IV PRN; -DIPHENHYDRAMINE HCL 25 MG in NORMAL SALINE 50 ML IV PRN; -FERRIC CARBOXYMALTOSE 750 MG in NORMAL SALINE 250 ML IV PRN; +LACTATED RINGERS 1000 ML IV PRN; +LIDOCAINE 0.5% INJ-PF (5 MG/ML) 50 ML SDV SUBCUT PRN; -NORMAL SALINE 250 ML IV PRN
[2019-07-15] MEDS ORDERED: FENTANYL CITRATE INJ/PF 100 MCG/2 ML AMPUL ONE (13:10)
[2019-07-15] MEDS ORDERED: MIDAZOLAM 2 MG/2 ML INJ ONE ×2 (13:11)
[2019-07-15] MEDS ORDERED: PROPOFOL INJ 200 MG/20 ML VIAL IV ONE ×2 (13:11→13:12)
[2019-07-15] MEDS ORDERED: LIDOCAINE 1% INJ-PF (10 MG/ML) 30 ML SDV ONE (13:19)
[2019-07-15] MEDS ORDERED: ALBUTEROL SULFATE 0.083% NEB 2.5 MG/3 ML AMPUL NEB ONE (13:34)
[2019-07-15] MEDS ORDERED: FENTANYL CITRATE INJ/PF 100 MCG/2 ML AMPUL IV PRN ×4 (14:04→14:21)
[2019-07-15] MEDS ORDERED: HYDROCODONE/ACETAMINOPHEN 5-325 MG TABLET PO PRN (14:21)
--- NOTE | 2019-07-15 14:21 | Discharge Summary ---
Discharge Summary (SDC) - Discharge Final Diagnosis: Right carpal tunnel syndrome Date of Surgery: 07/15/19 Discharge Date: 07/15/19 Condition: Good Treatment or Instructions: Schedule Follow Up w/ Dr. Justin Beard @ [facility] for Surgery to be seen in 10-14 days or as scheduled [place]: [place]: [place]: May remove dressing on postop day #3, keep incision covered and dry. Ice and elevate May begin finger range of motion attempting to make full fist. Stool softener of choice when on pain medication. USE OF [id number] IBUPROFEN: Ibuprofen (Advil, Nuprin, Medipren, Motrin IB) is a medication for fever and pain control. In addition, it has anti- inflammatory effects which may be beneficial, especially in the treatment of injuries. It's best to take ibuprofen with food. Persons with ulcer disease or allergy to aspirin should notify their physician of this before taking ibuprofen. Ibuprofen can be given every four to six hours, for a total of four doses daily. Age Pain or fever dose Antiinflammatory dose 6-8 yr 200 mg (1 tab) 200 mg (1 tab) 9-11 yr 200 mg (1 tab) 200-400 mg (1-2 tab) 11-14 yr 200-400 mg (1-2 tab) 400 mg (2 tab) 15-adult 400 mg (2 tab) 600 mg (3 tab) ORAL NARCOTIC MEDICATION: You have been given a prescription for pain control. This medication is a narcotic. It's best taken with food, as nausea can result if taken on an empty stomach. Don't operate machinery or drive within six hours of taking this medication. Do not combine this medicine with alcohol, or with any medication which can cause sedation (such as cold tablets or sleeping pills) unless you get permission from the physician. Narcotics tend to cause constipation. If possible, drink plenty of fluids and eat a diet high in fiber and fruits. Please be aware that prescription narcotics also have the potential for abuse. People become addicted to these medications because of the general sense of wellbeing that they induce. This feeling along with a significant reduction in tension, anxiety, and aggression provides a stimulating seductive quality to these drugs. Once your pain is under control, we encourage you to discard your unused narcotics. Prescriptions: Hydrocodone/Acetaminophen [[place] 5-325 Tablet] 1 each PO Q6 PRN #15 tablet PRN Reason: Referrals: AMIE PALMER NP [Primary Care Provider] - Discharge Diet: As Tolerated Respiratory Treatments at Home: Deep Breathing/Coughing, Incentive Spirometer Discharge Activity: No Lifting Over 10 Pounds, No Lifting/Push/Pulling Report the Following to Your Physician Immediately: Fever over 101 Degrees, Unusual Bleeding, Redness, Swelling, Warmth, Increased Soreness
--- NOTE | 2019-07-15 14:21 | Operative Report ---
Operative Report DATE OF SURGERY: 07/15/19 PREOPERATIVE DIAGNOSIS: Right carpal tunnel syndrome POSTOPERATIVE DIAGNOSIS: Same OPERATION: Right endoscopic carpal tunnel release SURGEON: TYREE TIMMONS COMPLICATIONS: None ESTIMATED BLOOD LOSS: Minimal PROCEDURE: Indication for above procedure: 49-year-old female with numbness and tingling of the median nerve distribution. Attempted conservative measures including bracing. Patient symptoms worse at night. Electrodiagnostic testing confirming moderate carpal tunnel syndrome at that point we discussed treatment options including operative versus nonoperative intervention after discussing risks and benefits decision was made to proceed with operative treatment. Procedure In Detail: Patient was seen and evaluated in the preoperative holding area. The RIGHT upper extremity was initialized and marked. Patient received Ancef IV for bacterial prophylaxis. Patient was taken back to the operative room where tr ansferred operative table. Patient was then placed under MAC anesthesia. Once adequately anesthetized, a nonsterile tourniquet was placed on the upper extremity. A surgical team debriefing was performed ensuring all instrumentation was available, the surgical procedure was discussed with possible concerns reviewed. Skin was prepped with alcohol and 10cc of 1% lidocaine without epinephrine was injected locally and w/in carpal canal. The upper extremity was prepped with chlorhexidine and alcohol and draped in a sterile fashion. A timeout was done identifying correct patient, procedure and extremity everyone in attendance agree with this and verbalized no concerns.The extremity was then exsanguinated the tourniquet was inflated to 250 mmHg. A transverse skin incision was made just proximal to the wrist flexion crease ulnar to the palmaris longus. Blunt dissection was performed down to the palmaris longus tendon which was retracted radially. Deep to the palmaris longus tendon was the volar carpal ligament this was incised identifying the median nerve deep. With the use of a Willits elevator any soft tissue/synovium was freed from the undersurface of the transverse carpal ligament. The hook of hamate was identified ulnarly. The [employer]Med cannulas were then introduced beginning with #1 progressing to a #3 gently dilating the carpal canal. I then introduced the scope within the cannula and identified transverse carpal ligament ensuring the median nerve was not visualized within the cannula. I triangulated distally with a 25-gauge needle identifying the distal aspect of th e transverse carpal ligament, to ensure protection of the superficial palmar arch. The arthroscopic knife was used to incise the transverse carpal ligament under direct visualization with the arthroscopic camera. Any excess transverse fibers that remained after the first past were carefully released with a repeat pass. The median nerve was then directly visualized radially without disruption. Once this was completed I placed the #3 dilator and assured I got complete release of the transverse carpal ligament without residual compression. The median nerve was directly visualized and free of any overlying compression. I then turned my attention to release of the volar antebrachial fascia proximally. Once again a Willits was used to open the wound and I proceeded with cannula #1 to #3. The arthroscope was introduced into the cannula and under direct visualization the volar antebrachial fascia was released. Once this was complete I copiusly irrigated the wound with normal saline. The skin incision was closed with 4-0 Monocryl subcutaneous and a running subcuticular 4-0 Monocryl. This was reinforced with Dermabond and Steri-Strips. Sterile, 4 x 4's and a Nicko bandage was placed loosely. Sponge counts, instrument counts and needle counts were correct. The was no intraoperative complications patient tolerated the procedure well and was stable to PACU.
[2019-07-15 18:16] VITALS: BP 116/72
== END 2019-07-15 16:30 | disposition home or self-care (01) ==
LOC: OROUT 12:03
PROVIDERS: ATTEND Orthopaedic Surgery
DX: G56.01 Carpal tunnel syndrome, right upper limb (principal); J44.9 Chronic obstructive pulmonary disease, unspecified; M32.9 Systemic lupus erythematosus, unspecified; M79.7 Fibromyalgia; D50.9 Iron deficiency anemia, unspecified; I10 Essential (primary) hypertension; G89.4 Chronic pain syndrome; Z88.8 Allergy status to other drugs, medicaments and biological substances; Z88.6 Allergy status to analgesic agent; Z88.5 Allergy status to narcotic agent; Z88.2 Allergy status to sulfonamides; Z79.51 Long term (current) use of inhaled steroids; Z79.899 Other long term (current) drug therapy; Z86.718 Personal history of other venous thrombosis and embolism; Z87.891 Personal history of nicotine dependence
CPT/HCPCS: 93005; 36415 ×2; 84132; 84703; 85025; 80048; 71046; 93010; 01810; 29848; J2250; J0690; J3010; J3490; J7060; J2704; 1810

== ENCOUNTER → 2019-12-10 | Outpatient (CLI) | payer MEDICAID ==
--- NOTE | 2019-12-10 15:38 | RADIOLOGY REPORT (SQ) ---
EXAM DESCRIPTION: U/S THYROID/SFT TISS HD NECK IMAGES COMPLETED DATE/TIME: 12/10/2019 2:19 pm REASON FOR STUDY: R60.9 EDEMA, UNSPECIFIED R60.9 EDEMA, UNSPECIFIED COMPARISON: None. TECHNIQUE: Dynamic and static brown-scale images acquired of the parotid gland. Selected additional c olor/power Doppler images recorded. All images stored to PACS. LIMITATIONS: None. FINDINGS: The right parotid gland, the site of clinical concern, is homogeneous and symmetric in tim earance compared to the contralateral gland. There is no parotid mass. IMPRESSION: No abnormality of the right parotid gland. TECHNICAL DOCUMENTATION: JOB ID: [id number] 2010 [employer]- All Rights Reserved Reading location - IP/workstation name: [email or web address]
== END ==
LOC: RAD 13:48
PROVIDERS: ATTEND Otolaryngology
DX: R22.1 Localized swelling, mass and lump, neck (principal)
CPT/HCPCS: 76536

== ENCOUNTER → 2020-01-16 | Day surgery (SDC) | payer MEDICAID ==
--- NOTE | 2020-01-16 16:42 | RADIOLOGY REPORT (SQ) ---
EXAM DESCRIPTION: U/S BX SOFT TISS NECK THORX IMAGES COMPLETED DATE/TIME: 01/16/2020 4:30 pm REASON FOR STUDY: R60.9 EDEMA, UNSPECIFIED COMPARISON: None. TECHNIQUE: The procedure, risks, benefits, and alternatives were discussed with the patient in the p reprocedural area, and all questions were answered. Informed consent was obtained verbally and in wri ting. The patient was then brought to the procedural suite, positioned supine on a gurney, and a time-out w as performed. Selected grayscale and color Doppler images of the parotid glands were then obtained ; there is no abnormality of the parotid glands. On the right there is a cluster of lymph nodes poste rior to the gland that measure up to 2 x 0.6 x 0.6 cm. Based review of these images an appropriate percutaneous access site was selected. The area around the selected access site was subsequently prep ped and draped with 2% chlorhexidine utilizing standard sterile technique. Then, after the access sit e was anesthetized with 1% lidocaine, a 25 gauge needle was advanced into the dominant lymph node uti lizing sonographic guidance ; after each pass the sample was submitted to cytopathology for review an d in total 3 passes were performed. The patient tolerated the procedure well with local anesthesia. At the end of the procedure the patient's condition was unchanged from the preprocedural baseline. Documentation of [id number] time the proceduralist spent monitoring the patient: 25 minutes. LIMITATIONS: None. FINDINGS: Integrated into the Technique. IMPRESSION: Successful US-guided FNA of a 2 x 0.6 x 0.6 cm lymph node posterior to the right parotid gland. TECHNICAL DOCUMENTATION: JOB ID: [id number] 2010 [employer]- All Rights Reserved Reading location - IP/workstation name: [email or web address]
== END ==
LOC: RAD 13:41
PROVIDERS: ATTEND Otolaryngology
DX: R60.9 Edema, unspecified (principal)
CPT/HCPCS: 21550; 88173